=== PATIENT | female | born 1970 | race Caucasian/White ===

== ENCOUNTER → 2016-09-02 | Outpatient (CLI) | payer OTHER ==
[~2016-09-02] MED LIST: IBUP-1427 PO; LEVO50TA PO; METO-157 PO; SUMA1INJ5 SQ; TPM25 PO; VITAMIN B2 PO
[2016-09-02 11:06] LABS: BASO % 0.5 %; BASO ABS # 0.03 K/uL (0-0.2); COMPLETE YES; EOS % 1.9 %; HEMATOCRIT 43.1 % (37-47); IG% 0.2 %; LYMPH % 31.8 %; LYMPH ABS # 1.83 K/uL (1.2-3.4); MEAN CELL VOLUME 90.7 fL (80-100); MEAN CORPUSCULAR HGB CONC 35.3 g/dl (32-36); MEAN PLATELET VOLUME 9.8 fL (7.4-10.4); MONO % 5.4 %; NEUT % 60.2 %; PLATELET COUNT 264 K/uL (130-400); RED BLOOD COUNT 4.75 M/uL (4.2-5.4); WHITE BLOOD COUNT 5.75 K/uL (4.8-10.8)
[2016-09-02 11:59] LABS: BLOOD UREA NITROGEN 12 mg/dl (7-18); CALCIUM 9.4 mg/dl (8.5-10.1); CARBON DIOXIDE 24 mmol/L (21-32); CHLORIDE 107 mmol/L (98-107); CHOLESTEROL 196 mg/dl (0-200); CREATININE 0.65 mg/dl (0.60-1.20); GLUCOSE 80 mg/dl (70-99); POTASSIUM 3.9 mmol/L (3.5-5.1); SODIUM 141 mmol/L (136-145); TRIGLYCERIDES 162 mg/dl (0-150); VERY LOW DENSITY LIPOPROT CALC 32 mg/dl
[2016-09-02 12:08] LABS: ALB/GLOB RATIO 1.2 (0.9-2); ALKALINE PHOSPHATASE 71 U/L (45-117); ALT/SGPT 38 U/L (12-78); AST/SGOT 22 U/L (15-37); CHOLESTEROL/HDL RATIO 3.8; HDL CHOLESTEROL 51 mg/dl; LDL CHOLESTEROL CALCULATED 113 mg/dl
== END | disposition home or self-care (01) ==
LOC: C.LAB 09:38
PROVIDERS: ATTEND Hospitalist
DX: I10 Essential (primary) hypertension (principal); E78.00 Pure hypercholesterolemia, unspecified; R53.1 Weakness; E55.9 Vitamin D deficiency, unspecified

== ENCOUNTER 2016-09-13 18:31 | Emergency (ER) | payer OTHER ==
[~2016-09-13] VITALS: Ht 160 cm; Wt 80.6 kg
[~2016-09-13 18:31] MED LIST changes: -IBUP-1427 PO; -METO-157 PO; -SUMA1INJ5 SQ; -TPM25 PO
[2016-09-13 18:46] VITALS: Ht 160 cm; Wt 80.6 kg
[2016-09-13] MEDS ORDERED: SUMA1INJ5 SQ (19:30)
[2016-09-13] MEDS ORDERED: TPM25 PO (19:30)
[2016-09-13] MEDS ORDERED: METOCLOPRAMIDE HCL INJ 5 MG/ML 2 ML VIAL IV STA (19:42)
[2016-09-13] MEDS ORDERED: KETOROLAC TROMETHAMINE 30 MG/ML VIAL IV STA (19:42)
[2016-09-13] MEDS ORDERED: SODIUM CHLORIDE 0.9% 1000ML 1,000 ML IV STA (19:42)
[2016-09-13] MEDS ORDERED: ONDANSETRON INJ 2 MG/ML 2 ML VIAL IV STA (19:42)
[2016-09-13] MEDS ORDERED: DiphenhydrAMINE HCL 50 MG/ML VIAL IV STA (19:42)
[2016-09-13] MEDS ORDERED: HYDROmorphone INJ 1 MG/ML SYR IV STA (19:42)
--- NOTE | 2016-09-13 19:45 | EMERGENCY ROOM VISIT NOTE ---
History Report prepared by Rosa: Aliya Dyer Under the Supervision of: Dr. Sampson Barcenas M.D. First contact with patient: 19:34 Chief Complaint: HEADACHE Stated Complaint: MIGRAINE, VOMITING History of Present Illness The patient is a 45 year old female who presents to the Emergency Room with complaints of constant pain from headache beginning this morning. The patient notes that she woke up with the headache. She also experienced nausea and vomiting. She was seen at [facility] ED where she was given Dilaudid and Zofran with normally work to treat her headaches. She states she got home and had the headache and vomiting again. She does have chronic migraines and notes that she has been experiencing one once a week for the past 2 months. The patient is followed by a neurologist but has never had imaging done of her head. She denies numbness. Source of History: patient Onset: this morning Position: head Quality: other (headache) Timing: constant Associated Symptoms: + headache, + nausea, + vomiting, No numbness Review of Systems See HPI for pertinent positives & negatives. A total of 10 systems reviewed and were otherwise negative. Past Medical & Surgical Medical Problems: (1) Migraine Surgical Problems: (1) H/O tubal ligation (2) S/P cholecystectomy Family History Patient reports no known family medical history. Social History Smoking Status: Never Smoker Marital Status: Housing Status: lives with family Occupation Status: employed Current/Historical Medications Scheduled Levothyroxine Sodium (Synthroid), 50 MCG PO QAM Topiramate (Topiramate), 25 MG PO HS Scheduled PRN Ibuprofen Tab (Motrin), 600 MG PO Q6H PRN for Pain Metoclopramide (Reglan), 10 MG PO Q6H PRN for Nausea Sumatriptan Succinate (Sumatriptan Succinate), 6 MG SQ UD PRN for Migraine Allergies Coded Allergies: Codeine (Verified Allergy, Intermediate, TACHYCARDIA, CHEST PAIN, 09/13/16) Physical Exam Vital Signs Date Time Temp Pulse Resp B/P Pulse Ox O2 Delivery O2 Flow Rate FiO2 09/13/16 21:29 37.0 83 18 125/69 95 09/13/16 20:43 83 125/69 95 Room Air 09/13/16 18:46 37.0 97 18 147/92 98 Room Air Physical Exam CONSTITUTIONAL: Moderate and severe painful distress, appears nauseous. HEENT: No icterus, moist mucous membranes NECK: No meningismus, trachea is midline. CARDIOVASCULAR: Regular rate, normal perfusion RESPIRATORY: Unlabored breathing. Clear to auscultation. GASTROINTESTINAL: Non-tender GENITOURINARY: No flank tenderness MUSCULOSKELETAL: Full range of motion NEUROLOGIC: No acute gross focal deficits. PSYCHIATRIC: Normal affect SKIN: Normal for ethnicity. Medical Decision & Procedures ER Provider Diagnostic Interpretation: CT results as stated below per my review and radiologist interpretation. CT HEAD WITHOUT CONTRAST (CT) CLINICAL HISTORY: Chronic recurrent headaches. Increasing in intensity. COMPARISON STUDY: No previous studies for comparison. TECHNIQUE: Axial CT of the brain is performed from the vertex to the skull base. IV contrast was not administered for this examination. CT DOSE: 537.48 mGy.cm FINDINGS: No intra or extra-axial mass lesions are visualized. There is no CT evidence of acute cortical infarction. There is no evidence of midline shift. There is no acute hemorrhage. No calvarial fractures are visualized. There is no evidence of pathologic ventricular dilatation. There is partial opacification of a septated anterior left maxillary sinus air cell IMPRESSION: No acute intracranial findings Electronically signed by: Timmy Canales M.D. 09/13/2016 8:29 PM Dictated Date/Time: 09/13/2016 8:28 PM Laboratory Results 09/13/16 19:50 Red Blood Count 4.99, Mean Corpuscular Volume 90.2, Mean Corpuscular Hemoglobin 32.7, Mean Corpuscular Hemoglobin Concent 36.2, Mean Platelet Volume 9.6, Neutrophils (%) (Auto) 85.5, Lymphocytes (%) (Auto) 11.1, Monocytes (%) (Auto) 3.0, Eosinophils (%) (Auto) 0.1, Basophils (%) (Auto) 0.1, Neutrophils # (Auto) 9.07, Lymphocytes # (Auto) 1.18, Monocytes # (Auto) 0.32, Eosinophils # (Auto) 0.01, Basophils # (Auto) 0.01 09/13/16 19:50 Test 09/13/16 19:50 White Blood Count 10.61 K/uL (4.8-10.8) Red Blood Count 4.99 M/uL (4.2-5.4) Hemoglobin 16.3 g/dL (12.0-16.0) Hematocrit 45.0 % (37-47) Mean Corpuscular Volume 90.2 fL (80-100) Mean Corpuscular Hemoglobin 32.7 pg (25-34) Mean Corpuscular Hemoglobin Concent 36.2 g/dl (32-36) Platelet Count 324 K/uL (130-400) Mean Platelet Volume 9.6 fL (7.4-10.4) Neutrophils (%) (Auto) 85.5 % Lymphocytes (%) (Auto) 11.1 % Monocytes (%) (Auto) 3.0 % Eosinophils (%) (Auto) 0.1 % Basophils (%) (Auto) 0.1 % Neutrophils # (Auto) 9.07 K/uL (1.4-6.5) Lymphocytes # (Auto) 1.18 K/uL (1.2-3.4) Monocytes # (Auto) 0.32 K/uL (0.11-0.59) Eosinophils # (Auto) 0.01 K/uL (0-0.5) Basophils # (Auto) 0.01 K/uL (0-0.2) RDW Standard Deviation 42.1 fL (36.4-46.3) RDW Coefficient of Variation 12.8 % (11.5-14.5) Immature Granulocyte % (Auto) 0.2 % Immature Granulocyte # (Auto) 0.02 K/uL (0.00-0.02) Anion Gap 11.0 mmol/L (3-11) Est Creatinine Clear Calc Drug Dose 90.4 ml/min Estimated GFR () 104.8 Estimated GFR (Non- 90.4 BUN/Creatinine Ratio 12.7 (10-20) Calcium Level 9.9 mg/dl (8.5-10.1) Magnesium Level 2.1 mg/dl (1.8-2.4) Chemistry Specimen Hemolysis Labs reviewed by ED physician. Medications Administered Medications (Trade) Dose Ordered Sig/Duane Route Start Time Stop Time Status Last Admin Dose Admin Sodium Chloride (Nss 1000ml) 1,000 ml @ 0 mls/hr Q0M STAT IV 09/13/16 19:42 09/13/16 19:44 DC 09/13/16 20:02 0 MLS/HR Ketorolac Tromethamine (Toradol Inj) 30 mg NOW STAT IV 09/13/16 19:42 09/13/16 19:44 DC 09/13/16 20:03 30 MG Ondansetron HCl (Zofran Inj) 4 mg NOW STAT IV 09/13/16 19:42 09/13/16 19:44 DC 09/13/16 20:03 4 MG Hydromorphone HCl (Dilaudid Inj) 1 mg PRN STAT IV 09/13/16 19:42 09/13/16 19:44 DC 09/13/16 20:02 1 MG Metoclopramide HCl (Reglan Inj) 10 mg NOW STAT IV 09/13/16 19:42 09/13/16 19:44 DC 09/13/16 20:03 10 MG Diphenhydramine HCl (Benadryl Inj) 25 mg NOW STAT IV 09/13/16 19:42 09/13/16 19:44 DC 09/13/16 20:03 25 MG ED Course 1935: Past medical records reviewed. The patient was evaluated in room A3. A complete history and physical examination was performed. 1941: Benadryl Inj 25 mg IV, Reglan Inj 10 mg IV, Dilaudid Inj 1 mg IV, Zofran Inj 4 mg IV, Toradol Inj 30 mg IV, Sodium Chloride 1,000 ml @ 0 mls/hr Wide Open IV. 2107: Upon reexamination the patient is hemodynamically stable. I discussed results and treatment plan with the patient. She verbalizes agreement and understanding. The patient is ready for discharge. Medical Decision Differential diagnoses include but are not limited to; headache, migraine, tumor. 45-year-old with long-standing history of migraine-like headaches becoming increasingly worse over the last few weeks to months occurring nearly once per week presents to emergency room for intractable pain after being seen a local ER. She reports seeing a neurologist but no prior intracranial imaging and no imaging was reportedly performed at the [facility]. Emergency department evaluation including intracranial imaging was negative here and patient was comfortable on reexamination prior to discharge after receiving Toradol, Reglan , Benadryl. Impression Primary Impression: Migraine Scribe Attestation The scribe's documentation has been prepared under my direction and personally reviewed by me in its entirety. I confirm that the note above accurately reflects all work, treatment, procedures, and medical decision making performed by me. Departure Information Dispostion Home / Self-Care Prescriptions Ibuprofen Tab (MOTRIN) 600 Mg Tab 600 MG PO Q6H Y for Pain, #20 TAB Prov: Sampson Barcenas MD 09/13/16 Metoclopramide (Reglan) 10 Mg Tab 10 MG PO Q6H Y for Nausea, #20 TAB Prov: Sampson Barcenas MD 09/13/16 Referrals Alex Durand M.D. (PCP) Forms HOME CARE DOCUMENTATION FORM, IMPORTANT VISIT INFORMATION Patient Instructions ED Headache Migraine, [facility]
[2016-09-13 20:10] LABS: BASO % 0.1 %; BASO ABS # 0.01 K/uL (0-0.2); COMPLETE YES; EOS % 0.1 %; IG% 0.2 %; LYMPH % 11.1 %; LYMPH ABS # 1.18 K/uL (1.2-3.4); MEAN CELL VOLUME 90.2 fL (80-100); MEAN CORPUSCULAR HEMOGLOBIN 32.7 pg (25-34); MEAN CORPUSCULAR HGB CONC 36.2 g/dl (32-36); MEAN PLATELET VOLUME 9.6 fL (7.4-10.4); NEUT % 85.5 %; PLATELET COUNT 324 K/uL (130-400); RED BLOOD COUNT 4.99 M/uL (4.2-5.4); WHITE BLOOD COUNT 10.61 K/uL (4.8-10.8)
--- NOTE | 2016-09-13 20:31 | DIAGNOSTIC IMAGING REPORT ---
CT HEAD WITHOUT CONTRAST (CT) CLINICAL HISTORY: Chronic recurrent headaches. Increasing in intensity. COMPARISON STUDY: No previous studies for comparison. TECHNIQUE: Axial CT of the brain is performed from the vertex to the skull base. IV contrast was not administered for this examination. CT DOSE: 537.48 mGy.cm FINDINGS: No intra or extra-axial mass lesions are visualized. There is no CT evidence of acute cortical infarction. There is no evidence of midline shift. There is no acute hemorrhage. No calvarial fractures are visualized. There is no evidence of pathologic ventricular dilatation. There is partial opacification of a septated anterior left maxillary sinus air cell IMPRESSION: No acute intracranial findings Electronically signed by: Timmy Canales M.D. 09/13/2016 8:29 PM Dictated Date/Time: 09/13/2016 8:28 PM
[2016-09-13 20:37] LABS: BUN/CREATININE RATIO 12.7 (10-20); CALCIUM 9.9 mg/dl (8.5-10.1); CREATININE 0.79 mg/dl (0.60-1.20); MAGNESIUM 2.1 mg/dl (1.8-2.4)
[2016-09-13] MEDS ORDERED: METO-157 PO (21:06)
[2016-09-13] MEDS ORDERED: IBUP-1427 PO (21:06)
[2016-09-13 21:29] VITALS: BP 125/69; PULSE 83; TEMP 37; O2SAT 95
== END 2016-09-13 21:30 | disposition home or self-care (01) ==
LOC: C.EDB 18:33 → C.EDA 21:30
DX: G43.909 Migraine, unspecified, not intractable, without status migrainosus (principal)

== ENCOUNTER → 2016-10-30 | Outpatient (CLI) | payer OTHER ==
[~2016-10-30] MED LIST changes: +GADAVIST IV PRN; +IBUP-1427 PO; +METO-157 PO; +SUMA1INJ5 SQ; +TPM25 PO; -VITAMIN B2 PO
--- NOTE | 2016-11-03 13:48 | MAMMOGRAPHY REPORT ---
BREAST MRI OF BOTH BREASTS : 10/30/2016 CLINICAL HISTORY: Interval follow-up MRI for enhancing focus in the left lower outer quadrant. Jace te history of Hodgkin's lymphoma status post radiation therapy to the chest. Also with a history of bilateral reduction mammoplasty. COMPARISON: Comparison is made to exams dated: 02/27/2016 ultrasound, 02/27/2016 mammogram, and 015 mammogram - [facility]. Breast MRI dated 05/01/2015. Technique: The patient was placed prone in a dedicated breast imaging coil. Precontrast axial T1-we ighted, axial T2-weighted fat saturation, and axial T1-weighted fat saturation images were obtained. After the administration of 8 mL of Gadavist IV contrast, sequential T1-weighted fat saturation im ages were obtained. Subtraction images were obtained of the dynamic contrast enhanced sequences, an d 3-D reformations were performed. The [employer]oon[employer] software was used for kinetic analysis. Findings: There is minimal background parenchymal enhancement involving bilateral breasts. Again noted are po stsurgical changes from bilateral reduction mammoplasty. There are no suspicious enhancing masses o r areas of abnormal non-mass enhancement seen within either breast. The previously seen focus of en hancement within the left lower inner quadrant on prior breast MRI dated 05/01/2015 is no longer evide nt, and is therefore consistent with a benign finding. There is no evidence of axillary adenopathy. The chest wall structures are negative. Extramammary soft tissues are unremarkable. IMPRESSION: ACR BI-RADS CATEGORY 2: BENIGN No MRI evidence of malignancy in either breast. A 1 year screening breast MRI is recommended. The p atient is also due for routine bilateral screening mammograms at this time, if they have not been pe rformed elsewhere. Candy Neves M.D. /:10/30/2016 18:12:13 Assembly Machine Set Up Mechanic: gunner's mate m, [facility] letter sent: Normal 1/2 BI-RADS Code: ACR BI-RADS Category 2: Benign
== END | disposition home or self-care (01) ==
LOC: C.MRI 06:44
PROVIDERS: ATTEND Obstetrics & Gynecology
DX: Z08 Encounter for follow-up examination after completed treatment for malignant neoplasm (principal); Z92.3 Personal history of irradiation; Z85.72 Personal history of non-Hodgkin lymphomas

== ENCOUNTER → 2017-04-01 | Outpatient (CLI) | payer OTHER ==
[~2017-04-01] MED LIST changes: -GADAVIST IV PRN; -IBUP-1427 PO; -METO-157 PO
[2017-04-01 17:53] LABS: ALT/SGPT 37 U/L (12-78); AST/SGOT 21 U/L (15-37); BLOOD UREA NITROGEN 12 mg/dl (7-18); BUN/CREATININE RATIO 14.4 (10-20); CALCIUM 9.7 mg/dl (8.5-10.1); CARBON DIOXIDE 25 mmol/L (21-32); CHLORIDE 108 mmol/L (98-107); CHOLESTEROL 196 mg/dl (0-200); CREATININE 0.84 mg/dl (0.60-1.20); GLUCOSE 80 mg/dl (70-99); POTASSIUM 3.6 mmol/L (3.5-5.1); SODIUM 140 mmol/L (136-145); TRIGLYCERIDES 186 mg/dl (0-150); VERY LOW DENSITY LIPOPROT CALC 37 mg/dl
[2017-04-01 18:00] LABS: BASO % 0.8 %; BASO ABS # 0.04 K/uL (0-0.2); COMPLETE YES; EOS % 1.3 %; HEMATOCRIT 44.7 % (37-47); LYMPH % 40.9 %; LYMPH ABS # 2.13 K/uL (1.2-3.4); MEAN CELL VOLUME 93.3 fL (80-100); MEAN CORPUSCULAR HEMOGLOBIN 31.7 pg (25-34); MEAN PLATELET VOLUME 10.4 fL (7.4-10.4); MONO % 6.1 %; NEUT % 50.9 %; PLATELET COUNT 242 K/uL (130-400); RED BLOOD COUNT 4.79 M/uL (4.2-5.4); WHITE BLOOD COUNT 5.21 K/uL (4.8-10.8)
[2017-04-01 18:02] LABS: ALB/GLOB RATIO 1.3 (0.9-2); ALKALINE PHOSPHATASE 79 U/L (45-117); CHOLESTEROL/HDL RATIO 4.6; HDL CHOLESTEROL 43 mg/dl; LDL CHOLESTEROL CALCULATED 116 mg/dl
== END | disposition home or self-care (01) ==
LOC: C.LABBFT 12:53
PROVIDERS: ATTEND Hospitalist
DX: E03.9 Hypothyroidism, unspecified (principal); G43.919 Migraine, unspecified, intractable, without status migrainosus; E78.00 Pure hypercholesterolemia, unspecified

== ENCOUNTER → 2017-08-06 | Outpatient (CLI) | payer OTHER ==
--- NOTE | 2017-08-07 13:37 | MAMMOGRAPHY REPORT ---
BILATERAL DIGITAL SCREENING MAMMOGRAM TOMOSYNTHESIS WITH CAD: 08/06/2017 CLINICAL HISTORY: Routine screening. Patient has no complaints. TECHNIQUE: Breast tomosynthesis in addition to standard 2D mammography was performed. Current study was also evaluated with a Computer Aided Detection (CAD) system. COMPARISON: Comparison is made to exams dated: 02/27/2016 mammogram, 05/01/2015 mammogram - [facility], 11/29/2013 mammogram, 04/27/2012 mammogram, 03/06/2009 mammogram, and 03/13/2008 mammogr am - [facility]. BREAST COMPOSITION: There are scattered areas of fibroglandular density in both breasts. FINDINGS: No suspicious masses, calcifications, or areas of architectural distortion are noted in ei ther breast. There has been no significant interval change compared to prior exams. Scattered bilater al benign-appearing calcifications are not significantly changed. A biopsy marker clip is again note d within the right upper outer quadrant. Asymmetry superior to the biopsy marker clip in the right s uperior breast is stable dating back to at least the 2008 exam. There are stable changes from bilate ral reduction mammoplasty. IMPRESSION: ACR BI-RADS CATEGORY 2: BENIGN There is no mammographic evidence of malignancy. A 1 year screening mammogram is recommended. The pa tient will receive written notification of the results. Approximately 10% of breast cancers are not detected with mammography. A negative mammographic report should not delay biopsy if a clinically suggestive mass is present. Candy Neves M.D. ah/:08/06/2017 16:24:17 Coagulating Drying Supervisor: Daya JOSEPH(R)(M), [facility] letter sent: Normal 1/2 BI-RADS Code: ACR BI-RADS Category 2: Benign
== END | disposition home or self-care (01) ==
LOC: C.MAMM 09:45
PROVIDERS: ATTEND Obstetrics & Gynecology
DX: Z12.31 Encounter for screening mammogram for malignant neoplasm of breast (principal)

== ENCOUNTER → 2017-11-10 | Outpatient (CLI) | payer OTHER ==
[~2017-11-10] MED LIST changes: +GADAVIST IV PRN
--- NOTE | 2017-11-11 15:36 | MAMMOGRAPHY REPORT ---
BREAST MRI OF BOTH BREASTS : 11/10/2017 CLINICAL HISTORY: 47-year-old woman with a history of bilateral reduction mammoplasty and prior chest radiation for Hodgkin's lymphoma presents for annual screening breast MRI. COMPARISON: Comparison is made to exams dated: 10/30/2016 breast MRI, 08/06/2017 mammogram, 02/27/2016 u ltrasound, 02/27/2016 mammogram, 05/01/2015 breast MRI, and 05/01/2015 mammogram - [facility] enter. TECHNIQUE: Using a 1.5 Joanne magnet and dedicated breast coil, multisequence axial images were obtai arnoldo through the breasts. After uneventful IV administration of 7 mL of Gadavist, dynamic multiphase contrast-enhanced axial images, and sagittal postcontrast were obtained. Temporal subtraction axial images and 3-D MIP images are provided. Everything was then reviewed on a 3-D workstation, [employer]. FINDINGS: There is minimal background parenchymal enhancement in the breasts. Stable non-mass enhancement in th e upper outer posterior right breast comparing to prior breast MRIs, likely representing fibrocystic change. No new suspicious enhancing mass, suspicious non-mass enhancement, suspicious kinetics or un expected architectural distortion identified in either breast. A previously described 4 mm focus of enhancement in the inferior left breast is no longer identified, confirming benignity. No skin thick ening or nipple retraction is seen. No suspicious axillary adenopathy identified. IMPRESSION: ACR BI-RADS CATEGORY 2: BENIGN There is no MRI evidence of malignancy in the breasts. Continuation of annual screening mammography and screening breast MRI is recommended. The patient will receive written notification of the results. Sandrine Pena M.D. ay/:11/10/2017 20:23:46 Combine Operator: enrollment nurse, [facility] letter sent: Normal 1/2 BI-RADS Code: ACR BI-RADS Category 2: Benign
== END | disposition home or self-care (01) ==
LOC: C.MRI 14:49
PROVIDERS: ATTEND Obstetrics & Gynecology
DX: Z92.3 Personal history of irradiation (principal)

== ENCOUNTER → 2017-11-13 | Outpatient (CLI) | payer OTHER ==
[~2017-11-13] MED LIST changes: -GADAVIST IV PRN
== END | disposition home or self-care (01) ==
LOC: C.PATHSPEC 13:26
PROVIDERS: ATTEND Dermatology
DX: D22.5 Melanocytic nevi of trunk (principal)

== ENCOUNTER → 2018-04-16 | Outpatient (CLI) | payer OTHER ==
[2018-04-16 12:32] LABS: BASO % 0.5 %; BASO ABS # 0.03 K/uL (0-0.2); EOS ABS # 0.13 K/uL (0-0.5); HEMATOCRIT 42.8 % (37-47); HEMOGLOBIN 14.3 g/dL (12.0-16.0); IG# 0.01 K/uL (0.00-0.02); LYMPH % 23.3 %; LYMPH ABS # 1.49 K/uL (1.2-3.4); MEAN CELL VOLUME 93.9 fL (80-100); MEAN CORPUSCULAR HEMOGLOBIN 31.4 pg (25-34); MEAN CORPUSCULAR HGB CONC 33.4 g/dl (32-36); MEAN PLATELET VOLUME 10.2 fL (7.4-10.4); MONO % 7.7 %; MONO ABS # 0.49 K/uL (0.11-0.59); NEUT % 66.3 %; NEUT ABS # 4.24 K/uL (1.4-6.5); PLATELET COUNT 248 K/uL (130-400); RED CELL DISTRIBUTION WIDTH CV 14.1 % (11.5-14.5); RED CELL DISTRIBUTION WIDTH SD 48.2 fL (36.4-46.3); WHITE BLOOD COUNT 6.39 K/uL (4.8-10.8)
[2018-04-16 12:57] LABS: ALBUMIN 3.9 gm/dl (3.4-5.0); ALKALINE PHOSPHATASE 82 U/L (45-117); ALT/SGPT 27 U/L (12-78); AST/SGOT 13 U/L (15-37); BLOOD UREA NITROGEN 13 mg/dl (7-18); CARBON DIOXIDE 20 mmol/L (21-32); CHOLESTEROL 200 mg/dl (0-200); CREATININE 0.81 mg/dl (0.60-1.20); GLUCOSE 90 mg/dl (70-99); LDL CHOLESTEROL CALCULATED 123 mg/dl; POTASSIUM 3.8 mmol/L (3.5-5.1); SODIUM 141 mmol/L (136-145); TOTAL PROTEIN 7.4 gm/dl (6.4-8.2)
== END | disposition home or self-care (01) ==
LOC: C.LABBFT 07:36
PROVIDERS: ATTEND Hospitalist
DX: E03.9 Hypothyroidism, unspecified (principal); E78.00 Pure hypercholesterolemia, unspecified; I10 Essential (primary) hypertension

== ENCOUNTER → 2018-04-21 | Outpatient (CLI) | payer OTHER | END | disposition home or self-care (01) | LOC: C.LAB 17:49 | PROVIDERS: ATTEND Hospitalist | DX: E03.9 Hypothyroidism, unspecified (principal); E78.00 Pure hypercholesterolemia, unspecified ==

== ENCOUNTER 2020-09-23 00:44 | Inpatient (IN) ==
[2020-09-23] MEDS ORDERED: ONDANSETRON INJ 2 MG/ML 2 ML VIAL IV STA (01:10)
[2020-09-23] MEDS ORDERED: SODIUM CHLORIDE 0.9% 1000ML 1,000 ML IV ONE (01:10)
[2020-09-23] MEDS ORDERED: HYDROmorphone INJ 1 MG/ML SYRINGE IV STA ×2 (01:13→03:07)
--- NOTE | 2020-09-23 01:28 | Emergency Department Note ---
History of Present Illness General Chief complaint: Abdominal Pain Stated complaint: ABD PAIN FOLLOWING 1ST CHEMO TREATMENT,REF BY DOC Time Seen by Provider: 09/23/20 00:55 Source: patient Mode of arrival: ambulatory Limitations: no limitations History of Present Illness Maximum Pain Intensity: 7 This patient is a 49-year-old female who presents to the emergency department for evaluation of abdominal pain. Patient reports that she is currently undergoing treatment for breast cancer. She is receiving chemotherapy with carboplatin and Abraxane. She received her first dose 3 days ago. She is seen at [place] for oncology. Patient states that about 12 hours ago, she began to develop abdominal pain. Pain has gradually worsened. Pain is all throughout her abdomen, but primarily in the upper abdomen. She describes it as a tight, crampy pain and rates her current discomfort a 7/10. She tried heat, a hot shower, Compazine and an enema without relief. She does report some low back pain and "bone pain" throughout her body. She denies nausea/vomiting or urinary symptoms. She had a normal bowel movement yesterday. She does not have a menstrual period due to history of an ablation. She has a history of cholecystectomy and . Patient additionally reports a history of Hodgkin's lymphoma at age 22. She denies any fevers. Home Medications Medication Instructions Recorded Confirmed Type levothyroxine 50 mcg tablet 50 mcg PO QAM 07/04/19 09/23/20 History Botox 1 unit IM UD 10/26/19 09/23/20 History acetaminophen [Tylenol Extra 1,000 mg PO Q6H PRN 02/28/20 09/23/20 History Strength] ibuprofen [Advil] 600 mg PO Q6H PRN 02/28/20 09/23/20 History dexamethasone 4 mg PO BID PRN 09/23/20 09/23/20 History ondansetron 4 mg PO Q12 PRN 09/23/20 09/23/20 History prochlorperazine maleate 10 mg PO QID PRN 09/23/20 09/23/20 History Allergies Allergy/AdvReac Type Severity Reaction Status Date / Time codeine Allergy Intermediate TACHYCARDIA, Verified 09/23/20 01:36 CHEST PAIN Past Med/Surg History Medical History (Updated 09/23/20 @ 06:47 by Celeste Epstein PA-C) Anxiety Essential hypertension HX OF Family history of reaction to anesthesia mother nausea History of anesthesia reaction DENIES HX ANESTHESIA REACTION(S): REPORTS HX CHEMO BLEOMYCIN (?SPELLING/PT NOT SURE) - WAS TOLD THAT IF HAVING ANESTHESIA TO NOTIFY OF BLEOMYCIN HX AND OXYGEN TOXICITY (PT REPORTS HAS NEVER HAD PROBLEM WITH) History of migraine headaches CURRENT MEDS FOR Hodgkin disease HX OF, HX CHEMO Hypothyroidism Kidney infection CURRENT Kidney stone PONV (postoperative nausea and vomiting) NAUSEA ONLY Surgical History H/O tubal ligation History of 3 sections History of lung biopsy Hx of bilateral breast reduction surgery Hx of cholecystectomy Family History Mother Breast cancer Father Colorectal cancer Social History Smoking Status: Never smoker Second Hand Exposure: No; Do You Dip or Chew Tobacco: No; Hx Alcohol Use: No Hx Substance Use: No Preferred Language: Thai Communication Ability: Effective Visual Impairment: No Limitations Hearing Ability: Normal Produce Clerk Required: No Beliefs That Will Affect Care: None marital status: Current Living Situation: Spouse current occupational status: employed current occupation: Finance [employer] Other Information That Helps Us Care for You: No Feels Safe at Home: Yes Safety Concerns: Feels Safe At This Time Assistive Devices: Glasses Review of Systems A total of 10 systems reviewed and were otherwise negative Physical Exam Vital Signs Vital Signs - 24 hr 09/23/20 00:49 09/23/20 01:27 09/23/20 02:00 Temperature 36.5 C Temperature Source Oral Pulse Rate 88 Pulse Rate [Finger] 86 78 Respiratory Rate 16 18 20 Respiratory Depth Normal Normal Normal Blood Pressure 140/91 Blood Pressure [Right Arm] 130/83 138/81 Blood Pressure Mean 107 Blood Pressure Mean [Right Arm] 98 100 Blood Pressure Position Lying Pulse Oximetry 97 94 93 Oxygen Delivery Method Room Air Room Air Room Air Sepsis Recent Fever Within 48 Hours No Sepsis New/Unexplained Change in Mental Status No Sepsis Action Taken by Nursing No Action Required 09/23/20 03:00 Temperature Temperature Source Pulse Rate Pulse Rate [Finger] 84 Respiratory Rate 18 Respiratory Depth Normal Blood Pressure Blood Pressure [Right Arm] 134/80 Blood Pressure Mean Blood Pressure Mean [Right Arm] 98 Blood Pressure Position Pulse Oximetry 98 Oxygen Delivery Method Room Air Sepsis Recent Fever Within 48 Hours Sepsis New/Unexplained Change in Mental Status Sepsis Action Taken by Nursing VITALS: Vitals are noted on the nurse's note and reviewed by myself. Vital signs stable. GENERAL: This is a 49-year-old female, in no acute distress, well-developed well-nourished. SKIN: The skin was without rashe. HEAD: Normocephalic atraumatic. EARS: External auditory canals clear, tympanic membranes pearly pan without erythema or effusion bilaterally. EYES: Pupils equal round and reactive to light and accommodation. MOUTH: Mucous membranes moist. Tonsils are not enlarged. Pharynx without erythema or exudate. NECK: Supple without nuchal rigidity. No lymphadenopathy. HEART: Regular rate and rhythm without murmurs gallops or rubs. LUNGS: Clear to auscultation bilaterally without wheezes, rales or rhonchi. ABDOMEN: Positive bowel sounds x 4. Soft, moderate generalized tenderness to palpation. No guarding or rebound tenderness. NEURO: Patient was alert and oriented to person place and time. Course Administered Medications Discontinued Medications Hydromorphone HCl (Hydromorphone Inj 1 Mg/Ml Syringe) 1 mg IV NOW STA Stop: 09/23/20 01:14 Last Admin: 09/23/20 01:27 Dose: 1 mg Documented by: [id number] Hydromorphone HCl (Hydromorphone Inj 1 Mg/Ml Syringe) 1 mg IV NOW STA Stop: 09/23/20 03:08 Last Admin: 09/23/20 03:11 Dose: 1 mg Documented by: [id number] Sodium Chloride (Nss 1000ml) 1,000 mls @ 999 mls/hr IV .Q1H1M ONE Stop: 09/23/20 02:10 Last Infusion: 09/23/20 02:27 Dose: 0 mls/hr Documented by: [id number] Admin: 09/23/20 01:26 Dose: 999 mls/hr Documented by: [id number] Lactated Ringer's (Lr) 1,000 mls @ 999 mls/hr IV .Q1H1M ONE Stop: 09/23/20 06:05 Last Admin: 09/23/20 06:08 Dose: 999 mls/hr Documented by: [id number] Ioversol (Ioversol 100ml) 94 ml IV ONCE ONE Stop: 09/23/20 02:26 Last Admin: 09/23/20 02:25 Dose: 94 ml Documented by: [id number] Ketorolac Tromethamine (Ketorolac Tromethamine 15 Mg/Ml Vial) 15 mg IV NOW STA Stop: 09/23/20 02:38 Last Admin: 09/23/20 02:40 Dose: 15 mg Documented by: [id number] Ondansetron HCl (Ondansetron Inj 2 Mg/Ml 2 Ml Vial) 4 mg IV NOW STA Stop: 09/23/20 01:11 Last Admin: 09/23/20 01:27 Dose: 4 mg Documented by: [id number] Medical Decision Making Differential Diagnosis Differential diagnosis includes appendicitis, diverticulitis, bowel obstruction, inflammatory bowel disease, renal colic, PUD, biliary pathology, pancreatitis, mesenteric ischemia, aortic pathology, infection, genitourinary, UTI, perforated viscus, among others. Home Medications Current Medication List: was personally reviewed by me Laboratory Data Attestation: I reviewed the patient's lab results. Result diagrams: 09/23/20 01:12 09/23/20 01:12 Lab Results 09/23/20 09/23/20 Range/Units 01:12 01:12 WBC 13.15 H (4.8-10.8) K/uL RBC 4.55 (4.2-5.4) M/uL Hgb 14.2 (12.0-16.0) g/dL Hct 41.8 (37-47) % MCV 91.9 (80-100) fL MCH 31.2 (25-34) pg MCHC 34.0 (32-36) g/dL RDW Std Deviation 44.2 (36.4-46.3) fL RDW Coeff of Chen 13.3 (11.5-14.5) % Plt Count 220 (130-400) K/uL MPV 10.4 (7.4-10.4) fL Immature Gran % (Auto) 0.2 % Neut % (Auto) 83.3 % Lymph % (Auto) 14.8 % Hockley % (Auto) 1.7 % Eos % (Auto) 0.0 % Baso % (Auto) 0.0 % Neut # (Auto) 10.97 H (1.4-6.5) K/uL Lymph # (Auto) 1.94 (1.2-3.4) K/uL Hockley # (Auto) 0.22 (0.11-0.59) K/uL Eos # (Auto) 0.00 (0-0.5) K/uL Baso # (Auto) 0.00 (0-0.2) K/uL Immature Gran # (Auto) 0.02 (0.00-0.02) K/uL Sodium 138 (136-145) mmol/L Potassium 3.9 (3.5-5.1) mmol/L Chloride 105 (98-107) mmol/L Carbon Dioxide 29 (21-32) mmol/L Anion Gap 4.0 (3-11) BUN 18 (7-18) mg/dl Creatinine 0.67 (0.6-1.2) mg/dl Est Cr Clr Drug Dosing 102.7 ml/min Est GFR ( Amer) 119.6 Est GFR (Non-Af Amer) 103.2 BUN/Creatinine Ratio 27.1 H (10-20) Glucose 97 (70-99) mg/dl Calcium 8.8 (8.5-10.1) mg/dl Total Bilirubin 0.9 (0.2-1) mg/dl AST 15 (15-37) U/L ALT 53 (12-78) U/L Alkaline Phosphatase 72 (45-117) U/L Total Protein 6.8 (6.4-8.2) gm/dl Albumin 3.7 (3.4-5.0) gm/dl Globulin 3.1 (2.5-4.0) gm/dl Albumin/Globulin Ratio 1.2 (0.9-2) Lipase 4301 H (73-393) U/L Imaging Data Attestation: I personally reviewed and interpreted this imaging study as follows: Radiologist's Impression: CT ABDOMEN & PELVIS With Contrast: Prior from 09/18/2020. Mild peripancreatic fat stranding, new since the prior. Consistent with acute pancreatitis. No discrete fluid collection. Normal appendix. Colonic diverticulosis. Bibasilar atelectasis. Right lower lobe peripheral nodule. Similar to prior. Stable calcified left mediastinal lesions, partially visualized. Fatty liver. Cholecystectomy. Nonobstructing left renal calculi. Stable appearance of renal lesions as described on the prior. No hydronephrosis. Radiologist: Kristen Fortune M.D. MDM Narrative Continuous court recording monitor: Order was placed for continuous court recording monitor. Patient was placed on the court recording monitor. Patient was noted to be in normal sinus rhythm at an initial rate of 88 bpm. The patient is a 49-year-old female who presents today complaining of abdominal pain. Patient is currently undergoing chemotherapy for breast cancer. She had her first treatment this past week. Her work-up is consistent with acute guidry creatitis. Lipase is elevated at 4300, labs otherwise show a mild leukocytosis and are unremarkable. CT scan consistent with pancreatitis. Patient was treated with IV fluids, Dilaudid, Zofran and Toradol. Etiology of her pancreatitis is unclear, as she has already had a cholecystectomy and does not drink alcohol. Patient was agreeable to admission. Case discussed with the hospitalist service, who agreed to evaluate patient for further care. Impression & Plan Acute pancreatitis Discharge Plan Visit Data Chief Complaint: Abdominal Pain Stated Complaint: ABD PAIN FOLLOWING 1ST CHEMO TREATMENT,REF BY DOC ED Provider: Karl Parkinson ED Midlevel Provider: Celeste Epstein Discharge Problem: Acute pancreatitis Patient Disposition: Admitted As Inpatient Discharge Instructions Interventions: ED Discharge Assessment Last Done: 09/23/20 04:46 Discharge Problem: Acute pancreatitis Qualifiers: Pancreatitis type: unspecified pancreatitis type Acute pancreatitis complication: unspecified Qualified Code(s): K85.90 - Acute pancreatitis without necrosis or infection, unspecified
[2020-09-23 01:36] LABS: Hematocrit (blood only) 41.8 % (37-47); Hemoglobin 14.2 g/dL (12.0-16.0); Immature Granulocytes # (auto) 0.02 K/uL (0.00-0.02); Immature Granulocytes % (auto) 0.2 %; Lymphocytes # (auto) 1.94 K/uL (1.2-3.4); Lymphocytes % (auto) 14.8 %; Mean Corpuscular Hemoglobin 31.2 pg (25-34); Mean Corpuscular Volume 91.9 fL (80-100); Mean Platelet Volume 10.4 fL (7.4-10.4); Monocytes # (auto) 0.22 K/uL (0.11-0.59); Monocytes % (auto) 1.7 %; Neutrophils # (auto) 10.97 K/uL (1.4-6.5); Neutrophils % (auto) 83.3 %; Platelet Count 220 K/uL (130-400); RDW Coefficient of Variation 13.3 % (11.5-14.5); RDW Standard Deviation 44.2 fL (36.4-46.3); Red Blood Count 4.55 M/uL (4.2-5.4); White Blood Count 13.15 K/uL (4.8-10.8)
[2020-09-23 02:00] LABS: Albumin Level 3.7 gm/dl (3.4-5.0); BUN Creatinine Ratio 27.1 (10-20); Calcium 8.8 mg/dl (8.5-10.1); Creatinine Clr Calc Pharmacy 102.7 ml/min; Est GFR (African American) 119.6; Est GFR (Non-African American) 103.2; Potassium 3.9 mmol/L (3.5-5.1)
[2020-09-23 02:03] LABS: Albumin Globulin Ratio 1.2 (0.9-2); Bilirubin,Total 0.9 mg/dl (0.2-1); Globulin 3.1 gm/dl (2.5-4.0); Total Protein 6.8 gm/dl (6.4-8.2)
[2020-09-23] MEDS ORDERED: IOVERSOL 100ml IV ONE (02:25)
[2020-09-23] MEDS ORDERED: KETOROLAC TROMETHAMINE 15 MG/ML VIAL IV STA (02:37)
--- NOTE | 2020-09-23 04:20 | History & Physical Report ---
Date of Service September 23, 2020 Assessment & Plan (1) Acute pancreatitis: Mrs. Turk is a 49 yo woman who presented to [facility] for evaluation of epigastric pain, admitted with acute pancreatitis. - Lipase 4301 on admission - CT scan showing new peripancreatic fat stranding; no fluid collections (official read pending) - patient given I liter of normal saline in ED. Should get total of 2.4 liters (30ml/kg). 1 liter of LR bolus ordered on admission + LR at 100mls hr for maintenance - NPO - pain control with Iv Tylenol (mild pain), morphine (moderate pain) and dilaudid (severe pain) prn - zofran prn for nausea - repeat Lipase in AM - no history of prior episodes of pancreatitis - as for the etiology: Ca normal at 8.8; patient is s/p cholecystectomy; denies ETOH use; TG mildly elevated in 05/2020. Will repeat level in AM, although suspect it will not be significantly elevated. The timing of this episode is peculiar (3 days after new onset chemotherapy), however I have reviewed both chemo drugs, and neither have acute pancreatitis listed as possible adverse reactions. - I sent E-message to patient's oncologist in [facility] via powerchart to inform of this admission. - If lipase fails to come down, consider MRCP to assess for sphincter of oddi spasm (2) Breast cancer: - detected on routine screening mammogram here at [facility] on 08/15/20 - further characterized by diagnostic mammogram on 08/22/20 at which time a core biopsy was done (ER neg, ID neg, Her-2neu neg, SOX2 neg) - breast MRI obtained 08/29/20 - patient had chemo port placed on 09/14/20 at [facility] - Bone scan on 09/18/20 showed no metastatic involvement - Chest CT scan 09/18/19 showed 7 mm spiculated RLL lung mass; enlarged left axillary nodes that did not meet CT criteria for pathologic involvement - underwent first chemo treatment on 09/19/20 with carboplatin and Abraxane . Took Dexamethasone 4mg, PO, BID for 2 days after chemo - follows with [facility] oncology (3) Hypothyroid: - patient takes levothyroxine 50 mcg daily - order IV replacement while NPO (4) Fatty liver: - noted on A/P ct scan on admission - suspect OGDEN due to lack of ETOH history reported by patient - Liver enzymes not elevated (5) Lung nodule: - 7 mm spiculated nodule noted in R lower lobe on CT scan of chest and A/P within past week at [facility], up from 5mm at previous measurement - [address] follow-up recommended to ensure stability - breast tumor felt to be primary, although may consider lung biopsy given spiculated, enlarged appearance (6) Renal mass: - 1.3 cm intermediate density lesion of the interpolar left kidney is redemonstrated possibly reflective of a proteinaceous or hemorrhagic cyst. 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 - both of the above noted on CT scan of A/P from 09/18/19 Dispo: Med/Surg Diet: NPO. LR at 100mls/hr DVT ppx: Lovenox Code: Full History of Present Illness Primary Care Provider: Alex Durand M.D. Mrs. Turk is a 49 yo woman who presented to the ED for evaluation of epigastric pain that began on the evening of 09/22/20. She denies any associated nausea/vomiting, diarrhea, or urinary symptoms. 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 She had a chemo port placed on 09/14/20 at [facility]; she then underwent her first chemo treatment on 09/19/20 which consists of Carboplatin and Abraxane. This regimen was specifically chosen due to her PMHx of Hodgkin lymphoma (diagnosed in her 20s). She had a nuclear bone scan here at [facility] on 09/18/20, which showed no evidence of metastatic disease. She also had a cat scan of the chest on 09/18/20, which showed a 2.5 cm lobular left breast mass (demarcated by a clip); enlarged left axillary nodes which did not meet criteria for pathologic involvement, and a 7mm subpleural spiculated nodule, up from 5mm at previous scan. In the two days after her chemo infusion, Mrs. Turk was directed to take Dexamethasone, 4mg, PO, BID. She has no history of previous pancreatitis. She denies any ETOH use. She has already had her gallbladder removed. TG from 05/2020 were mildly elevated at 182. Surg hx: cholecystectomy, section In the ED, se was afebrile, HR 74, BP 124/76, breathing well on RA. Her WBC mildly elevated to 13 with neurophil predominance. Hgb normal. Ca normal at 8.8. Cr normal. Lipase elevated to 4301. AST 15. ALT 53. Alk phos 72. CT of a/p showed mild peripancreatic fat stranding; no discrete fluid collection. Normal appendix; fatty liver, L renal lesion, thought to be a hemorrhagic cyst (STADrad). Patient was given 1 liter of normal saline, 2mg IV Dilaudid, 4mg Zofran, 15mg Toradol. Allergies Allergy/AdvReac Type Severity Reaction Status Date / Time codeine Allergy Intermediate TACHYCARDIA, Verified 09/23/20 01:36 CHEST PAIN Home Medications Medication Instructions Recorded Confirmed Type levothyroxine 50 mcg tablet 50 mcg PO QAM 07/04/19 09/23/20 History Botox 1 unit IM UD 10/26/19 09/23/20 History acetaminophen [Tylenol Extra 1,000 mg PO Q6H PRN 02/28/20 09/23/20 History Strength] ibuprofen [Advil] 600 mg PO Q6H PRN 02/28/20 09/23/20 History dexamethasone 4 mg PO BID PRN 09/23/20 09/23/20 History ondansetron 4 mg PO Q12 PRN 09/23/20 09/23/20 History prochlorperazine maleate 10 mg PO QID PRN 09/23/20 09/23/20 History Past Med/Surg History Medical History (Updated 09/23/20 @ 06:47 by Celeste Epstein PA-C) Anxiety Essential hypertension HX OF Family history of reaction to anesthesia mother nausea History of anesthesia reaction DENIES HX ANESTHESIA REACTION(S): REPORTS HX CHEMO BLEOMYCIN (?SPELLING/PT NOT SURE) - WAS TOLD THAT IF HAVING ANESTHESIA TO NOTIFY OF BLEOMYCIN HX AND OXYGEN TOXICITY (PT REPORTS HAS NEVER HAD PROBLEM WITH) History of migraine headaches CURRENT MEDS FOR Hodgkin disease HX OF, HX CHEMO Hypothyroidism Kidney infection CURRENT Kidney stone PONV (postoperative nausea and vomiting) NAUSEA ONLY Surgical History H/O tubal ligation History of 3 sections History of lung biopsy Hx of bilateral breast reduction surgery Hx of cholecystectomy Family History Mother Breast cancer Father Colorectal cancer Social History Smoking Status: Never smoker Second Hand Exposure: No; Do You Dip or Chew Tobacco: No; Hx Alcohol Use: No Hx Substance Use: No Preferred Language: Azeri Communication Ability: Effective Visual Impairment: No Limitations Hearing Ability: Normal Lead Sql Developer Required: No Beliefs That Will Affect Care: None marital status: Current Living Situation: Spouse current occupational status: employed current occupation: Finance [employer] Other Information That Helps Us Care for You: No Feels Safe at Home: Yes Safety Concerns: Feels Safe At This Time Assistive Devices: Glasses Review of Systems Gastrointestinal: + abdominal pain; no nausea, no vomiting and no change in bowel habits Genitourinary: no dysuria and no urinary frequency Physical Exam Constitutional: WD/WN, vitals as above + acute distress (secondary to pain) and cooperative Eyes: + anicteric sclerae ENMT: external ear and nose normal, oropharynx normal Neck: normal visual inspection and trachea midline Respiratory: normal respiratory effort, lungs clear to auscultation Auscultation: no crackles, no rales and no wheezes Cardiovascular: RRR, no murmur, no edema Heart Sounds: normal S1 and normal S2 Extremities: no pedal edema Chest (Breasts): Chest: + vascular access device or port (chemo port) Gastrointestinal (Abdomen): Inspection/Auscultation: abdomen normal to inspection Percussion/Palpation: + abdomen tender (epigastrium, RLQ, suprapubic region) and abdomen soft; no ascites Skin: no rashes, warm and dry Psychiatric: A+Ox3, euthymic affect Results & Data Results & Data ([facility]) Vital Signs (Past 12 Hours) Vital Signs Temp Pulse Pulse Resp BP BP Pulse Ox 09/23/20 03:00 84 18 134/80 98 09/23/20 02:00 78 20 138/81 93 09/23/20 01:27 86 18 130/83 94 09/23/20 00:49 36.5 C 88 16 140/91 97 Supervising Physician Co-Signing Physician Notes Attending addendum: I have physically seen this patient, have supervised the medical residents activities, and agree with the H&P unless as otherwise noted. Assessment and Plan: Acute pancreatitis- Lipase [address] of abdomen pelvis suggest acute pancreatitis. Follow serial laboratories NPO IV Tylenol as needed mild pain. IV morphine as needed moderate pain Dilaudid IV as needed severe pain Received 1 L of normal saline in the ED. Give additional 1 L of normal saline IV bolus now, then 100 mils per hour Remaining orders and notations as noted Resident Activity Tracking Resident Involvement: Resident Care Provided Care Provided: Adult [facility] Medicine
[2020-09-23] MEDS ORDERED: LACTATED RINGER'S 1,000 ML IV SCH (05:05)
[2020-09-23] MEDS ORDERED: LACTATED RINGER'S 1,000 ML IV ONE (05:05)
[2020-09-23 07:12] LABS: Prothrombin Time 10.4 Seconds (9.0-12.0)
--- NOTE | 2020-09-23 07:20 | CT Scan Report ---
CT SCAN OF THE ABDOMEN AND PELVIS WITH IV CONTRAST CLINICAL HISTORY: Generalized abdominal pain. Breast cancer. COMPARISON STUDY: Abdominal CT dated 09/18/2020 and 10/26/2019. TECHNIQUE: Following the IV administration of 94 cc of Optiray 320, CT scan of the abdomen and pelvi s is performed from the lung bases to the proximal femora. Images are reviewed in the axial, sagittal , and coronal planes. IV contrast was administered without complication. A dose lowering technique wa s utilized adhering to the principles of ALARA. CT DOSE: 544.83 mGy.cm FINDINGS: Lung bases: The tip of a central venous infusion port terminates at the cavoatrial junction. Left med iastinal calcifications are unchanged from previous, measuring up to 4.6 cm in length. The heart is n ormal in size and without pericardial effusion. There is bibasilar scarring/atelectasis. No airspace consolidation is seen typical for pneumonia and there is no pleural effusion. A 7 mm pleural-based no dule at the right lung base seen on image #99 is unchanged from previous. There is a tiny hiatal alexis ia. Liver: The contrast-enhanced liver is enlarged measuring 22.6 cm in length. The liver demonstrates di ffusely diminished attenuation consistent with hepatic steatosis. There is no intrahepatic biliary du ctal dilatation. The hepatic veins and portal veins are patent. Gallbladder: Surgically absent noting clips in the gallbladder fossa. Spleen: Normal in size and attenuation. Pancreas: There is peripancreatic infiltration and trace fluid. This is new from 09/18/2020 and is typ ical in appearance for acute pancreatitis. The gland enhances homogeneously. The duct is normal in ca liber. No organized peripancreatic fluid collection is identified. The splenic vein is patent. A 1.4 cm complex/hyperdense cyst arising from the posterior interpolar left kidney is unchanged from previo us. Adrenal glands: Unremarkable. Kidneys: The contrast enhanced kidneys are normal in size and without hydronephrosis. There are nonob structing left renal calculi. The kidneys enhance heterogeneously. Abdominal vasculature: The abdominal aorta is normal in course and caliber. Bowel: There are scattered colonic diverticula without CT evidence of acute diverticulitis. Mild/mode rate fecal retention is noted throughout the colon. There is no bowel obstruction. The appendix is w ell-visualized and normal. Peritoneum: There is no intraperitoneal free air or abdominal ascites. There is a small fat-containin g umbilical hernia. Lymphadenopathy: None. Pelvic viscera: The bladder, uterus, and adnexa are normal as visualized. Skeletal structures: No lytic or blastic lesions are seen. IMPRESSION: 1. Findings are consistent with acute pancreatitis. 2. The pancreas enhances homogeneously and there is no organized peripancreatic fluid collection. 3. There is slightly heterogeneous enhancement of both kidneys. Correlation with clinical findings an d urinalysis will be required. 4. Left-sided nephrolithiasis. 5. Hepatomegaly and hepatic steatosis. 6. A large calcified structure within the left mediastinum is pathologically indeterminant and unchan ged from prior studies. 7. A 7 mm pleural-based nodule at the right lung base is unchanged from previous. Continued attention at follow-up is recommended. 8. Additional findings as above. ACT 112: Negative or not required by law. Electronically signed by: Mukund Hammer M.D. 09/23/2020 7:19 AM
[2020-09-23 07:38] LABS: Lipase 3044 U/L (73-393); Triglycerides 177 mg/dl (0-150)
[2020-09-23 07:45] LABS: Appearance Urine Cloudy (Clear); Bacteria Urine Automated Negative (Negative); Bilirubin Urine Negative (Negative); Blood Urine Negative (Negative); Color Urine Dark Yellow; Epithelial Cell Urine Auto >30 /lpf (0-5); Glucose Urine UA Negative (Negative); Ketones Urine Negative (Negative); Leukocyte Esterase Urine Negative (Negative); Nitrite Urine Negative (Negative); Protein Urine Negative (Negative); RBC Urine Automated 0-4 /hpf (0-4); Specific Gravity Urine > 1.045 (1.000-1.030); Urobilinogen Urine Negative (Negative); pH Urine 7.5 (4.5-7.5)
[2020-09-23] MEDS: ENOXAPARIN INJ 40 MG/0.4 ML SYR SQ SCH (08:40)
[2020-09-23] MEDS: FAMOTIDINE 20 MG in SYRINGE 3 ML IV SCH (08:40)
[2020-09-23] MEDS ORDERED: LEVOTHYROXINE SODIUM 25 MCG in SYRINGE 0 ML IV SCH (09:00)
--- NOTE | 2020-09-23 09:35 | Hospitalist Progress Note ---
Date of Service September 23, 2020 Assessment & Plan (1) Acute pancreatitis: Mrs. Turk is a 49 yo woman w/ hx hypothyroidism, cholecystectomy, and breast cancer (on chemotherapy) who presented to [facility] for evaluation of epigastric pain, admitted with acute pancreatitis of unknown etiology. acute pancreatitis - no prior hx of pancreatitis. is s/p cholecystectomyyears ago. - epigastric pain, severe on admission (06/09), improving - Lipase 4301 on admission - CT scan showing new peripancreatic fat stranding; no fluid collections (official read pending) - patient given I liter of normal saline in ED. Should get total of 2.4 liters (30ml/kg). 1 liter of LR bolus ordered on admission + LR at 100mls hr for maintenance - NPO - pain control with Iv Tylenol (mild pain), morphine (moderate pain) and dilaudid (severe pain) prn - zofran prn for nausea - repeat Lipase in AM - no history of prior episodes of pancreatitis - as for the etiology: Ca normal at 8.8; patient is s/p cholecystectomy; denies ETOH use; TG mildly elevated in 05/2020. Will repeat level in AM, although suspect it will not be significantly elevated. The timing of this episode is peculiar (3 days after new onset chemotherapy carboplatin and paclitaxel on 09/19/20), Per [employer], pancreatitis is a listed side effect of paclitaxel. - Admission resident Dr. Lujan sent msg to patient's oncologist in [facility] via powerchart to inform of this admission. - repeat lipase 3044 - continue IV fluids and pain control breast cancer - detected on routine screening mammogram here at [facility] on 08/15/20 - further characterized by diagnostic mammogram on 08/22/20 at which time a core biopsy was done (ER neg, [place] neg, Her-2neu neg, SOX2 neg) - breast MRI obtained 08/29/20 - patient had chemo port placed on 09/14/20 at [facility] - Bone scan on 09/18/20 showed no metastatic involvement - Chest CT scan 09/18/19 showed 7 mm spiculated RLL lung mass; enlarged left axillary nodes that did not meet CT criteria for pathologic involvement - underwent first chemo treatment on 09/19/20 with carboplatin and Abraxane . Took Dexamethasone 4mg, PO, BID for 2 days after chemo - follows with [facility] oncology hypothyroidism - patient takes levothyroxine 50 mcg daily - admission team ordered IV replacement 25 mcg q72h while NPO. equivalence is .75:1. 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 ANC 10.97H. likely 2/2 acute phase of pancreatitis as opposed to infectious etiology - CT chest did not suggest infectious pathology - incentive spirometer, but deferred at this time d/t epigastric pain - follow clinically renal mass - 1.3 cm intermediate density lesion of the interpolar left kidney is redemonstrated possibly reflective of a proteinaceous or hemorrhagic cyst. 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 - both of the above noted on CT scan of A/P from 09/18/19 Dispo: Med/Surg, likely home 09/24/20 or 09/25/20 FEN/GI: Clear liquids, advance as tolerated (to full liquids, then to low fat). LR at 2000mls/hr DVT ppx: Lovenox Code: Full (2) Breast cancer: (3) Hypothyroid: (4) Fatty liver: (5) Lung nodule: (6) Renal mass: (7) Lung field abnormal finding on examination: Admission and Anticipated Discharge Date Admission Date: September 23, 2020 Supervising Physician Co-Signing Physician Notes I personally examined the patient and verified all colon points of history and exam, discussed case, and agree with decision making with Dr Price. ongoing abdominal pain. no real nausea vitals noted nad heent nc at mmm breathing unlabored no accessory muscles good effort abd soft (+) epigastric tenderness but only with at least moderate palpation, no guarding no rebound acute pancreatitis -no EtOH/stones/TG/etc -- and on review, her paclitaxil based chemo appears that it can cause pancreatitis in some instances - so have to work off this assumption -IVF, supportive care, pain control -clear liquid diet -continue to follow otherwise as above Subjective 4-5/10 intensity epigastric abd pain currently. Last night was 10. NPO this morning. Per patient, scheduled for chemo tx on 09/26/20. Review of Systems Review of Systems: Constitutional: Denies fever, chills Eyes: Denies blurry vision, vision changes Cardiovascular: Denies chest pain, palpitations Respiratory: Denies shortness of breath Gastrointestinal: Denies abdominal pain vomiting, constipation, diarrhea. mild N last night, resolved Genitourinary: Denies urinary symptoms including dysuria Musculoskeletal: Denies weakness.+ arthralgias since 09/20/20 night. chemo was 09/19/20 Neurological: Denies numbness, tingling, focal weakness. Mild BELL. no dizziness. Physical Exam Physical Exam: General: Grossly A&O. NAD. Cooperative. HEENT: Atraumatic, normocephalic. Pulm: LLL quieter. CTAB. No respiratory distress. Cardiac: RRR, -mrg. No le edema. Abdominal: epigastric ttp. no guarding rigidity, nondistended, soft. Results & Data Results & Data ([facility]) Vital Signs (Past 12 Hours) Vital Signs Temp Pulse Pulse Resp BP BP BP 09/23/20 07:28 36.5 C 69 18 108/63 09/23/20 05:06 36.5 C 68 12 130/85 09/23/20 04:46 74 18 122/65 09/23/20 04:00 74 16 124/76 09/23/20 03:00 84 18 134/80 09/23/20 02:00 78 20 138/81 09/23/20 01:27 86 18 130/83 09/23/20 00:49 36.5 C 88 16 140/91 Pulse Ox 09/23/20 07:28 97 09/23/20 05:06 97 09/23/20 04:46 94 09/23/20 04:00 93 09/23/20 03:00 98 09/23/20 02:00 93 09/23/20 01:27 94 09/23/20 00:49 97 Resident Activity Tracking Resident Involvement: Resident Care Provided Care Provided: Adult Hospital Medicine
[2020-09-23] MEDS: HYDROmorphone INJ 1 MG/ML SYRINGE IV PRN ×2 (11:17→20:02)
[2020-09-23] MEDS: LACTATED RINGER'S 1,000 ML IV SCH ×3 (13:05→22:27)
--- NOTE | 2020-09-23 16:04 | Billing Data ---
Date of Service September 23, 2020 Coding Level of Care Code 57240 Subseq Hosp Care Lvl 3
[2020-09-23] MEDS: MoRPHine SULFATE 2 MG/ML CARP IV PRN (17:47)
[2020-09-24] MEDS ORDERED: ONDANSETRON INJ 2 MG/ML 2 ML VIAL ONE (00:59)
[2020-09-24] MEDS: ONDANSETRON INJ 2 MG/ML 2 ML VIAL IV PRN (01:01)
[2020-09-24] MEDS: HYDROmorphone INJ 1 MG/ML SYRINGE IV PRN ×6 (01:01→22:24)
--- NOTE | 2020-09-24 01:17 | Billing Data ---
Date of Service September 24, 2020 Coding Level of Care Code 50652 Initial Inpt Care Lvl 2
[2020-09-24] MEDS: LACTATED RINGER'S 1,000 ML IV SCH ×3 (04:04→19:37)
[2020-09-24] MEDS: MoRPHine SULFATE 2 MG/ML CARP IV PRN (04:05)
[2020-09-24] MEDS: LEVOTHYROXINE SODIUM 50 MCG TABLET PO SCH (05:29)
[2020-09-24 06:22] LABS: Hematocrit (blood only) 38.2 % (37-47); Hemoglobin 13.1 g/dL (12.0-16.0); Mean Corpuscular Hemoglobin 31.3 pg (25-34); Mean Corpuscular Hgb Conc 34.3 g/dL (32-36); Mean Corpuscular Volume 91.4 fL (80-100); Mean Platelet Volume 10.1 fL (7.4-10.4); Platelet Count 174 K/uL (130-400); RDW Coefficient of Variation 13.2 % (11.5-14.5); Red Blood Count 4.18 M/uL (4.2-5.4); White Blood Count 7.33 K/uL (4.8-10.8)
[2020-09-24 06:51] LABS: BUN Creatinine Ratio 16.1 (10-20); Calcium 8.6 mg/dl (8.5-10.1); Est GFR (Non-African American) 112.2; Potassium 3.8 mmol/L (3.5-5.1)
[2020-09-24] MEDS: ACETAMINOPHEN 1000 MG/100 ML IV IV PRN (07:44)
[2020-09-24] MEDS: FAMOTIDINE 20 MG in SYRINGE 3 ML IV SCH (08:13)
[2020-09-24] MEDS: ENOXAPARIN INJ 40 MG/0.4 ML SYR SQ SCH (08:13)
[2020-09-24] MEDS: HEPARIN 100 UNIT/ML 5ML FLUSH FLUSH PRN ×2 (08:15→16:20)
[2020-09-24] MEDS: diphenhydrAMINE Capsule 25 MG CAP PO PRN (09:18)
--- NOTE | 2020-09-24 12:30 | Medical Student Progress Note ---
Date of Service September 24, 2020 Assessment & Plan (1) Acute pancreatitis: Ms. Turk is a 49 year old F w a pmhx of recently diagnosed breast cancer, remote history of Hodgkin's Lymphoma, cholecystectomy (approx 20 years ago), hypothyroidism, and anxiety who presented on 09/23/2020 with a cc of abdominal pain found to have acute pancreatitis. #Acute pancreatitis - Chemotherapy with Carboplatin and Paclitaxel was initiated with Dexamethasone 3 days prior to sx - presented with acute-onset of severe epigastric abdominal pain radiating to the back - CT abdomen on 09/23 showed pancreas homogeneously enhanced and no organized peripancreatic fluid collection, lipase was elevated 4301->3044 - H/o lap ameena, denies alcohol use, on admission triglycerides were only mildly elevated at 177, no previous episodes of pancreatitis - Suspect acute pancreatitis 2/2 Paclitaxel (several reports of pancreatitis with this) vs gallstones/sludge/bile duct stricture/sphincter of Oddi stricture - started on Tylenol (mild pain) PRN, morphine (moderate pain) PRN, Dilaudid/Morphine (severe pain) PRN for pain - adequately controlling pain - IVFs with LR @250cc/hr started on 09/23; transitioned to 200cc/hr-->150cc/hr on 09/24. Total intake 6490 ml with positive fluid balance of 2L. - Tolerating clear liquid diet w/o N/V but not taking in much due to persistent pain - will keep on clears for today - [facility] Oncology called to discuss chemotherapy drugs. They mentioned that dexamethasone can also be a a rare cause of pancreatitis. - MRCP ordered to visualize pancreas/biliary system to r/o anatomical cause - Zofran for nausea - Miralax for constipation #Headache/Migraine - patient has h/o chronic migraines which are usually improved with PRN Benadryl - continue PRN Benadryl while admitted #Breast cancer: - Detected on routine screening mammogram at [facility] on 08/15/20 - Core biopsy was done (ER neg, [place] neg, Her-2neu neg, SOX2 neg) - Breast MRI obtained 08/29/20 - Patient had chemo port placed on 09/14/20 at [facility] - Bone scan on 09/18/20 showed no metastatic involvement - Chest CT scan 09/18/19 showed 7 mm spiculated RLL lung mass; enlarged left axillary nodes that did not meet CT criteria for pathologic involvement - First chemo treatment on 09/19/20 with Carboplatin, Abraxane, and Dexamethe saone. 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 due to lack of ETOH history reported by patient - Liver enzymes not elevated #Lung nodule - 7 mm spiculated nodule noted in R lower lobe on CT scan of chest and A/P within past week at [facility], up from 5mm at previous measurement - suspect metastasis from primary breast cancer - [facility] Heme/Onc will continue to f/u with this after d/c - [address] follow-up recommended #Renal mass - 1.3 cm intermediate density lesion of the interpolar left kidney demonstrated possibly reflective of a proteinaceous or hemorrhagic cyst - 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 - Above findings from CT scan of A/P from 09/18/19 -09/23 showed slightly heterogeneous enhancement of both kidneys and left sided nephrolithiasis - chronic finding, - recommend serial monitoring as outpatient Dispo: Med/surg Diet: Clear Liquids, advance as tolerated. LR at 150 mls/hr DVT prophylaxis: Lovenox Code: Full Acute pancreatitis complication: unspecified Pancreatitis type: unspecified pancreatitis type Qualified Code(s): K85.90 - Acute pancreatitis without necrosis or infection, unspecified (2) Renal mass: (3) Lung nodule: (4) Fatty liver: (5) Hypothyroid: (6) Breast cancer: (7) Chronic migraine: Admission and Anticipated Discharge Date Admission Date: September 23, 2020 Supervising Attestation Attending attestation Pt seen and examined in concert with Std. Dr. Naranjo, Dr. Guadarrama. In agreement with the documented findings as noted in the resident documentation with any exceptions or additions as noted here. Some improvement in pain duration, but pain severity is still relatively unchanged from yesterday per pt. Minimal tolerance of POI at present. On examination, S1/S2 nl RRR no MCG. CTAB. Abd diffusely tender, worse at the flanks bilaterally and epigastrium with BS diffusely throughout. No significant extremity edema. Pancreatitis, acute - continue IV hydration with LR at 150cc/hr. Pain control with dilaudid q3h with morphine and APAP. Advance diet as tolerated. MRCP pending. Migraine headache, chronic - benadryl PRN as ordered. Continue hydration and pain control as noted. Breast cancer - s/p initial treatment w/ carboplatin, abraxane, dexamethasone. Else see resident documentation as noted. Subjective No acute events overnight. She is feeling fatigued from the Dilaudid. Says Dilaudid brought her abdominal pain from a 7/10 to 4/10. Pain localized to epigastric region. Has a headache and says Benadryl usually helps. No n/v. Drinking a little on a clear liquid diet. Urinating. Last BM on Thursday. Able to ambulate. Review of Systems Review of Systems: All systems reviewed & are unremarkable except as noted in HPI & below Physical Exam Physical Exam: GENERAL: Well developed, well nourished, NAD, lying in hospital bed HEENT: Normocephalic, atraumatic, anicteric RESPIRATORY: clear to auscultation b/l with no wheezes, rhonchi or rales, no labored breathing with good air movement CARDIOVASCULAR: RRR, no murmurs, gallops or rubs, no leg edema ABD: Soft, tenderness to light palpation in all quadrants, nondistended, hypoactive bowl sounds SKIN: warm, dry, no rashes, bruises or lesions NEURO: Alerted and oriented X3 PSYCH: speech somewhat slowed, thought process linear, affect appropriate Results & Data ([facility]) Vital Signs (Past 12 Hours) Vital Signs Temp Pulse Resp BP Pulse Ox 09/24/20 07:21 37.1 C 85 16 133/79 92
[2020-09-24] MEDS ORDERED: POLYETHYLENE (MIRALAX) 17 GM PACK PO PRN (14:03)
--- NOTE | 2020-09-24 16:08 | Hospitalist Progress Note ---
Date of Service September 24, 2020 Assessment & Plan (1) Acute pancreatitis: Mrs. Turk is a 49 yo woman w/ hx hypothyroidism, cholecystectomy, and breast cancer (on chemotherapy) who presented to [facility] for evaluation of epigastric pain, admitted with acute pancreatitis of unknown etiology. acute pancreatitis - no prior hx of pancreatitis. is s/p cholecystectomyyears ago. - epigastric pain, severe on admission (06/09), improving - Lipase 4301 on admission - CT scan showing new peripancreatic fat stranding; no fluid collections (official read pending) - patient given I liter of normal saline in ED. Should get total of 2.4 liters (30ml/kg). 1 liter of LR bolus ordered on admission + LR at 100mls hr for maintenance - NPO - pain control with Iv Tylenol (mild pain), morphine (moderate pain) and dilaudid (severe pain) prn - zofran prn for nausea - repeat Lipase in AM - no history of prior episodes of pancreatitis - as for the etiology: Ca normal at 8.8; patient is s/p cholecystectomy; denies ETOH use; TG mildly elevated in 05/2020. Will repeat level in AM, although suspect it will not be significantly elevated. The timing of this episode is peculiar (3 days after new onset chemotherapy carboplatin and paclitaxel on 09/19/20), Per [employer], pancreatitis is a listed side effect of paclitaxel. - Admission resident Dr. Lujan sent msg to patient's oncologist [place] [facility] [place] powerchart to inform of this admission. - repeat lipase 3044 - continue IV fluids and pain control breast cancer - detected on routine screening mammogram here at [facility] on 08/15/20 - further characterized by diagnostic mammogram on 08/22/20 at which time a core biopsy was done (ER neg, [place] neg, Her-2neu neg, SOX2 neg) - breast MRI obtained 08/29/20 - patient had chemo port placed on 09/14/20 [place] [facility] - Bone scan on 09/18/20 showed no metastatic involvement - Chest CT scan 09/18/19 showed 7 mm spiculated RLL lung mass; enlarged left axillary nodes that did not meet CT criteria for pathologic involvement - underwent first chemo treatment on 09/19/20 with carboplatin and Abraxane . Took Dexamethasone 4mg, PO, BID for 2 days after chemo - follows with [facility] oncology hypothyroidism - patient takes levothyroxine 50 mcg daily - admission team ordered IV replacement 25 mcg q72h while NPO. equivalence is .75:1. 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 ANC 10.97H. likely 2/2 acute phase of pancreatitis as opposed to infectious etiology - CT chest did not suggest infectious pathology - incentive spirometer, but deferred at this time d/t epigastric pain - follow clinically renal mass - 1.3 cm intermediate density lesion of the interpolar left kidney is redemonstrated possibly reflective of a proteinaceous or hemorrhagic cyst. 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 - both of the above noted on CT scan of A/P from 09/18/19 Dispo: Med/Surg, likely home 09/24/20 or 09/25/20 FEN/GI: Clear liquids, advance as tolerated (to full liquids, then to low fat). LR at 2000mls/hr DVT ppx: Lovenox Code: Full (2) Breast cancer: - detected on routine screening mammogram here at [facility] on 08/15/20 - further characterized by diagnostic mammogram on 08/22/20 at which time a core biopsy was done (ER neg, IA neg, Her-2neu neg, SOX2 neg) - breast MRI obtained 08/29/20 - patient had chemo port placed on 09/14/[place] [facility] - Bone scan on 09/18/20 showed no metastatic involvement - Chest CT scan 09/18/19 showed 7 mm spiculated RLL lung mass; enlarged left axi llary nodes that did not meet CT criteria for pathologic involvement - underwent first chemo treatment on 09/19/20 with carboplatin and Abraxane . 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 - both of the above noted on CT scan of A/P from 09/18/19 Dispo: Med/Surg Diet: NPO. LR at 100mls/hr DVT ppx: Lovenox Code: Full (7) Lung field abnormal finding on examination: Admission and Anticipated Discharge Date Admission Date: September 23, 2020 Results & Data Results & Data ([facility]) Vital Signs (Past 12 Hours) Vital Signs Temp Pulse Resp BP Pulse Ox 09/24/20 15:48 36.9 C 78 16 117/77 93 09/24/20 07:21 37.1 C 85 16 133/79 92
--- NOTE | 2020-09-24 17:00 | Magnetic Resonance Report ---
MRCP CLINICAL HISTORY: Acute pancreatitis. TECHNIQUE: Utilizing a 1.5 Joanne magnet and dedicated coil, multiplanar, multiecho imaging of the [facility] abdomen was performed utilizing heavily T2 weighted pulsing sequences without IV contrast. COMPARISON STUDY: CT of the abdomen and pelvis September 20, 2020. FINDINGS: The caliber of the common bile duct is at the upper limits of normal, measuring 7 mm, follo wing cholecystectomy. No common bile duct calculi are identified. The course and caliber of the main pancreatic duct are normal. There is no fluid collection within the cholecystectomy bed. No hepatic l esions are identified on this unenhanced examination. There is a trace left pleural effusion. There i s trace ascites within the left upper quadrant. Note is made of mild infiltration adjacent to the guidry creas. No peripancreatic fluid collection is present. A 1.3 cm lesion within the midpole of the left kidney likely reflects a proteinaceous cyst when correlating with prior noncontrast CT of October. There is no hydronephrosis. Unenhanced images of the spleen and adrenal glands are unremarkab le. The caliber and wall thickness of visualized small and large bowel are normal. IMPRESSION: 1. Top normal caliber common bile duct following cholecystectomy. No common bile duct calculi. 2. Mild peripancreatic infiltration and fluid consistent with acute pancreatitis. No peripancreatic f luid collections. ACT 112: Negative or not required by law. Electronically signed by: Olayinka Silva M.D. 09/24/2020 4:59 PM
[2020-09-25] MEDS: diphenhydrAMINE Capsule 25 MG CAP PO PRN (00:02)
[2020-09-25] MEDS: HYDROmorphone INJ 1 MG/ML SYRINGE IV PRN ×8 (02:13→23:44)
[2020-09-25] MEDS: LACTATED RINGER'S 1,000 ML IV SCH ×4 (02:59→21:46)
[2020-09-25] MEDS: ACETAMINOPHEN 1000 MG/100 ML IV IV PRN (04:46)
[2020-09-25 06:19] LABS: Eosinophils # (auto) 0.21 K/uL (0-0.5); Eosinophils % (auto) 3.3 %; Hematocrit (blood only) 36.9 % (37-47); Hemoglobin 13.1 g/dL (12.0-16.0); Immature Granulocytes # (auto) 0.05 K/uL (0.00-0.02); Immature Granulocytes % (auto) 0.8 %; Mean Corpuscular Hemoglobin 32.5 pg (25-34); Mean Corpuscular Hgb Conc 35.5 g/dL (32-36); Mean Corpuscular Volume 91.6 fL (80-100); Mean Platelet Volume 10.5 fL (7.4-10.4); Monocytes # (auto) 0.03 K/uL (0.11-0.59); Monocytes % (auto) 0.5 %; Neutrophils # (auto) 4.84 K/uL (1.4-6.5); Neutrophils % (auto) 76.4 %; Platelet Count 218 K/uL (130-400); RDW Coefficient of Variation 13.3 % (11.5-14.5); RDW Standard Deviation 44.8 fL (36.4-46.3); Red Blood Count 4.03 M/uL (4.2-5.4); White Blood Count 6.33 K/uL (4.8-10.8)
[2020-09-25] MEDS: LEVOTHYROXINE SODIUM 50 MCG TABLET PO SCH (06:40)
[2020-09-25 06:47] LABS: BUN Creatinine Ratio 14.8 (10-20); Calcium 9.2 mg/dl (8.5-10.1); Creatinine Clr Calc Pharmacy 148.1 ml/min; Est GFR (African American) 135.4; Est GFR (Non-African American) 116.8; Potassium 3.7 mmol/L (3.5-5.1)
[2020-09-25] MEDS: ENOXAPARIN INJ 40 MG/0.4 ML SYR SQ SCH (08:55)
[2020-09-25] MEDS: FAMOTIDINE 20 MG in SYRINGE 3 ML IV SCH (09:31)
--- NOTE | 2020-09-25 12:38 | Hospitalist Progress Note ---
Date of Service September 25, 2020 Assessment & Plan (1) Acute pancreatitis: Ms. Turk is a 49 year old F w a pmhx of recently diagnosed breast cancer, remote history of Hodgkin's Lymphoma, cholecystectomy (approx 20 years ago), hypothyroidism, and anxiety who presented on 09/23/2020 with a cc of abdominal pain found to have acute pancreatitis. #Acute pancreatitis - history, exam findings, elevated lipase and CT abd support diagnosis of acute pancreatitis - MRCP on 09/24 showed no abnormalities in biliary tree - Suspect acute pancreatitis 2/2 Paclitaxel vs Idiopathic - continue IVFs - LR @150cc/hr - pain adequately controlled with current regimen - continue - tolerating clear liquid diet w/o N/V but decreased intake due to persistent pain - will attempt to advance to full liquid diet tomorrow as tolerated #Headache/Migraine - patient has h/o chronic migraines which are usually improved with PRN Benadryl - continue PRN Benadryl while admitted #Breast cancer: - Detected on routine screening mammogram at [facility] on 08/15/20 - Core biopsy was done (ER neg, NV neg, Her-2neu neg, SOX2 neg) - Breast MRI obtained 08/29/20 - Patient had chemo port placed on 09/14/20 at [facility] - Bone scan on 09/18/20 showed no metastatic involvement - Chest CT scan 09/18/19 showed 7 mm spiculated RLL lung mass; enlarged left axillary nodes that did not meet CT criteria for pathologic involvement - First chemo treatment on 09/19/20 with Carboplatin, Abraxane, and Dexamethesaone. 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 due to lack of ETOH history reported by patient - Liver enzymes not elevated #Lung nodule - 7 mm spiculated nodule noted in R lower lobe on CT scan of chest and A/P within past week at [facility], up from 5mm at previous measurement - suspect metastasis from primary breast cancer - [facility] Heme/Onc will continue to f/u with this after d/c - [address] follow-up recommended #Renal mass - 1.3 cm intermediate density lesion of the interpolar left kidney demonstrated possibly reflective of a proteinaceous or hemorrhagic cyst - 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 - Above findings from CT scan of A/P from 09/18/19 -09/23 showed slightly heterogeneous enhancement of both kidneys and left sided nephrolithiasis - chronic finding, - recommend serial monitoring as outpatient Dispo: Med/surg Diet: Clear Liquids, advance as tolerated. LR at 150 mls/hr DVT prophylaxis: Lovenox Code: Full (2) Renal mass: (3) Lung nodule: (4) Fatty liver: (5) Hypothyroid: (6) Breast cancer: (7) Chronic migraine: Admission and Anticipated Discharge Date Admission Date: September 23, 2020 Supervising Physician Co-Signing Physician Notes Attending attestation Pt seen and examined in concert with Dr. Guadarrama. In agreement with the documented findings as noted in the resident documentation with any exceptions or additions as noted here. Tolerating pain with present medication with some increased activity. Still not tolerating POI well enough to advance. On examination, S1/S2 nl RRR no MCG. CTAB. Abd diffusely tender, worse at the flanks bilaterally and epigastrium with BS diffusely throughout. No significant extremity edema. Pancreatitis, acute - LR at 150cc/hr. Continue to encourage use of dilaudid q3h with morphine and APAP. Advance diet as tolerated. MRCP reviewed without apparent causation of pancreatitis. Migraine headache, chronic - benadryl PRN as ordered. Continue hydration and pain control as noted. Breast cancer - s/p initial treatment w/ carboplatin, abraxane, dexamethasone. Else see resident documentation as noted. Subjective No acute events overnight. Patient reports 3-5/10 pain adequately controlled with current pain medications. Still reports uneasiness with tolerating clear liquid diet due to abdominal pain and nausea. Denies fever/chills, chest pain, SOB, vomiting. Review of Systems Review of Systems: Pertinent positives and negatives mentioned in HPI. Physical Exam Physical Exam: General: A&Ox3. NAD. Cooperative. HEENT: Atraumatic, normocephalic. Pulm: CTAB A&P. -wheezes, -rales, -rhonchi. Symmetrical chest rise. No increase work of breathing. No respiratory distress. Cardiac: RRR, -mrg. Radial pulses intact and symmetrical. Abdominal: soft, non-distended, moderate-severe TTP of epigastric region, BS x 4 Results & Data Results & Data ([facility]) Vital Signs (Past 12 Hours) Vital Signs Temp Pulse Resp BP Pulse Ox 09/25/20 07:31 36.7 C 77 16 112/75 93 Resident Activity Tracking Resident Involvement: Resident Care Provided Care Provided: Adult Hospital Medicine (1) Acute pancreatitis Acute pancreatitis complication: unspecified Pancreatitis type: unspecified pancreatitis type Qualified Code(s): K85.90 - Acute pancreatitis without necrosis or infection, unspecified
[2020-09-25] MEDS: HEPARIN 100 UNIT/ML 5ML FLUSH FLUSH PRN (13:28)
[2020-09-26] MEDS: HYDROmorphone INJ 1 MG/ML SYRINGE IV PRN ×7 (01:58→20:49)
[2020-09-26] MEDS: LACTATED RINGER'S 1,000 ML IV SCH ×4 (04:05→23:33)
[2020-09-26] MEDS: ONDANSETRON INJ 2 MG/ML 2 ML VIAL IV PRN (05:44)
[2020-09-26] MEDS: LEVOTHYROXINE SODIUM 50 MCG TABLET PO SCH (05:48)
[2020-09-26 06:06] LABS: Basophils # (auto) 0.01 K/uL (0-0.2); Basophils % (auto) 0.2 %; Eosinophils # (auto) 0.26 K/uL (0-0.5); Eosinophils % (auto) 5.4 %; Hematocrit (blood only) 36.7 % (37-47); Hemoglobin 12.4 g/dL (12.0-16.0); Immature Granulocytes # (auto) 0.02 K/uL (0.00-0.02); Immature Granulocytes % (auto) 0.4 %; Lymphocytes # (auto) 1.37 K/uL (1.2-3.4); Lymphocytes % (auto) 28.6 %; Mean Corpuscular Hemoglobin 31.2 pg (25-34); Mean Corpuscular Hgb Conc 33.8 g/dL (32-36); Mean Corpuscular Volume 92.4 fL (80-100); Mean Platelet Volume 10.2 fL (7.4-10.4); Monocytes # (auto) 0.18 K/uL (0.11-0.59); Monocytes % (auto) 3.8 %; Neutrophils # (auto) 2.95 K/uL (1.4-6.5); Neutrophils % (auto) 61.6 %; Platelet Count 216 K/uL (130-400); RDW Coefficient of Variation 13.1 % (11.5-14.5); RDW Standard Deviation 44.4 fL (36.4-46.3); Red Blood Count 3.97 M/uL (4.2-5.4); White Blood Count 4.79 K/uL (4.8-10.8)
[2020-09-26 06:32] LABS: Albumin Level 2.9 gm/dl (3.4-5.0); BUN Creatinine Ratio 9.5 (10-20); Calcium 9.2 mg/dl (8.5-10.1); Creatinine Clr Calc Pharmacy 128.5 ml/min; Est GFR (African American) 129.2; Est GFR (Non-African American) 111.5; Potassium 3.7 mmol/L (3.5-5.1)
[2020-09-26 06:34] LABS: Albumin Globulin Ratio 0.8 (0.9-2); Bilirubin,Total 0.8 mg/dl (0.2-1); Globulin 3.6 gm/dl (2.5-4.0); Total Protein 6.5 gm/dl (6.4-8.2)
[2020-09-26] MEDS: FAMOTIDINE 20 MG in SYRINGE 3 ML IV SCH (08:36)
[2020-09-26] MEDS: ENOXAPARIN INJ 40 MG/0.4 ML SYR SQ SCH (08:36)
--- NOTE | 2020-09-26 11:07 | Medical Student Progress Note ---
Date of Service September 26, 2020 Assessment & Plan Admission and Anticipated Discharge Date Admission Date: Ms. Turk is a 49 year old F w a pmhx of recently diagnosed breast cancer, remote history of Hodgkin's Lymphoma, cholecystectomy (approx 20 years ago), hypothyroidism, and anxiety who presented on 09/23/2020 with a cc of abdominal pain found to have acute pancreatitis. #Acute pancreatitis - history, exam findings, elevated lipase and CT abd support diagnosis of acute pancreatitis - MRCP on 09/24 showed no abnormalities in biliary tree - Suspect acute pancreatitis 2/2 Paclitaxel vs Idiopathic - Lipases downtrending - Continue IVFs - LR @150cc/hr - Pain adequately controlled with current regimen - continue - Tolerating clear liquid diet w/o N/V - Attempt to advance full liquid diet this afternoon #Transaminitis - Elevated liver enzymes. 09/26: ALT 436, AST 75, and AlkPhos 181 - Liver enzymes wnl at baseline - Pt. has asx fatty liver found on CT scan - Possibly 2/2 choledocholithiasis/sludge even though not visualized on MRCP - Will consult GI re above - Will repeat liver enzymes tomorrow am # Fatty liver - Detected on CT scan - suspect OGDEN due to lack of ETOH history reported by patient #Headache/Migraine - patient has h/o chronic migraines which are usually improved with PRN Benadryl - continue PRN Benadryl #Breast cancer: - Detected on routine screening mammogram at [facility] on 08/15/20 - Core biopsy was done (ER neg, IN neg, Her-2neu neg, SOX2 neg) - Breast MRI obtained 08/29/20 - Patient had chemo port placed on 09/14/20 at [facility] - Bone scan on 09/18/20 showed no metastatic involvement - Chest CT scan 09/18/19 showed 7 mm spiculated RLL lung mass; enlarged left axillary nodes that did not meet CT criteria for pathologic involvement - First chemo treatment on 09/19/20 with Carboplatin, Abraxane, and Dexamethesaone. 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 - Above findings from CT scan of A/P from 09/18/19 -09/23 showed slightly heterogeneous enhancement of both kidneys and left sided nephrolithiasis - chronic finding, - recommend serial monitoring as outpatient Dispo: Med/surg Diet: Full liquids, advance as tolerated. LR at 150 mls/hr DVT prophylaxis: Lovenox Code: Full Supervising Attestation Attending attestation Pt seen and examined in concert with Std. Dr. Naranjo, Dr. Guadarrama. In agreement with the documented findings as noted in the resident documentation with any exceptions or additions as noted here. Progressively improving pain with current regimen and tolerance of clear diet, considering advance to full liquids today. On examination, S1/S2 nl RRR no MCG. CTAB. Abd diffusely tender, worse at the flanks bilaterally and epigastrium with BS diffusely throughout which have increased from yesterday. No significant extremity edema. Pancreatitis, acute - LR at 150cc/hr. Continue Dilaudid q3h with morphine and APAP. Advance diet to full liquid today. Continue famotidine. Transaminitis, mild - trend CMP, consider GI consultation ?ERCP if increasing to r/o underlying cause aside from iatrogenic/medication for pancreatitis. Migraine headache, chronic - benadryl PRN as ordered. Continue hydration and pain control as noted. Breast cancer - s/p initial treatment w/ carboplatin, abraxane, dexamethasone, notified oncology at [facility] re: current symptoms, will update on discharge. Else see resident documentation as noted. Subjective Ms. Turk says "I think I'm feeling better." Abdominal pain has improved since yesterday. turning lathe tender and radiating to back on left but decreased pain. She mentions that she is getting ahead of pain and taking Dilaudid q2 hours. Slept well through the night. Did not take Dilaudid at 6 am because of nausea. No emesis. Tolerating clear liquids this am and wants to try increasing her diet at lunchtime. Reports that her urine remains dark and her BMs have been loose. She has been ambulating. Review of Systems Review of Systems: All systems reviewed & are unremarkable except as noted in HPI & below Physical Exam Physical Exam: GENERAL: Well developed, well nourished, NAD, appears more comfortable than yesterday, sitting upright in hospital bed drinking clear liquids HEENT: anicteric, oropharynx moist, no erythema, no intraoral masses RESPIRATORY: clear to auscultation b/l with no wheezes, rhonchi or rales, no labored breathing with good air movement CARDIOVASCULAR: RRR, no murmurs, gallops or rubs, no lower extremity edema ABD: Soft, diffusely tender worse in epigastric region - improved from yesterday , hypoactive bowel sounds, no hepatosplenomegaly SKIN: warm, dry, no rashes, bruises or lesions NEURO: Alerted and oriented X3 PSYCH: speech nl rate and volume, thought process linear, affect appropriate Results & Data ([facility]) Vital Signs (Past 12 Hours) Vital Signs Temp Pulse Resp BP BP Pulse Ox 09/26/20 07:08 36.7 C 70 14 110/76 95 09/25/20 23:41 36.9 C 76 16 116/77 94 Resident Activity Tracking Resident Involvement: Resident Care Provided Care Provided: Adult Hospital Medicine
[2020-09-26] MEDS ORDERED: HYDROCORTISONE 1% CRM 30 GM TUBE EXT PRN (21:04)
[2020-09-27] MEDS: HYDROmorphone INJ 1 MG/ML SYRINGE IV PRN (01:24)
[2020-09-27] MEDS: LEVOTHYROXINE SODIUM 50 MCG TABLET PO SCH (05:55)
[2020-09-27] MEDS: LACTATED RINGER'S 1,000 ML IV SCH ×2 (05:56→12:11)
[2020-09-27] MEDS: ACETAMINOPHEN 325 MG TAB PO PRN ×3 (07:28→16:15)
[2020-09-27] MEDS: FAMOTIDINE 20 MG in SYRINGE 3 ML IV SCH (07:28)
[2020-09-27] MEDS: ENOXAPARIN INJ 40 MG/0.4 ML SYR SQ SCH (07:29)
[2020-09-27 07:41] LABS: Eosinophils # (auto) 0.14 K/uL (0-0.5); Eosinophils % (auto) 3.5 %; Hemoglobin 12.4 g/dL (12.0-16.0); Immature Granulocytes # (auto) 0.01 K/uL (0.00-0.02); Immature Granulocytes % (auto) 0.2 %; Lymphocytes # (auto) 1.36 K/uL (1.2-3.4); Lymphocytes % (auto) 33.7 %; Mean Corpuscular Hemoglobin 31.6 pg (25-34); Mean Corpuscular Hgb Conc 34.4 g/dL (32-36); Mean Corpuscular Volume 91.6 fL (80-100); Mean Platelet Volume 9.7 fL (7.4-10.4); Monocytes # (auto) 0.28 K/uL (0.11-0.59); Monocytes % (auto) 6.9 %; Neutrophils # (auto) 2.24 K/uL (1.4-6.5); Neutrophils % (auto) 55.7 %; Platelet Count 291 K/uL (130-400); RDW Coefficient of Variation 13.2 % (11.5-14.5); RDW Standard Deviation 44.5 fL (36.4-46.3); Red Blood Count 3.93 M/uL (4.2-5.4); White Blood Count 4.03 K/uL (4.8-10.8)
[2020-09-27 08:29] LABS: Albumin Level 2.8 gm/dl (3.4-5.0); BUN Creatinine Ratio 6.1 (10-20); Calcium 9.7 mg/dl (8.5-10.1); Creatinine Clr Calc Pharmacy 121.6 ml/min; Est GFR (African American) 126.9; Est GFR (Non-African American) 109.5; Potassium 3.8 mmol/L (3.5-5.1)
[2020-09-27 08:32] LABS: Albumin Globulin Ratio 0.8 (0.9-2); Bilirubin,Total 0.5 mg/dl (0.2-1); Globulin 3.7 gm/dl (2.5-4.0); Total Protein 6.5 gm/dl (6.4-8.2)
--- NOTE | 2020-09-27 16:49 | Med Student Discharge Summary ---
Date of Service September 27, 2020 Admission HPI Per Admitting Provider Mrs. Turk is a 49 yo woman who presented to the ED for evaluation of epigastric pain that began on the evening of 09/22/20. She denies any associated nausea/vomiting, diarrhea, or urinary symptoms. 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 She had a chemo port placed on 09/14/[address] [facility]; she then underwent her first chemo treatment on 09/19/20 which consists of Carboplatin and Abraxane. This regimen was specifically chosen due to her PMHx of Hodgkin lymphoma (d iagnosed in her 20s). She had a nuclear bone scan here at [facility] on 09/18/20, which showed no evidence of metastatic disease. She also had a cat scan of the chest on 09/18/20, which showed a 2.5 cm lobular left breast mass (demarcated by a clip); enlarged left axillary nodes which did not meet criteria for pathologic involvement, and a 7mm subpleural spiculated nodule, up from 5mm at previous scan. In the two days after her chemo infusion, Mrs. Turk was directed to take Dexamethasone, 4mg, PO, BID. She has no history of previous pancreatitis. She denies any ETOH use. She has already had her gallbladder removed. TG from 05/2020 were mildly elevated at 182. Surg hx: cholecystectomy, section In the ED, se was afebrile, HR 74, BP 124/76, breathing well on RA. Her WBC mildly elevated to 13 with neurophil predominance. Hgb normal. Ca normal at 8.8. Cr normal. Lipase elevated to 4301. AST 15. ALT 53. Alk phos 72. CT of a/p showed mild peripancreatic fat stranding; no discrete fluid collection. Normal appendix; fatty liver, L renal lesion, thought to be a hemorrhagic cyst ([facility]). Patient was given 1 liter of normal saline, 2mg IV Dilaudid, 4mg Zofran, 15mg Toradol. Discharge Data Consultations 09/23/20 03:52 ED Decision to Admit Stat Discharge Plan Discharge Items Patient Disposition: Home - Self-Care Reason For Visit: ACUTE PANCREATITIS Discharge Diagnosis: Acute Pancreatitis Activity: Per Instructions section Non-emergency contact: Primary Care Provider and Oncologist Call non-emergency contact if: you have any medication questions, your symptoms worsen, your pain is not controlled and you have a fever Follow-up/Referrals: Alex Durand M.D. [Primary Care Provider] - Diet: Low Fiber and Low Fat Addtl Attending Provider Instructions: You were admitted to [facility] on 09/23/2020 for acute pancreatitis, which was confirmed via CT scan of your abdomen as well as a high blood level of lipase (a pancreatic enzyme). You also had a procedure called an MRCP done to image the biliary tree, which was normal. Based on the fact that you had your gallbladder out, you do not drink alcohol, you do not have high levels of fat in your blood, and you did not have any recent dietary changes, some of the most common causes of pancreatitis were ruled out. Given that your acute-onset abdominal pain started after initiating your new chemotherapy, it was determined that your pancreatitis is most likely related to one of your chemotherapy medications. Your Oncologist is aware of this hospitalization and will adjust your chemotherapy medications as necessary to help avoid further episodes of pancreatitis. While in the hospital, you were started on IV fluids and given IV pain medications (Dilaudid) as needed to help with the pancreatitis. You were also placed on bowel rest and were limited to a liquid diet, in order to help your pancreatitis heal. Your symptoms improved over the course of several days and your diet was eventually advanced to a low-fat, low-fiber diet on 09/27. Your pain was well-controlled Additionally, the imaging that was done during this hospitalization also revealed a right lung mass as well as a chronic, unchanged mass in the left kidney. We recommend that you speak with your Oncologist about these findings so they can determine the need for further evaluation. We will send the notes from your discharge summary to your Oncologist as well. You should continue to take all of your home medications as prescribed. You can also take Tylenol for the pain associated with pancreatitis. You should try to maintain a low-fat diet until your pain is completely resolved. We hope you feel better, and it was a pleasure to provide care for you during your hospital stay. Pending Studies at Discharge: No Stand-Alone Forms: My [facility], Smoking Cessation Medications and DC Order Prescriptions: Continued levothyroxine [Synthroid] 50 mcg tablet 50 mcg PO QAM RF: 0 Botox 100 unit Recon Soln 1 unit IM UD RF: 0 acetaminophen [Tylenol Extra Strength] 500 mg Tablet 1,000 mg PO Q6H PRN (Reason: Pain) RF: 0 ibuprofen [Advil] 200 mg Tablet 600 mg PO Q6H PRN (Reason: Pain) RF: 0 dexamethasone 4 mg tablet 4 mg PO BID PRN (Reason: for 2 days after chemo) RF: 0 prochlorperazine maleate 10 mg tablet 10 mg PO QID PRN (Reason: Nausea And Vomiting) RF: 0 ondansetron 4 mg tablet,disintegrating 4 mg PO Q12 PRN (Reason: nausea and vomiting) RF: 0 Discharge Orders: Discharge Order (Routine); Ordered 09/27/20 Ordered By: Karl Guadarrama Admission Data Admit Date/Time: 09/23/20 04:00 Attending Provider: Edward Geller Admit Provider: Nataly Lujan Primary Care Provider: Alex Durand Other Providers: Guanaco Price ; Junito Phillip Other Interventions: Discharge Summary Assessment (RN) Last Done: 09/27/20 16:05 Supervising Attestation Attending attestation Pt seen and examined in concert with Std. Dr. Naranjo, Dr. Guadarrama. In agreement with the documented findings as noted in the resident documentation with any exceptions or additions as noted here. Considerable improvement in pain (nothing for 8+ hours) and tolerating full diet (fish and potatoes) with minimal exacerbation of pain. Tolerating liquids. On examination, S1/S2 nl RRR no MCG. CTAB. Abd ND, mild epigastric TTP Pancreatitis, acute - reviewed hydration, pain management protocols. Avoid NSAIDs, APAP OK. f/u with PCP and [facility] oncology for revision of chemotherapy at their recommendation. Transaminitis - likely 2/2 pancreatic inflammation, would repeat CMP at follow up Else see student/resident documentation as noted. Total attending time spent with the patient's case on day of discharge: 35 minutes.
--- NOTE | 2020-09-27 17:42 | Med Student Discharge Summary ---
Date of Service September 27, 2020 Admission HPI Per Admitting Provider Mrs. Turk is a 49 yo woman who presented to the ED for evaluation of epigastric pain that began on the evening of 09/22/20. She denies any associated nausea/vomiting, diarrhea, or urinary symptoms. 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 oncology. She had a chemo port placed on 09/14/20 at [facility]; she then underwent her first chemo treatment on 09/19/20 which consists of Carboplatin and Abraxane. This regimen was specifically chosen due to her PMHx of Hodgkin lymphoma (d iagnosed in her 20s). She had a nuclear bone scan here at [facility] on 09/18/20, which showed no evidence of metastatic disease. She also had a cat scan of the chest on 09/18/20, which showed a 2.5 cm lobular left breast mass (demarcated by a clip); enlarged left axillary nodes which did not meet criteria for pathologic involvement, and a 7mm subpleural spiculated nodule, up from 5mm at previous scan. In the two days after her chemo infusion, Mrs. Turk was directed to take Dexamethasone, 4mg, PO, BID. She has no history of previous pancreatitis. She denies any ETOH use. She has already had her gallbladder removed. TG from 05/2020 were mildly elevated at 182. Surg hx: cholecystectomy, section In the ED, se was afebrile, HR 74, BP 124/76, breathing well on RA. Her WBC mildly elevated to 13 with neurophil predominance. Hgb normal. Ca normal at 8.8. Cr normal. Lipase elevated to 4301. AST 15. ALT 53. Alk phos 72. CT of a/p showed mild peripancreatic fat stranding; no discrete fluid collection. Normal appendix; fatty liver, L renal lesion, thought to be a hemorrhagic cyst (STADrad). Patient was given 1 liter of normal saline, 2mg IV Dilaudid, 4mg Zofran, 15mg Toradol. Admission Exam (Per Admitting) Constitutional Constitutional: WD/WN, vitals as above + acute distress (secondary to pain) and cooperative Eyes: + anicteric sclerae ENMT: external ear and nose normal, oropharynx normal Neck: normal visual inspection and trachea midline Respiratory: normal respiratory effort, lungs clear to auscultation Auscultation: no crackles, no rales and no wheezes Cardiovascular: RRR, no murmur, no edema Heart Sounds: normal S1 and normal S2 Extremities: no pedal edema Chest (Breasts): Chest: + vascular access device or port (chemo port) Gastrointestinal (Abdomen): Inspection/Auscultation: abdomen normal to inspection Percussion/Palpation: + abdomen tender (epigastrium, RLQ, suprapubic region) and abdomen soft; no ascites Skin: no rashes, warm and dry Psychiatric: A+Ox3, euthymic affect Discharge Data Consultations 09/23/20 03:52 ED Decision to Admit Stat Hospital Course (1) Acute pancreatitis: Ms. Turk is a 49-year-old female w/ a pmhx of recently diagnosed breast cancer, remote history of Hodgkin's Lymphoma, cholecystectomy (approx 20 years ago), hypothyroidism, and anxiety who presented on 09/23/2020 with a cc of epigastric abdominal pain found to have acute pancreatitis. #Acute pancreatitis - Epigastric pain radiating to back, elevated lipase and abd CT confirmed dx - MRCP on 09/24 was negative for biliary tree abnormalities - Pt started Carboplatin, Abraxane (Paclitaxel), and Dexamethesone for breast cancer 3 days prior to sx - Suspect secondary to chemotherapy vs. idiopathic cause - Pain improved with fluids and pain meds (Dilaudid and Tylenol) - Pt counseled about continuing hydration and pain control at home - Pt. to follow up with [facility] Oncology about adjusting chemotherapy regimen # Elevated transaminases, resolving - Discussed with GI who agree this is, most likely hepatic inflammation 2/2 pancreatitis - Obtain repeat labs as outpatient #Lung nodule - Growing nodule in R lower lobe detected on CT scan (09/18) compared to 06/15 - Concerning for metastatic breast cancer - [facility] Heme/Onc will continue to f/u - Recommend [address] follow-up #Renal mass - 09/23 showed heterogeneous enhancement of both kidneys and left sided nephrolithiasis - Pt. remains asx, chronic finding based on previous CTs - Outpatient follow up as needed (2) Lung field abnormal finding on examination: (3) Renal mass: (4) Lung nodule: (5) Fatty liver: (6) Hypothyroid: (7) Breast cancer: (8) Acute pancreatitis: Discharge Plan Discharge Items Patient Disposition: Home - Self-Care Reason For Visit: ACUTE PANCREATITIS Discharge Diagnosis: Acute Pancreatitis Activity: Per Instructions section Non-emergency contact: Primary Care Provider and Oncologist Call non-emergency contact if: you have any medication questions, your symptoms worsen, your pain is not controlled and you have a fever Follow-up/Referrals: Alex Durand M.D. [Primary Care Provider] - Diet: Low Fiber and Low Fat Addtl Attending Provider Instructions: You were admitted to [facility] on 09/23/2020 for acute pancreatitis, which was confirmed via CT scan of your abdomen as well as a high blood level of lipase (a pancreatic enzyme). You also had a procedure called an MRCP done to image the biliary tree, which was normal. Based on the fact that you had your gallbladder out, you do not drink alcohol, you do not have high levels of fat in your blood, and you did not have any recent dietary changes, some of the most common causes of pancreatitis were ruled out. Given that your acute-onset abdominal pain started after initiating your new chemotherapy, it was determined that your pancreatitis is most likely related to one of your chemotherapy medications. Your Oncologist is aware of this hospitalization and will adjust your chemotherapy medications as necessary to help avoid further episodes of pancreatitis. While in the hospital, you were started on IV fluids and given IV pain medications (Dilaudid) as needed to help with the pancreatitis. You were also placed on bowel rest and were limited to a liquid diet, in order to help your pancreatitis heal. Your symptoms improved over the course of several days and your diet was eventually advanced to a low-fat, low-fiber diet on 09/27. Your pain was well-controlled Additionally, the imaging that was done during this hospitalization also revealed a right lung mass as well as a chronic, unchanged mass in the left kidney. We recommend that you speak with your Oncologist about these findings so they can determine the need for further evaluation. We will send the notes from your discharge summary to your Oncologist as well. You should continue to take all of your home medications as prescribed. You can also take Tylenol for the pain associated with pancreatitis. You should try to maintain a low-fat diet until your pain is completely resolved. We hope you feel better, and it was a pleasure to provide care for you during your hospital stay. Pending Studies at Discharge: No Stand-Alone Forms: [facility], Smoking Cessation Medications and DC Order Prescriptions: Continued levothyroxine [Synthroid] 50 mcg tablet 50 mcg PO QAM RF: 0 Botox 100 unit Recon Soln 1 unit IM UD RF: 0 acetaminophen [Tylenol Extra Strength] 500 mg Tablet 1,000 mg PO Q6H PRN (Reason: Pain) RF: 0 ibuprofen [Advil] 200 mg Tablet 600 mg PO Q6H PRN (Reason: Pain) RF: 0 dexamethasone 4 mg tablet 4 mg PO BID PRN (Reason: for 2 days after chemo) RF: 0 prochlorperazine maleate 10 mg tablet 10 mg PO QID PRN (Reason: Nausea And Vomiting) RF: 0 ondansetron 4 mg tablet,disintegrating 4 mg PO Q12 PRN (Reason: nausea and vomiting) RF: 0 Discharge Orders: Discharge Order (Routine); Ordered 09/27/20 Ordered By: Karl Guadarrama Admission Data Admit Date/Time: 09/23/20 04:00 Attending Provider: Edward Geller Admit Provider: Nataly Lujan Primary Care Provider: Alex Durand Other Providers: Guanaco Price ; Junito Phillip Resident Activity Tracking Resident Involvement: Resident Care Provided Care Provided: Adult Hospital Medicine
== END 2020-09-27 16:52 | disposition home or self-care (01) | DRG 439 ==
LOC: ED 00:44 → 3N 04:00 → SUATTDRO 04:00 → 3N 04:46

== ENCOUNTER 2022-10-10 10:15 | Inpatient (IN) ==
[2022-10-10] MEDS ORDERED: SODIUM CHLORIDE 0.9% 1000ML 1,000 ML IV ONE (10:46)
[2022-10-10] MEDS ORDERED: MoRPHine SULFATE 10 MG/ML CARP/VIAL IV STA ×2 (10:46→12:52)
[2022-10-10] MEDS ORDERED: ONDANSETRON INJ 2 MG/ML 2 ML VIAL IV STA ×2 (10:46→16:14)
[2022-10-10 11:07] LABS: Appearance Urine Clear (Clear); Bacteria Urine Automated Negative (Negative); Bilirubin Urine Negative (Negative); Blood Urine Negative (Negative); Cast Urine Automated 0 /lpf (0-5); Color Urine Yellow; Glucose Urine UA Negative (Negative); Ketones Urine Negative (Negative); Leukocyte Esterase Urine 1+ (Negative); Nitrite Urine Negative (Negative); Protein Urine Negative (Negative); RBC Urine Automated 0-4 /hpf (0-4); Urobilinogen Urine Negative (Negative)
[2022-10-10] MEDS ORDERED: GI COCKTAIL ED USE PO ONE (12:36)
[2022-10-10 12:58] LABS: Basophils # (auto) 0.05 K/uL (0-0.2); Basophils % (auto) 0.6 %; Eosinophils # (auto) 0.07 K/uL (0-0.50); Eosinophils % (auto) 0.8 %; Hematocrit (blood only) 40.4 % (37.0-47.0); Hemoglobin 13.7 g/dl (12.0-16.0); Immature Granulocytes # (auto) 0.02 K/uL (0.01-0.20); Immature Granulocytes % (auto) 0.2 %; Lymphocytes # (auto) 1.89 K/uL (1.2-3.4); Lymphocytes % (auto) 21.2 %; Mean Corpuscular Hgb Conc 33.9 g/dL (32.0-36.0); Mean Corpuscular Volume 91.4 fL (80.0-100.0); Mean Platelet Volume 9.8 fL (9.4-12.4); Monocytes # (auto) 0.67 K/uL (0.11-0.59); Monocytes % (auto) 7.5 %; Neutrophils # (auto) 6.22 K/uL (1.40-6.50); Neutrophils % (auto) 69.7 %; Platelet Count 299 K/uL (130-400); RDW Coefficient of Variation 13.4 % (11.5-14.5); RDW Standard Deviation 44.8 fL (36.4-46.3); Red Blood Count 4.42 M/uL (4.20-5.40); White Blood Count 8.92 K/ul (4.8-10.8)
[2022-10-10] MEDS ORDERED: METOCLOPRAMIDE HCL INJ 5 MG/ML 2 ML VIAL IV STA (13:06)
[2022-10-10 13:07] LABS: Albumin Globulin Ratio 1.3 (0.9-2); Albumin Level 4.7 gm/dl (3.4-5.0); BUN Creatinine Ratio 11.8 (10-20); Bilirubin,Total 0.6 mg/dl (0.2-1.0); Calcium 10.9 mg/dl (8.5-10.1); Creatinine Clr Calc Pharmacy 75.1 ml/min; Est GFR (Non-African American) 79.3 ml/min; Globulin 3.7 gm/dl (2.5-4.0); Potassium 3.9 mmol/L (3.5-5.1); Total Protein 8.4 gm/dl (6.0-8.3)
[2022-10-10] MEDS ORDERED: OPTIRAY 350 100ml IV ONE (13:21)
--- NOTE | 2022-10-10 13:47 | CT Scan Report ---
CT OF THE ABDOMEN AND PELVIS WITH CONTRAST CLINICAL HISTORY: Worsening left lower quadrant pain. COMPARISON STUDY: CT of the abdomen and pelvis October 06, 1999 2300 TRAVERSE October 2022. TECHNIQUE: Following IV administration of 87 mL of Optiray, axial images of the abdomen and pelvis we re obtained from the lung bases to the proximal femurs. Images were reviewed in the axial, sagittal, and coronal planes. IV contrast was administered without complication. Automated exposure control wa s utilized for the study. A dose lowering technique was utilized adhering to the principles of ALARA . CT DOSE: 399.19 mGy.cm FINDINGS: Elevation of the left hemidiaphragm is again noted. Dense vascular calcification remains un changed from earlier exams. 1 cm subpleural right lower lobe nodule is again noted. This remains inde terminate. No pneumatosis, free air or portal venous gas is present. There is hepatic steatosis. No s ignificant biliary ductal dilatation is noted status post cholecystectomy. Bilateral renal calculi me asure up to 4 mm. There are no ureteral calculi and there is no hydronephrosis. A 2 cm left renal les ion was shown to represent a cyst on prior ultrasound. 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 There is no evidence for a bowel obstruction. The appendix is normal. An inf lamed diverticulum of the distal descending colon is noted. Moderate associated colonic wall thickeni ng and inflammation is noted with associated fluid. Inflammation has increased since CT of October. There is no free air. No associated abscess is present. Trace fluid within pelvis is noted. P ostoperative findings within the anterior abdominal wall are incidentally noted. There are no acute f ractures. No lymphadenopathy is present. IMPRESSION: 1. Progression of acute diverticulitis of the distal descending colon. Increase in associated inflamm ation since CT of October 06, 2022. No free air. No abscess. 2. No bowel obstruction. 3. Bilateral nephrolithiasis. No ureteral calculi or hydronephrosis. ACT 112: Negative or not required by law. Electronically signed by: Olayinka Silva M.D. 10/10/2022 1:46 PM
[2022-10-10] MEDS ORDERED: PIPERACILLIN/TAZOBACTAM 4.5 GM/120 ML BAG IV ONE (13:50)
--- NOTE | 2022-10-10 14:54 | Emergency Department Note ---
Impression & Plan Diverticulitis, Abdominal pain, Vomiting ED Provider Note NAME: DOTTY HESTER AGE: 51 SEX: F : 1970 ARRIVES VIA: Walk-In INFORMANT: Patient ED PROVIDER(S): Jaren Parra DO CHIEF COMPLAINT: abdominal pain HPI: Patient is a 51-year-old female with a past medical history of cholecystectomy, tubal as well as fatty liver and hydronephrosis who presents to the ER for abdominal pain associate with nausea vomiting and bloating. Symptoms started on Thursday and she was seen evaluated on Thursday and treated initially with Cipro and Flomax as her concern for kidney stone. This was switched to Cipro and Flagyl on Thursday following the CT. She notes that the pain has slightly worsened and has not improved in any way. She is feeling sick to her stomach. She does have some epigastric abdominal pain. She was referred in by her PCP for further evaluation. PAST MEDICAL HISTORY:See Below PAST SURGICAL HISTORY:See Below FAMILY HISTORY:See Below SOCIAL HISTORY:See Below HOME MEDICATIONS:See Below ALLERGIES:See Below VITALS:See Below PHYSICAL EXAMINATION: GENERAL: Sitting up in bed, alert, disheveled, mild distress holding abdomen EYE EXAM: normal conjunctiva. OROPHARYNX: mucous membranes are dry NECK: supple, no nuchal rigidity, no adenopathy, non-tender LUNGS: Clear to auscultation. Normal chest wall mechanics HEART: no murmurs, S1 normal and S2 normal ABDOMEN: abdomen soft, diffusely tender to palpation worse in the lower abdomen, normo-active bowel sounds, no masses, no rebound or guarding. UPPER EXTREMITIES: upper extremities are grossly normal. LOWER EXTREMITIES: No pitting edema. NEURO EXAM: Normal sensorium, cranial nerves II-XII grossly intact, normal speech, no gross weakness of arms, no gross weakness of legs. MEDICAL DECISION MAKING: Patient is a 51-year-old female who presents the ER for abdominal pain with known diverticulitis which is not improving. IV was established blood was obtained. Labs show no significant leukocytosis or anemia. BMP with calcium mildly elevated 10.9. Bilirubin was normal. Lipase was normal. UA was contaminated. COVID-negative. CT abdomen pelvis shows worsening diverticulitis. Patient was given IV Zosyn as well as Zofran and morphine and fluids. She was updated at bedside. She did complain chest pain and on evaluation she has epigastric abdominal pain which is reproducible on exam. She has no chest pain or shortness of breath. No arm or jaw pain. EKG was unremarkable. She was updated bedside discussed with Kurt Howard for further evaluation and failure of outpatient treatment with worsening symptoms while on Cipro and Flagyl. External records were reviewed. Triage Nursing notes reviewed. Limited review of prior medical records performed Vital Signs: reviewed and remarkable for no significant abnormalities Differential diagnosis: Differential diagnoses includes but is not limited to gastritis, peptic ulcer disease, GERD, gallbladder disease, pancreatitis, small bowel obstruction, appendicitis, diverticulitis, hernia, urinary tract infection, torsion, perforation, trauma, infectious. ER treatment provided: See below Diagnostics interpreted by me include EKG and cardiac monitoring as listed below: -Cardiac Monitoring: An order was placed for continuous cardiac monitoring. The monitor shows a rate of 80 with sinus rhythm. -ECG: Sinus rhythm rate 82 Normal axis No PVCs QTc 472 -Laboratory studies:Interpreted by me as stated above in MDM and shown below. Imaging studies: Xrays: As interpreted by me:none CTs show: CT abdomen pelvis per my read shows no obstruction. CT abdomen pelvis shows worsening diverticulitis Consultation(s): Discussed with Dr. Kurt Howard for further evaluation treatment and management of worsening diverticulitis Procedures:none Critical Care: None Past Med/Surg History Medical History History of blood clots History of kidney stones Hodgkin disease Hx of pancreatitis HX: breast cancer Hypothyroidism Migraine Surgical History Family history of reaction to anesthesia H/O bilateral mastectomy H/O breast reconstruction H/O tubal ligation History of 3 sections History of anesthesia reaction History of colonoscopy History of esophagogastroduodenoscopy (EGD) History of lithotripsy History of lung biopsy History of tonsillectomy History of vascular access device History of wisdom tooth extraction Hx of bilateral breast reduction surgery Hx of cholecystectomy PONV (postoperative nausea and vomiting) Family History Mother Breast cancer Father Colorectal cancer Grandmother (Maternal) Breast cancer Uterine cancer Other No family history of bleeding disorder Social History Smoking Status: Never smoker Second Hand Exposure: No; Hx Alcohol Use: No Hx Substance Use: No Preferred Language: Yoruba Communication Ability: Effective Visual Impairment: No Limitations Hearing Ability: Normal Brick Setter Required: No Beliefs That Will Affect Care: None marital status: Current Living Situation: Spouse current occupational status: employed current occupation: ecommerce analyst @ [employer] Feels Safe at Home: Yes Assistive Devices: Glasses Allergies Allergies Allergy/AdvReac Type Severity Reaction Status Date / Time codeine Allergy Severe TACHYCARDIA, Verified 08/28/22 08:17 CHEST PAIN Home Meds Home Medications Medication Instructions Recorded Confirmed biotin 10 mg tablet 10 mg PO QAM 07/17/21 08/28/22 multivitamin 1 tab PO QAM 07/17/21 08/28/22 Results & Data (ED) Vital Signs Vital Signs - 24 hr 10/10/22 10:18 10/10/22 10:46 10/10/22 11:22 Temperature 36.4 C L Temperature Source Oral Pulse Rate 85 81 Pulse Rate from SpO2 Sensor 81 Respiratory Rate 18 24 Blood Pressure 106/73 Blood Pressure Mean 84 Pulse Oximetry 98 98 99 Oxygen Delivery Method Room Air Room Air Sepsis Recent Fever Within 48 Hours No Sepsis New/Unexplained Change in Mental Status No Sepsis Action Taken by Nursing No Action Required 10/10/22 11:30 10/10/22 12:00 10/10/22 12:06 Temperature Temperature Source Pulse Rate 83 82 Pulse Rate from SpO2 Sensor Respiratory Rate 22 20 Blood Pressure 105/72 Blood Pressure Mean 83 Pulse Oximetry Oxygen Delivery Method Sepsis Recent Fever Within 48 Hours Sepsis New/Unexplained Change in Mental Status Sepsis Action Taken by Nursing 10/10/22 12:06 10/10/22 12:30 10/10/22 12:30 Temperature Temperature Source Pulse Rate 85 86 Pulse Rate from SpO2 Sensor Respiratory Rate 14 14 15 Blood Pressure 100/73 Blood Pressure Mean 82 Pulse Oximetry 99 Oxygen Delivery Method Sepsis Recent Fever Within 48 Hours Sepsis New/Unexplained Change in Mental Status Sepsis Action Taken by Nursing 10/10/22 13:00 10/10/22 13:00 10/10/22 13:30 Temperature Temperature Source Pulse Rate 81 Pulse Rate from SpO2 Sensor Respiratory Rate 20 Blood Pressure 115/71 99/65 L Blood Pressure Mean 85 76 Pulse Oximetry Oxygen Delivery Method Sepsis Recent Fever Within 48 Hours Sepsis New/Unexplained Change in Mental Status Sepsis Action Taken by Nursing 10/10/22 13:30 10/10/22 14:00 10/10/22 14:00 Temperature Temperature Source Pulse Rate 76 75 Pulse Rate from SpO2 Sensor 75 75 Respiratory Rate 15 15 Blood Pressure 99/61 L Blood Pressure Mean 73 Pulse Oximetry 96 95 Oxygen Delivery Method Sepsis Recent Fever Within 48 Hours Sepsis New/Unexplained Change in Mental Status Sepsis Action Taken by Nursing Laboratory Data 10/10/22 12:07 10/10/22 12:07 Lab Results 10/10/22 10/10/22 10/10/22 Range/Units 12:07 12:07 14:00 WBC 8.92 (4.8-10.8) K/ul RBC 4.42 (4.20-5.40) M/uL Hgb 13.7 (12.0-16.0) g/dl Hct 40.4 (37.0-47.0) % MCV 91.4 (80.0-100.0) fL MCH 31.0 (25.0-34.0) pg MCHC 33.9 (32.0-36.0) g/dL RDW Std Deviation 44.8 (36.4-46.3) fL RDW Coeff of Chen 13.4 (11.5-14.5) % Plt Count 299 (130-400) K/uL MPV 9.8 (9.4-12.4) fL Immature Gran % (Auto) 0.2 % Neut % (Auto) 69.7 % Lymph % (Auto) 21.2 % Stanley % (Auto) 7.5 % Eos % (Auto) 0.8 % Baso % (Auto) 0.6 % Neut # (Auto) 6.22 (1.40-6.50) K/uL Lymph # (Auto) 1.89 (1.2-3.4) K/uL Stanley # (Auto) 0.67 H (0.11-0.59) K/uL Eos # (Auto) 0.07 (0-0.50) K/uL Baso # (Auto) 0.05 (0-0.2) K/uL Immature Gran # (Auto) 0.02 (0.01-0.20) K/uL Sodium 139 (136-145) mmol/L Potassium 3.9 (3.5-5.1) mmol/L Chloride 102 (98-107) mmol/L Carbon Dioxide 31 (21-32) mmol/L Anion Gap 6 (3-11) BUN 10 (6-23) mg/dl Creatinine 0.85 (0.6-1.2) mg/dl Est Cr Clr Drug Dosing 75.1 ml/min Est GFR ( Amer) 92.0 ml/min Est GFR (Non-Af Amer) 79.3 ml/min BUN/Creatinine Ratio 11.8 (10-20) Glucose 101 H (70-99(Fasting)) mg/dl Calcium 10.9 H (8.5-10.1) mg/dl Total Bilirubin 0.6 (0.2-1.0) mg/dl AST 31 (13-39) U/L ALT 80 H (7-52) U/L Alkaline Phosphatase 186 H (34-104) U/L Total Protein 8.4 H (6.0-8.3) gm/dl Albumin 4.7 (3.4-5.0) gm/dl Globulin 3.7 (2.5-4.0) gm/dl Albumin/Globulin Ratio 1.3 (0.9-2) Lipase 31 (11-82) U/L Urine Color Urine Appearance (Clear) Urine pH (4.5-7.5) Ur Specific [place] (1.000-1.030) Urine Protein (Negative) Urine Glucose (UA) (Negative) Urine Ketones (Negative) Urine Blood (Negative) Urine Nitrite (Negative) Urine Bilirubin (Negative) Urine Urobilinogen (Negative) Ur Leukocyte Esterase (Negative) Urine WBC (Auto) (0-5) /hpf Urine RBC (Auto) (0-4) /hpf U Hyaline Cast (Auto) (0-5) /lpf U Epithel Cells (Auto) (0-5) /lpf Urine Bacteria (Auto) (Negative) SARS-CoV-2, RNA, NAAT NEGATIVE (NEGATIVE) 10/10/22 Range/Units Unknown WBC (4.8-10.8) K/ul RBC (4.20-5.40) M/uL Hgb (12.0-16.0) g/dl Hct (37.0-47.0) % MCV (80.0-100.0) fL MCH (25.0-34.0) pg MCHC (32.0-36.0) g/dL RDW Std Deviation (36.4-46.3) fL RDW Coeff of Chen (11.5-14.5) % Plt Count (130-400) K/uL MPV (9.4-12.4) fL Immature Gran % (Auto) % Neut % (Auto) % Lymph % (Auto) % Stanley % (Auto) % Eos % (Auto) % Baso % (Auto) % Neut # (Auto) (1.40-6.50) K/uL Lymph # (Auto) (1.2-3.4) K/uL Stanley # (Auto) (0.11-0.59) K/uL Eos # (Auto) (0-0.50) K/uL Baso # (Auto) (0-0.2) K/uL Immature Gran # (Auto) (0.01-0.20) K/uL Sodium (136-145) mmol/L Potassium (3.5-5.1) mmol/L Chloride (98-107) mmol/L Carbon Dioxide (21-32) mmol/L Anion Gap (3-11) BUN (6-23) mg/dl Creatinine (0.6-1.2) mg/dl Est Cr Clr Drug Dosing ml/min Est GFR ( Amer) ml/min Est GFR (Non-Af Amer) ml/min BUN/Creatinine Ratio (10-20) Glucose (70-99(Fasting)) mg/dl Calcium (8.5-10.1) mg/dl Total Bilirubin (0.2-1.0) mg/dl AST (13-39) U/L ALT (7-52) U/L Alkaline Phosphatase (34-104) U/L Total Protein (6.0-8.3) gm/dl Albumin (3.4-5.0) gm/dl Globulin (2.5-4.0) gm/dl Albumin/Globulin Ratio (0.9-2) Lipase (11-82) U/L Urine Color Yellow Urine Appearance Clear (Clear) Urine pH 7.0 (4.5-7.5) Ur Specific [place] 1.010 (1.000-1.030) Urine Protein Negative (Negative) Urine Glucose (UA) Negative (Negative) Urine Ketones Negative (Negative) Urine Blood Negative (Negative) Urine Nitrite Negative (Negative) Urine Bilirubin Negative (Negative) Urine Urobilinogen Negative (Negative) Ur Leukocyte Esterase 1+ H (Negative) Urine WBC (Auto) 1-5 (0-5) /hpf Urine RBC (Auto) 0-4 (0-4) /hpf U Hyaline Cast (Auto) 0 (0-5) /lpf U Epithel Cells (Auto) 10-20 H (0-5) /lpf Urine Bacteria (Auto) Negative (Negative) SARS-CoV-2, RNA, NAAT (NEGATIVE) Administered Medications Discontinued Medications Al Hydrox/Mg Hydrox/Simethicone (Gi Cocktail Ed Use) 1 dose PO ONE ONE Stop: 10/10/22 12:37 Last Admin: 10/10/22 12:44 Dose: 1 dose Documented By: HOA Sodium Chloride (Nss 1000ml) 1,000 mls @ 999 mls/hr IV .Q1H1M ONE Stop: 10/10/22 11:46 Last Infusion: 10/10/22 13:41 Dose: 0 mls/hr Documented By: Admin: 10/10/22 12:02 Dose: 999 mls/hr Documented By: HOA Piperacillin Sod/Tazobactam Sod (Zosyn) 4.5 gm in 120 mls @ 240 mls/hr IV NOW ONE Stop: 10/10/22 14:19 Last Admin: 10/10/22 13:55 Dose: 240 mls/hr Documented By: HOA Ioversol (Optiray 350 100ml) 87 ml IV ONCE ONE Stop: 10/10/22 13:22 Last Admin: 10/10/22 13:22 Dose: 87 ml Documented By: KAITLYNN Metoclopramide HCl (Metoclopramide Hcl Inj 5 Mg/Ml 2 Ml Vial) 10 mg IV NOW STA Stop: 10/10/22 13:07 Last Admin: 10/10/22 13:12 Dose: 10 mg Documented By: HOA Morphine Sulfate (Morphine Sulfate 10 Mg/Ml Carp/Vial) 6 mg IV NOW STA Stop: 10/10/22 10:47 Last Admin: 10/10/22 12:01 Dose: 6 mg Documented By: HOA Morphine Sulfate (Morphine Sulfate 10 Mg/Ml Carp/Vial) 6 mg IV NOW STA Stop: 10/10/22 12:53 Last Admin: 10/10/22 13:12 Dose: 6 mg Documented By: HOA Ondansetron HCl (Ondansetron Inj 2 Mg/Ml 2 Ml Vial) 4 mg IV NOW STA Stop: 10/10/22 10:47 Last Admin: 10/10/22 12:01 Dose: 4 mg Documented By: HOA Imaging Data Radiologist's Impression: Abdomen/Pelvis CT 10/10/22 10:46 CT OF THE ABDOMEN AND PELVIS WITH CONTRAST CLINICAL HISTORY: Worsening left lower quadrant pain. COMPARISON STUDY: CT of the abdomen and pelvis October 06, 1999 2300 TRAVERSE October 2022. TECHNIQUE: Following IV administration of 87 mL of Optiray, axial images of the abdomen and pelvis were obtained from the lung bases to the proximal femurs. Images were reviewed in the axial, sagittal, and coronal planes. IV contrast was administered without complication. Automated exposure control was utilized for the study. A dose lowering technique was utilized adhering to the principles of ALARA. CT DOSE: 399.19 mGy.cm FINDINGS: Elevation of the left hemidiaphragm is again noted. Dense vascular calcification remains unchanged from earlier exams. 1 cm subpleural right lower lobe nodule is again noted. This remains indeterminate. No pneumatosis, free air or portal venous gas is present. There is hepatic steatosis. No significant biliary ductal dilatation is noted status post cholecystectomy. Bilateral renal calculi measure up to 4 mm. There are no ureteral calculi and there is no hydronephrosis. A 2 cm left renal lesion was shown to represent a cyst on prior ultrasound. 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 There is no evidence for a bowel obstruction. The appendix is normal. An inflamed diverticulum of the distal descending colon is noted. Moderate associated colonic wall thickening and inflammation is noted with associated fluid. Inflammation has increased since CT of October 06, 2022. There is no free air. No associated abscess is present. Trace fluid within pelvis is noted. Postoperative findings within the anterior abdominal wall are incidentally noted. There are no acute fractures. No lymphadenopathy is present. IMPRESSION: 1. Progression of acute diverticulitis of the distal descending colon. Increase in associated inflammation since CT of October 06, 2022. No free air. No abscess. 2. No bowel obstruction. 3. Bilateral nephrolithiasis. No ureteral calculi or hydronephrosis. ACT 112: Negative or not required by law. Electronically signed by: Olayinka Silva M.D. 10/10/2022 1:46 PM Discharge Plan Visit Data Chief Complaint: GI Assessment Stated Complaint: ABD PAIN ED Provider: Jaren Parra Discharge Problem: Diverticulitis, Abdominal pain, Vomiting Forms Stand Alone Forms: [facility] Prescriptions Prescriptions: No Action multivitamin Tablet 1 tab PO QAM biotin 10 mg Tablet 10 mg PO QAM Referrals Referrals: Alex Durand M.D. [Primary Care Provider] -
[2022-10-10] MEDS ORDERED: LACTATED RINGER'S 1,000 ML IV ONE (14:55)
--- NOTE | 2022-10-10 15:10 | History & Physical Report ---
Date of Service October 10, 2022 Assessment & Plan (1) Diverticulitis: Plan: Failed outpatient treatment with ciprofloxacin/metronidazole and clear liquids IV Zosyn NPO, IV maintenance fluids - suggest very slow advancement in diet due to failed optimal outpatient treatment Antinausea medications with ondansetron first-line, Phenergan second line Pain medications with acetaminophen first-line, Dilaudid second line Follow-up colonoscopy 4 to 6 weeks after discharge (2) Chronic migraine: Plan: Acetaminophen +/- Phenergan (3) Gastritis: Plan: Possible diagnosis with epigastric pain during ER visit with GI cocktail improvement in symptoms Famotidine 20 mg IV now Pantoprazole 40 mg IV now then daily Plan VTE Prophylaxis - Lovenox 40mg SQ daily (increased risk due to history of cancers and prior clot although this was around a central line) Diet - NPO Disposition - admit to med/surg Admission and Anticipated Discharge Date Admission Date: October 10, 2022 History of Present Illness Chief Complaint: Groin and back pain Primary Care Provider: Alex Durand M.D. Ashley Turk is a 51-year-old female who presents to the ER with abdominal pain. Her initial symptoms started Thursday night (6 days ago) with left lower quadrant pain. She has a history of kidney stones and although this felt different as more anteriorly she initially thought this was the diagnosis. She went to see a PCP on Thursday (4 days ago) who ordered CT abdomen pelvis. She was initially prescribed ciprofloxacin and tamsulosin due to suspected kidney stone however when results of the CT showed diverticulitis the following day she was taken off tamsulosin and started on metronidazole. Although she was not told to change her diet she read about the diagnosis online and started on clear liquids with the occasional toast. She did not feel any significant improvement and abdominal pain was slightly getting worse therefore she called her PCP who advised her to go to the ER. She denies any diarrhea, constipation, vomiting, melena or bright red blood in stool. She is currently having nausea after pain medication given in the emergency room. She has no history of diverticulitis. Last colonoscopy in [address] Chávez. Diverticulosis was noted on colonoscopy but otherwise was unremarkable and recommended 5-year follow-up due to family history of colon cancer. In the emergency room CT abdomen pelvis was concerning for progression of acute diverticulitis with increasing associated inflammation however white blood count has improved from 13.83-8.92 today. Given her worsening symptoms and imaging she is referred to medicine for admission and ongoing management of worsening diverticulitis. Allergies Allergy/AdvReac Type Severity Reaction Status Date / Time codeine Allergy Severe TACHYCARDIA, Verified 10/10/22 15:26 CHEST PAIN Home Medications Medication Instructions Recorded Confirmed Type biotin 10 mg tablet 10 mg PO QAM 07/17/21 10/10/22 History multivitamin 1 tab PO QAM 07/17/21 10/10/22 History ciprofloxacin HCl 500 mg tablet 500 mg PO Q12 10/10/22 10/10/22 History metronidazole 500 mg tablet 500 mg PO Q8 10/10/22 10/10/22 History tamsulosin 0.4 mg capsule 0.4 mg PO HS 10/10/22 10/10/22 History Past Med/Surg History Medical History (Updated 10/10/22 @ 23:20 by Kurt Howard MD) History of blood clots CLOT FORMED AT A-PORT SIDE>DECEMBER 2020 (WAS ON BLOOD THINNER FOR 1 MONTH) A-PORT REMOVED History of kidney stones Hodgkin disease HX OF, HX CHEMO Hx of pancreatitis HX: breast cancer CHEMO 08/2020>12/2020 THEN SURGERY Hypothyroid Hypothyroidism Migraine Surgical History Family history of reaction to anesthesia mother nausea H/O bilateral mastectomy WITH RECONSTRUCTION H/O breast reconstruction H/O tubal ligation History of 3 sections 1995, 1997, 2002 History of anesthesia reaction REPORTS HX CHEMO BLEOMYCIN (?SPELLING/PT NOT SURE) - WAS TOLD THAT IF HAVING ANESTHESIA TO NOTIFY OF BLEOMYCIN HX AND OXYGEN TOXICITY (PT REPORTS HAS NEVER HAD PROBLEM WITH) History of colonoscopy History of esophagogastroduodenoscopy (EGD) History of lithotripsy History of lung biopsy History of tonsillectomy History of vascular access device A-PORT INSERTION AND REMOVAL History of wisdom tooth extraction Hx of bilateral breast reduction surgery Hx of cholecystectomy PONV (postoperative nausea and vomiting) NAUSEA ONLY Family History Mother Breast cancer Father Colorectal cancer Grandmother (Maternal) Breast cancer Uterine cancer Other No family history of bleeding disorder Social History Smoking Status: Never smoker Second Hand Exposure: No; Hx Alcohol Use: No Hx Substance Use: No Preferred Language: [place]ican Communication Ability: Effective Visual Impairment: No Limitations Hearing Ability: Normal Material Damage Adjuster Required: No Beliefs That Will Affect Care: None marital status: Current Living Situation: Spouse current occupational status: employed current occupation: business information analyst @ [employer] Feels Safe at Home: Yes Assistive Devices: Glasses Review of Systems Review of Systems: All systems reviewed & are unremarkable except as noted in HPI & below Physical Exam Constitutional: WD/WN, vitals as above ENMT: external ear and nose normal, oropharynx normal Neck: trachea midline, no thyromegaly Respiratory: normal respiratory effort, lungs clear to auscultation Cardiovascular: RRR, no murmur, no edema Gastrointestinal (Abdomen): Percussion/Palpation: + abdomen tender (LLQ) and abdomen soft; no guarding and abdomen not rigid Musculoskeletal: no cyanosis or clubbing, extremities motor strength 5/5 Skin: no rashes, warm and dry Neurologic: moves all extremities and awake; not confused Psychiatric: A+Ox3, euthymic affect Results & Data Results & Data ([facility]) Vital Signs (Past 12 Hours) Vital Signs Temp Pulse Resp BP Pulse Ox O2 Del Method 10/10/22 14:00 75 15 95 10/10/22 14:00 99/61 L 10/10/22 13:30 76 15 96 10/10/22 13:30 99/65 L 10/10/22 13:00 81 20 10/10/22 13:00 115/71 10/10/22 12:30 15 10/10/22 12:30 86 14 100/73 99 10/10/22 12:06 85 14 10/10/22 12:06 105/72 10/10/22 12:00 82 20 10/10/22 11:30 83 22 10/10/22 11:22 81 24 99 10/10/22 10:46 98 Room Air 10/10/22 10:18 36.4 C L 85 18 106/73 98 Room Air Laboratory Results Abnormal lab results 10/10/22 10/10/22 10/10/22 Range/Units 12:07 12:07 Unknown [place] # (Auto) 0.67 H (0.11-0.59) K/uL Glucose 101 H (70-99(Fasting)) mg/dl Calcium 10.9 H (8.5-10.1) mg/dl ALT 80 H (7-52) U/L Alkaline Phosphatase 186 H (34-104) U/L Total Protein 8.4 H (6.0-8.3) gm/dl Ur Leukocyte Esterase 1+ H (Negative) U Epithel Cells (Auto) 10-20 H (0-5) /lpf Diagnostic Findings CT OF THE ABDOMEN AND PELVIS WITH CONTRAST CLINICAL HISTORY: Worsening left lower quadrant pain. COMPARISON STUDY: CT of the abdomen and pelvis October 06, 1999 2300 TRAVERSE October 2022. TECHNIQUE: Following IV administration of 87 mL of Optiray, axial images of the abdomen and pelvis were obtained from the lung bases to the proximal femurs. Images were reviewed in the axial, sagittal, and coronal planes. IV contrast was administered without complication. Automated exposure control was utilized for the study. A dose lowering technique was utilized adhering to the principles of ALARA. CT DOSE: 399.19 mGy.cm FINDINGS: Elevation of the left hemidiaphragm is again noted. Dense vascular calcification remains unchanged from earlier exams. 1 cm subpleural right lower lobe nodule is again noted. This remains indeterminate. No pneumatosis, free air or portal venous gas is present. There is hepatic steatosis. No significant biliary ductal dilatation is noted status post cholecystectomy. Bilateral renal calculi measure up to 4 mm. There are no ureteral calculi and there is no hydronephrosis. A 2 cm left renal lesion was shown to represent a cyst on prior ultrasound. 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 There is no evidence for a bowel obstruction. The appendix is normal. An inflamed diverticulum of the distal descending colon is noted. Moderate associated colonic wall thickening and inflammation is noted with associated fluid. Inflammation has increased since CT of October 06, 2022. There is no free air. No associated abscess is present. Trace fluid within pelvis is noted. Po stoperative findings within the anterior abdominal wall are incidentally noted. There are no acute fractures. No lymphadenopathy is present. IMPRESSION: 1. Progression of acute diverticulitis of the distal descending colon. Increase in associated inflammation since CT of October 06, 2022. No free air. No abscess. 2. No bowel obstruction. 3. Bilateral nephrolithiasis. No ureteral calculi or hydronephrosis. Medications Administered ER medications given: Normal saline 1 L bolus Morphine 6 mg IV Ondansetron 4 mg IV GI cocktail Morphine 6 mg IV Metoclopramide 10 mg IV Zosyn 4.5 g IV ECG Indication: abdominal pain Rate (beats per minute): 82 Rhythm: normal sinus Findings: no acute ischemic change Comparison ECG Date: from (October 26, 2019) Change: no significant change Code Status & VTE Plan Code Status Full VTE Prophylaxis Plan VTE Prophylaxis will be ordered: Yes PG Care Time/CCT Total # of Minutes Spent Total Time Spent with Patient: Total time spent is greater than 50% in coordination of care (as documented) at patient's floor/unit and/or counseling patient: Coding Level of Care Code 90883 INT INP/OBS CARE MIN Diagnoses Diverticulitis K57.92 Chronic migraine G43.709 Gastritis K29.70
[2022-10-10] MEDS ORDERED: PANTOprazole 40 MG in SYRINGE 0 ML IV STA (16:11)
[2022-10-10] MEDS ORDERED: FAMOTIDINE 20 MG in SYRINGE 3 ML IV STA (16:14)
[2022-10-10] MEDS ORDERED: FAMOTIDINE 20MG IV PUSH 20 MG/5 ML SYR IV STA (16:17)
[2022-10-10] MEDS ORDERED: ONDANSETRON INJ 2 MG/ML 2 ML VIAL IV PRN ×2 (17:13→18:18)
[2022-10-10] MEDS ORDERED: MoRPHine SULFATE 4 MG/ML 1 ML CARP\\VIAL IV PRN (17:13)
--- NOTE | 2022-10-10 17:30 | Electrocardiogram Report ---
Test Reason : Blood Pressure : / mmHG Vent. Rate : 082 BPM Atrial Rate : 082 BPM P-R Int : 148 ms QRS Dur : 086 ms QT Int : 404 ms P-R-T Axes : 030 004 036 degrees QTc Int : 472 ms Normal sinus rhythm Normal ECG When compared with ECG of 26-OCT-2019 08:17, No significant change was found Confirmed by Efrain Virgen ([id number]) on 10/10/2022 5:30:46 PM Referred By: Alex Durand Confirmed By:Efrain Virgen
[2022-10-10] MEDS: LACTATED RINGER'S 1,000 ML IV SCH (18:04)
[2022-10-10] MEDS: ACETAMINOPHEN 1,000 MG/100 ML VIAL IV PRN (18:08)
[2022-10-10] MEDS ORDERED: PROMETHAZINE HCL 25 MG in SODIUM CHLORIDE 0.9% 50 ML IV PRN (18:14)
[2022-10-10] MEDS ORDERED: HYDROmorphone INJ 0.5 MG/0.5 ML SYR IV PRN (18:18)
[2022-10-10] MEDS: PIPERACILLIN/TAZOBACTAM 3.375 GM in DEXTROSE 5% 100 ML IV SCH (20:13)
[2022-10-10] MEDS: ENOXAPARIN INJ 40 MG/0.4 ML SYR SQ SCH (21:03)
[2022-10-11] MEDS: LACTATED RINGER'S 1,000 ML IV SCH ×3 (03:21→19:33)
[2022-10-11] MEDS: HYDROmorphone INJ 0.5 MG/0.5 ML SYR IV PRN ×2 (03:24→13:35)
[2022-10-11] MEDS: PIPERACILLIN/TAZOBACTAM 3.375 GM in DEXTROSE 5% 100 ML IV SCH ×3 (03:29→18:27)
[2022-10-11] MEDS: ACETAMINOPHEN 1,000 MG/100 ML VIAL IV PRN (07:43)
--- NOTE | 2022-10-11 07:56 | Hospitalist Progress Note ---
Date of Service October 11, 2022 Assessment & Plan (1) Diverticulitis: Plan: Had initially felt to have kidney stone and put on cipro/flomax, then discovered had acute diverticulitis and was placed on cipro/flagyl as outpatient w/ clear liquid diet and then w/ progression of n/v/bloating and presented to ER Imaging w/ progression of acute diverticulitis of the distal descending colon. Increase in associated inflammation since CT of October 06, 2022. No free air. No abscess. No bowel obstruction. B/l nephrolithiasis, no ureteral calculi or hydronephrosis NPO ABx: IV ZOsyn Pain control/antiemetics LR @ 125cc/hr Protonix IVP daily 10/11 Labs added for this morning --> WBC w/o elevation, afebrile. Chemistry stable except LFTs, see below Advancement to clear liquids for this afternoon Continue IVF/supportive care in meantime Measure I&O Will provide patient information on low fiber diet prior to d/c and encourage slow advancement to prevent worsening (was not told about any dietary restrictions w/ diverticulitis but her and did google after she had been on regular food) F/u c-scope outpatient -- has followed w/ Case in the past, family hx colon ca (2) Chronic migraine: Plan: Acetaminophen +/- Phenergan last inpatient stay noted patient w/ improvement in migraine symptoms if occurred w/ benedryl -- ordered if needed In patient w/ hx breast ca, she states has never had brain MRI. is s/p bilateral mastectomy. No worrisome symptoms now but can be f/u outpatient (3) Gastritis: Plan: Possible diagnosis with epigastric pain/chest pain during ER visit with resolution of symptoms after GI cocktail. Trop negative. EKG NSR Given famotidine IV and continues on protonix daily Symptoms stable at present (4) Breast cancer: Plan: From note Aug 2020 in system w/ detection on routine mammo Jul 2020. Core bx ER neg, RI neg, HER2 neg. Breast MRI Jul 2020, chemo port placed Sep 20 and bone scan w/o metastatic involvement. Started chemo at that time through December, and per patient she had underwent b/l mastectomy and is not on any maintenance medications such as anastazole or arimidex Had clot form @ port in December 2020, was on blood thinner x 1 month and port removed Consideration for MRI brain outpatient given hx breast ca/migraines -- can f/u PCP (5) Hypercalcemia: Plan: given hx stones, check vit D to ensure no deficiency given Ca 10.9 on admit. If not low, need to check PTH given hx malignancy (6) LFT elevation: Plan: slightly elevated in ER 10/06 w/ AST 71/ALT 107 LFTs AST 31, ALT 80, ALP 186 on admit Patient is s/p cholecystectomy, TB wnl Does admit occasional wine intake, no excessive Can check TSH w/ AM labs given hx hypothyroidism -- states has been stable for years OFF medication check CK ?if from IV Zosyn, Of note, patient did mention she has methocarbamol at home for headaches -- could contribute as well. She was receiving multiple doses of Morphine in ER, currently switched to Dilaudid for breakthrough pain NO RUQ pain on exam Is on IV tylenol -- will limit to 2gm IV daily. Add ibuprofen/NSAID if needed for pain control Monitor LFTs on repeat, if further elevations on AM labs will need to investigate further/RUQ/labs Plan VTE Prophylaxis - Lovenox 40mg SQ daily (increased risk due to history of cancers and prior clot although this was around a central line) diet advanced to clear liquids for this afternoon monitor status w/ improvement of diet continue abx/IVF/supportive care will need outpt f/u Dr Chávez for c-scope Admission and Anticipated Discharge Date Admission Date: October 10, 2022 Supervising Physician Co-Signing Physician Notes PA Supervision Note: I did not personally see or examine the patient today, but I verified all colon points of JULIANO Maldonado's assessment and plan with the following exceptions/additions: None Subjective seen this morning, feeling better than in the ER. 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 Has only had headache since getting morphine in ER. Improvement w/ IV tylneol and discussed Benadryl as she has used in past and will make available. She states she has taken this as well as 3 ibuprofen or caffeine and had resolution of symptoms. Headache very similar to priors/no worsening or worrisome symptoms. She states she was initially told UTI/kidney stone and sent Cipro/Flomax and was eating cheeseburger and fries on Thursday and then when she had CTAP office called and told her they sent in antibiotics but had not talked with any provider. She states her and her were googling and found that bowel rest and limited diet were best and she does endorse she has had some toast/jello/pudding/chicken broth since that information but then was worsening night and decided to come into the hospital on Thursday. She notes her PCP is in [place] and she had seen the PA. She states she also had GI/chest discomfort that was relieved with GI cocktail in the ER and not having any symptoms currently . Discussed will keep protonix in place. She doesn't want to take pain medications unless she actually needs them. She states she has some cramping to her LLQ but this is improved. When discussed slow advancement of diet she was discouraged initially but did discuss if continues to do well this evening can start some clear liquids and possibly advance to full liquid tomorrow with POSSIBLE chance for low fiber at dinner but really don't want to advance too quickly. Also discussed low fiber x 2 weeks and c-scope outpatient. She does endorse has had one in past w/ Dr Case but wasn't aware of why she would need repeat scope after d/c. No fever/chills. Questions/concerns addressed at this time. Review of Systems Review of Systems: All systems reviewed & are unremarkable except as noted in HPI & below Physical Exam Physical Exam: General: WD/WN female sitting up in bed, having labs drawn, NAD HEENT; head normocephalic, atraumatic, mm slightly dry, pupils equal/reactive Resp: CTAB, no w/c, on room air CV: RRR, no significant m/r/g, no pitting edema/calf tenderness GI: +BS throughout, soft, slightly tender only to DEEP palpation LLQ, no guarding or rigidity MSK/Neuro: no focal deficit, follows commands, no slurred speech/facial droop Psych: AOx3, pleasant and cooperative Results & Data Results & Data ([facility]) Vital Signs (Past 12 Hours) Vital Signs Temp Pulse Resp BP BP Pulse Ox O2 Del Method 10/11/22 07:12 36.4 C L 62 18 115/70 95 Room Air 10/10/22 22:54 36.4 C L 70 18 115/75 96 Room Air Laboratory Results 10/11/22 10/11/22 10/10/22 Range/Units 09:48 09:05 Unknown WBC 4.49 L (4.8-10.8) K/ul RBC 4.28 (4.20-5.40) M/uL Hgb 13.4 (12.0-16.0) g/dl Hct 39.4 (37.0-47.0) % MCV 92.1 (80.0-100.0) fL MCH 31.3 (25.0-34.0) pg MCHC 34.0 (32.0-36.0) g/dL RDW Std Deviation 45.6 (36.4-46.3) fL RDW Coeff of Chen 13.3 (11.5-14.5) % Plt Count 261 (130-400) K/uL MPV 9.6 (9.4-12.4) fL Immature Gran % (Auto) % Neut % (Auto) % Lymph % (Auto) % [place] % (Auto) % Eos % (Auto) % Baso % (Auto) % Neut # (Auto) (1.40-6.50) K/uL Lymph # (Auto) (1.2-3.4) K/uL [place] # (Auto) (0.11-0.59) K/uL Eos # (Auto) (0-0.50) K/uL Baso # (Auto) (0-0.2) K/uL Immature Gran # (Auto) (0.01-0.20) K/uL Sodium 140 (136-145) mmol/L Potassium 4.0 (3.5-5.1) mmol/L Chloride 104 (98-107) mmol/L Carbon Dioxide 30 (21-32) mmol/L Anion Gap 6 (3-11) BUN 8 (6-23) mg/dl Creatinine 0.77 (0.6-1.2) mg/dl Est Cr Clr Drug Dosing 82.9 ml/min Est GFR ( Amer) 103.6 ml/min Est GFR (Non-Af Amer) 89.4 ml/min BUN/Creatinine Ratio 10.4 (10-20) Glucose 87 (70-99(Fasting)) mg/dl Calcium 9.5 (8.5-10.1) mg/dl Total Bilirubin 0.7 (0.2-1.0) mg/dl Direct Bilirubin 0.2 (0-0.2) mg/dl AST 350 H (13-39) U/L ALT 339 H (7-52) U/L Alkaline Phosphatase 403 H D (34-104) U/L Troponin I High Sens (0-14) pg/ml Total Protein 6.4 D (6.0-8.3) gm/dl Albumin 3.6 (3.4-5.0) gm/dl Globulin (2.5-4.0) gm/dl Albumin/Globulin Ratio (0.9-2) Lipase (11-82) U/L Urine Color Yellow Urine Appearance Clear (Clear) Urine pH 7.0 (4.5-7.5) Ur Specific [place] 1.010 (1.000-1.030) Urine Protein Negative (Negative) Urine Glucose (UA) Negative (Negative) Urine Ketones Negative (Negative) Urine Blood Negative (Negative) Urine Nitrite Negative (Negative) Urine Bilirubin Negative (Negative) Urine Urobilinogen Negative (Negative) Ur Leukocyte Esterase 1+ H (Negative) Urine WBC (Auto) 1-5 (0-5) /hpf Urine RBC (Auto) 0-4 (0-4) /hpf U Hyaline Cast (Auto) 0 (0-5) /lpf U Epithel Cells (Auto) 10-20 H (0-5) /lpf Urine Bacteria (Auto) Negative (Negative) SARS-CoV-2, RNA, NAAT (NEGATIVE) 10/10/22 10/10/22 10/10/22 Range/Units 14:00 12:07 12:07 WBC 8.92 (4.8-10.8) K/ul RBC 4.42 (4.20-5.40) M/uL Hgb 13.7 (12.0-16.0) g/dl Hct 40.4 (37.0-47.0) % MCV 91.4 (80.0-100.0) fL MCH 31.0 (25.0-34.0) pg MCHC 33.9 (32.0-36.0) g/dL RDW Std Deviation 44.8 (36.4-46.3) fL RDW Coeff of Chen 13.4 (11.5-14.5) % Plt Count 299 (130-400) K/uL MPV 9.8 (9.4-12.4) fL Immature Gran % (Auto) 0.2 % Neut % (Auto) 69.7 % Lymph % (Auto) 21.2 % [place] % (Auto) 7.5 % Eos % (Auto) 0.8 % Baso % (Auto) 0.6 % Neut # (Auto) 6.22 (1.40-6.50) K/uL Lymph # (Auto) 1.89 (1.2-3.4) K/uL [place] # (Auto) 0.67 H (0.11-0.59) K/uL Eos # (Auto) 0.07 (0-0.50) K/uL Baso # (Auto) 0.05 (0-0.2) K/uL Immature Gran # (Auto) 0.02 (0.01-0.20) K/uL Sodium 139 (136-145) mmol/L Potassium 3.9 (3.5-5.1) mmol/L Chloride 102 (98-107) mmol/L Carbon Dioxide 31 (21-32) mmol/L Anion Gap 6 (3-11) BUN 10 (6-23) mg/dl Creatinine 0.85 (0.6-1.2) mg/dl Est Cr Clr Drug Dosing 75.1 ml/min Est GFR ( Amer) 92.0 ml/min Est GFR (Non-Af Amer) 79.3 ml/min BUN/Creatinine Ratio 11.8 (10-20) Glucose 101 H (70-99(Fasting)) mg/dl Calcium 10.9 H (8.5-10.1) mg/dl Total Bilirubin 0.6 (0.2-1.0) mg/dl Direct Bilirubin (0-0.2) mg/dl AST 31 (13-39) U/L ALT 80 H (7-52) U/L Alkaline Phosphatase 186 H (34-104) U/L Troponin I High Sens 6.0 (0-14) pg/ml Total Protein 8.4 H (6.0-8.3) gm/dl Albumin 4.7 (3.4-5.0) gm/dl Globulin 3.7 (2.5-4.0) gm/dl Albumin/Globulin Ratio 1.3 (0.9-2) Lipase 31 (11-82) U/L Urine Color Urine Appearance (Clear) Urine pH (4.5-7.5) Ur Specific [place] (1.000-1.030) Urine Protein (Negative) Urine Glucose (UA) (Negative) Urine Ketones (Negative) Urine Blood (Negative) Urine Nitrite (Negative) Urine Bilirubin (Negative) Urine Urobilinogen (Negative) Ur Leukocyte Esterase (Negative) Urine WBC (Auto) (0-5) /hpf Urine RBC (Auto) (0-4) /hpf U Hyaline Cast (Auto) (0-5) /lpf U Epithel Cells (Auto) (0-5) /lpf Urine Bacteria (Auto) (Negative) SARS-CoV-2, RNA, NAAT NEGATIVE (NEGATIVE) Diagnostic Findings Abdomen/Pelvis CT 10/10/22 10:46 CT OF THE ABDOMEN AND PELVIS WITH CONTRAST CLINICAL HISTORY: Worsening left lower quadrant pain. COMPARISON STUDY: CT of the abdomen and pelvis October 06, 1999 2300 TRAVERSE October 2022. TECHNIQUE: Following IV administration of 87 mL of Optiray, axial images of the abdomen and pelvis were obtained from the lung bases to the proximal femurs. Images were reviewed in the axial, sagittal, and coronal planes. IV contrast was administered without complication. Automated exposure control was utilized for the study. A dose lowering technique was utilized adhering to the principles of ALARA. CT DOSE: 399.19 mGy.cm FINDINGS: Elevation of the left hemidiaphragm is again noted. Dense vascular calcification remains unchanged from earlier exams. 1 cm subpleural right lower lobe nodule is again noted. This remains indeterminate. No pneumatosis, free air or portal venous gas is present. There is hepatic steatosis. No significant biliary ductal dilatation is noted status post cholecystectomy. Bilateral renal calculi measure up to 4 mm. There are no ureteral calculi and there is no hydronephrosis. A 2 cm left renal lesion was shown to represent a cyst on prior ultrasound. 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 There is no evidence for a bowel obstruction. The appendix is normal. An inflamed diverticulum of the distal descending colon is noted. Moderate associated colonic wall thickening and inflammation is noted with associated fluid. Inflammation has increased since CT of October 06, 2022. There is no free air. No associated abscess is present. Trace fluid within pelvis is noted. Postoperative findings within the anterior abdominal wall are incidentally noted . There are no acute fractures. No lymphadenopathy is present. IMPRESSION: 1. Progression of acute diverticulitis of the distal descending colon. Increase in associated inflammation since CT of October 06, 2022. No free air. No abscess. 2. No bowel obstruction. 3. Bilateral nephrolithiasis. No ureteral calculi or hydronephrosis. ACT 112: Negative or not required by law. Electronically signed by: Olayinka Silva M.D. 10/10/2022 1:46 PM PG Care Time/CCT Total # of Minutes Spent Total Time Spent with Patient: Total time spent is greater than 50% in coordination of care (as documented) at patient's floor/unit and/or counseling patient: Coding Level of Care Code 57765 SUB INP/OBS CARE 350MIN Diagnoses Diverticulitis K57.92 Chronic migraine G43.709 Gastritis K29.70 Breast cancer C50.919 Hypercalcemia E83.52 LFT elevation R79.89
[2022-10-11 10:06] LABS: Hematocrit (blood only) 39.4 % (37.0-47.0); Hemoglobin 13.4 g/dl (12.0-16.0); Mean Corpuscular Hemoglobin 31.3 pg (25.0-34.0); Mean Corpuscular Volume 92.1 fL (80.0-100.0); Mean Platelet Volume 9.6 fL (9.4-12.4); Platelet Count 261 K/uL (130-400); RDW Coefficient of Variation 13.3 % (11.5-14.5); RDW Standard Deviation 45.6 fL (36.4-46.3); Red Blood Count 4.28 M/uL (4.20-5.40); White Blood Count 4.49 K/ul (4.8-10.8)
[2022-10-11] MEDS: diphenhydrAMINE 50 MG/ML VIAL IV PRN (10:18)
[2022-10-11] MEDS: PANTOprazole 40 MG in SYRINGE 0 ML IV SCH (10:19)
[2022-10-11 10:36] LABS: Albumin Level 3.6 gm/dl (3.4-5.0); Bilirubin Direct 0.2 mg/dl (0-0.2); Bilirubin,Total 0.7 mg/dl (0.2-1.0); Calcium 9.5 mg/dl (8.5-10.1)
[2022-10-11 10:55] LABS: BUN Creatinine Ratio 10.4 (10-20); Creatinine Clr Calc Pharmacy 82.9 ml/min; Est GFR (African American) 103.6 ml/min; Est GFR (Non-African American) 89.4 ml/min; Total Protein 6.4 gm/dl (6.0-8.3)
[2022-10-11] MEDS ORDERED: ACETAMINOPHEN 1,000 MG/100 ML VIAL IV PRN (11:09)
[2022-10-11 11:32] LABS: Basophils # (auto) 0.03 K/uL (0-0.2); Basophils % (auto) 0.7 %; Eosinophils # (auto) 0.11 K/uL (0-0.50); Eosinophils % (auto) 2.4 %; Immature Granulocytes # (auto) 0.01 K/uL (0.01-0.20); Immature Granulocytes % (auto) 0.2 %; Lymphocytes # (auto) 1.55 K/uL (1.2-3.4); Lymphocytes % (auto) 34.5 %; Monocytes # (auto) 0.33 K/uL (0.11-0.59); Monocytes % (auto) 7.3 %; Neutrophils # (auto) 2.46 K/uL (1.40-6.50); Neutrophils % (auto) 54.9 %
[2022-10-11] MEDS: ENOXAPARIN INJ 40 MG/0.4 ML SYR SQ SCH (19:34)
[2022-10-12] MEDS: LACTATED RINGER'S 1,000 ML IV SCH ×3 (03:07→19:24)
[2022-10-12] MEDS: PIPERACILLIN/TAZOBACTAM 3.375 GM in DEXTROSE 5% 100 ML IV SCH ×3 (03:07→18:07)
[2022-10-12 08:11] LABS: Hematocrit (blood only) 40.1 % (37.0-47.0); Mean Corpuscular Hemoglobin 31.5 pg (25.0-34.0); Mean Corpuscular Hgb Conc 34.9 g/dL (32.0-36.0); Mean Corpuscular Volume 90.3 fL (80.0-100.0); Platelet Count 268 K/uL (130-400); RDW Coefficient of Variation 13.1 % (11.5-14.5); RDW Standard Deviation 43.1 fL (36.4-46.3); Red Blood Count 4.44 M/uL (4.20-5.40); White Blood Count 5.31 K/ul (4.8-10.8)
--- NOTE | 2022-10-12 08:15 | Hospitalist Progress Note ---
Date of Service October 12, 2022 Assessment & Plan (1) Diverticulitis: Plan: Had initially felt to have kidney stone and put on cipro/flomax, then discovered had acute diverticulitis and was placed on cipro/flagyl as outpatient w/ clear liquid diet (however patient reported to me she did not get education on dietary modifications and initially was eating cheeseburger/fries before looking up on google about limiting her oral intake/bowel rest) Then , had progression of nausea/bloating/pain and presented to ER 2 CTAP w/ progression of acute diverticulitis of the distal descending colon. Increase in associated inflammation since CT of October 06, 2022. No free air. No abscess. No bowel obstruction. B/l nephrolithiasis, no ureteral calculi or hydronephrosis Continue IV Zosyn -- plan augmentin to complete course when able to de-escalate IVF LR decreased to 100cc/hr On clear liquids - not advancing past this given ongoing pain, however not worse. 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 Avoiding decadron (reported gets GI cocktail in ER previously) in setting of active infection In patient w/ hx breast ca, she states has never had brain MRI. is s/p bilateral mastectomy. No worrisome symptoms now but can be f/u outpatient (3) Gastritis: Plan: Possible diagnosis with epigastric pain/chest pain during ER visit with resolution of symptoms after GI cocktail. Trop negative. EKG NSR Given famotidine IV and continues on protonix daily Reporting some upper epigastric discomfort. Lipase wnl and will increase protonix to BID (4) Breast cancer: Plan: From note Aug 2020 in system w/ detection on routine mammo Jul 2020. Core bx ER neg, [place] neg, HER2 neg. Breast MRI Jul 2020, chemo port placed Sep 20 and bone scan w/o metastatic involvement. Started chemo at that time through December, and per patient she had underwent b/l mastectomy and is not on any maintenance medications such as anastazole or arimidex Had clot form @ port in December 2020, was on blood thinner x 1 month and port removed Consideration for MRI brain outpatient given hx breast ca/migraines -- can f/u PCP (5) Hypercalcemia: Plan: given hx stones, check vit D to ensure no deficiency given Ca 10.9 on admit. Vit D 33.8, PTH 30.5 however calcium normalized. Would f/u outpatint and further eval if any elevations when resolved from illness to r/o underlying malignancy does have pulm nodules being monitored of note (6) LFT elevation: Plan: slightly elevated in ER 10/06 w/ AST 71/ALT 107 Slightly worsened on admission to AST 31, ALT 80, ALP 186 but TB was normal Patient is s/p cholecystectomy Does admit occasional wine intake, no excessive TSH wnl 3.2 -- off meds for years in patient w/ prior hx hypothroidism CK wnl ?med related -- methocarbamol at home but hadn't gotten recently. Multiple doses morphine in ER, switched to Dilaudid as needed for breakthrough and decreaed her tylenol to 2gm max daily. Denied RUQ pain on exam but was slightly tender epigastric region. Lipase wnl. Check RUQ for completeness but LFTs are trending down Monitor Plan VTE Prophylaxis - Lovenox 40mg SQ daily (increased risk due to history of cancers and prior clot although this was around a central line) continue clear liquid diet -- slow advancement given outpt failure Check RUQ outpt GI f/u Admission and Anticipated Discharge Date Admission Date: October 10, 2022 Supervising Physician Co-Signing Physician Notes JULIANO Supervision Note: I did not personally see or examine the patient today, but I verified all colon points of JULIANO Maldonado's assessment and plan with the following exceptions/additions: None Subjective patient evaluated this morning, headache (similar to prior, no worst headache ever). states had been in ER in past and got cocktail. Discussed starting w/ dose IV Compazine and will monitor. Would prefer to hold off on decadron given active infection. She notes she did have some diarrhea x 1, unknown if any bleeding but she denied noticing any. She did have several items w/ clear liquids last night, states pain about the same, but slight tenderness LLQ. Also having some upper epigastric discomfort. Discussed not advancing diet past clear liquids and if any worsening pain would need to back down to NPO. No fever/chills, chest pain or shortness of breath. If any worsening abdominal pain/fever/WBC elevation would need to repeat imaging. Physical Exam Physical Exam: General: WD/WN female sitting up in bed,friend at bedside, NAD HEENT; head normocephalic, atraumatic, mm moist, pupils equal/reactive Resp: CTAB, no w/c, on room air CV: RRR, no significant m/r/g, no pitting edema/calf tenderness GI: +BS throughout, soft, slightly tender LLQ, epigastric region, no rebound/guarding MSK/Neuro: no focal deficit, follows commands, no slurred speech/facial droop Psych: AOx3, pleasant and cooperative Results & Data Results & Data ([facility]) Vital Signs (Past 12 Hours) Vital Signs Temp Pulse Resp BP Pulse Ox O2 Del Method 10/12/22 06:56 36.7 C 65 18 134/86 96 Room Air 10/11/22 22:33 36.6 C 62 16 132/86 96 Room Air Laboratory Results 10/12/22 10/12/22 10/12/22 Range/Units 07:38 07:38 07:38 WBC 5.31 (4.8-10.8) K/ul RBC 4.44 (4.20-5.40) M/uL Hgb 14.0 (12.0-16.0) g/dl Hct 40.1 (37.0-47.0) % MCV 90.3 (80.0-100.0) fL MCH 31.5 (25.0-34.0) pg MCHC 34.9 (32.0-36.0) g/dL RDW Std Deviation 43.1 (36.4-46.3) fL RDW Coeff of Chen 13.1 (11.5-14.5) % Plt Count 268 (130-400) K/uL MPV 10.0 (9.4-12.4) fL Immature Gran % (Auto) 1.5 % Neut % (Auto) 59.4 % Lymph % (Auto) 29.2 % Perry % (Auto) 5.8 % Eos % (Auto) 2.8 % Baso % (Auto) 1.3 % Neut # (Auto) 3.15 (1.40-6.50) K/uL Lymph # (Auto) 1.55 (1.2-3.4) K/uL Perry # (Auto) 0.31 (0.11-0.59) K/uL Eos # (Auto) 0.15 (0-0.50) K/uL Baso # (Auto) 0.07 (0-0.2) K/uL Immature Gran # (Auto) 0.08 (0.01-0.20) K/uL Sodium 141 (136-145) mmol/L Potassium 3.6 (3.5-5.1) mmol/L Chloride 105 (98-107) mmol/L Carbon Dioxide 30 (21-32) mmol/L Anion Gap 6 (3-11) BUN 6 (6-23) mg/dl Creatinine 0.79 (0.6-1.2) mg/dl Est Cr Clr Drug Dosing 80.8 ml/min Est GFR ( Amer) 100.5 ml/min Est GFR (Non-Af Amer) 86.7 ml/min BUN/Creatinine Ratio 7.6 L (10-20) Glucose 103 H (70-99(Fasting)) mg/dl Calcium 9.9 (8.5-10.1) mg/dl Magnesium 1.9 (1.7-2.4) mg/dl Total Bilirubin 0.6 (0.2-1.0) mg/dl AST 115 H (13-39) U/L ALT 237 H (7-52) U/L Alkaline Phosphatase 351 H (34-104) U/L Total Protein 7.3 (6.0-8.3) gm/dl Albumin 4.1 (3.4-5.0) gm/dl Globulin 3.2 (2.5-4.0) gm/dl Albumin/Globulin Ratio 1.3 (0.9-2) Lipase 40 (11-82) U/L 25-OH Vitamin D Total (30-100) ng/ml TSH 3.253 (0.300-4.500) uIu/ml PTH Intact (12.0-88.0) pg/ml 10/12/22 10/11/22 Range/Units 07:38 Unknown WBC (4.8-10.8) K/ul RBC (4.20-5.40) M/uL Hgb (12.0-16.0) g/dl Hct (37.0-47.0) % MCV (80.0-100.0) fL MCH (25.0-34.0) pg MCHC (32.0-36.0) g/dL RDW Std Deviation (36.4-46.3) fL RDW Coeff of Chen (11.5-14.5) % Plt Count (130-400) K/uL MPV (9.4-12.4) fL Immature Gran % (Auto) % Neut % (Auto) % Lymph % (Auto) % Perry % (Auto) % Eos % (Auto) % Baso % (Auto) % Neut # (Auto) (1.40-6.50) K/uL Lymph # (Auto) (1.2-3.4) K/uL Perry # (Auto) (0.11-0.59) K/uL Eos # (Auto) (0-0.50) K/uL Baso # (Auto) (0-0.2) K/uL Immature Gran # (Auto) (0.01-0.20) K/uL Sodium (136-145) mmol/L Potassium (3.5-5.1) mmol/L Chloride (98-107) mmol/L Carbon Dioxide (21-32) mmol/L Anion Gap (3-11) BUN (6-23) mg/dl Creatinine (0.6-1.2) mg/dl Est Cr Clr Drug Dosing ml/min Est GFR ( Amer) ml/min Est GFR (Non-Af Amer) ml/min BUN/Creatinine Ratio (10-20) Glucose (70-99(Fasting)) mg/dl Calcium (8.5-10.1) mg/dl Magnesium (1.7-2.4) mg/dl Total Bilirubin (0.2-1.0) mg/dl AST (13-39) U/L ALT (7-52) U/L Alkaline Phosphatase (34-104) U/L Total Protein (6.0-8.3) gm/dl Albumin (3.4-5.0) gm/dl Globulin (2.5-4.0) gm/dl Albumin/Globulin Ratio (0.9-2) Lipase (11-82) U/L 25-OH Vitamin D Total 33.8 (30-100) ng/ml TSH (0.300-4.500) uIu/ml PTH Intact 30.5 (12.0-88.0) pg/ml PG Care Time/CCT Total # of Minutes Spent Total Time Spent with Patient: Total time spent is greater than 50% in coordination of care (as documented) at patient's floor/unit and/or counseling patient: Coding Level of Care Code 92882 SUB INP/OBS CARE MIN Diagnoses Diverticulitis K57.92 Chronic migraine G43.709 Gastritis K29.70 Breast cancer C50.919 Hypercalcemia E83.52 LFT elevation R79.89
[2022-10-12 08:30] LABS: Albumin Globulin Ratio 1.3 (0.9-2); Albumin Level 4.1 gm/dl (3.4-5.0); BUN Creatinine Ratio 7.6 (10-20); Bilirubin,Total 0.6 mg/dl (0.2-1.0); Calcium 9.9 mg/dl (8.5-10.1); Creatinine Clr Calc Pharmacy 80.8 ml/min; Est GFR (African American) 100.5 ml/min; Est GFR (Non-African American) 86.7 ml/min; Globulin 3.2 gm/dl (2.5-4.0); Magnesium 1.9 mg/dl (1.7-2.4); Potassium 3.6 mmol/L (3.5-5.1); Total Protein 7.3 gm/dl (6.0-8.3)
[2022-10-12 08:47] LABS: Basophils # (auto) 0.07 K/uL (0-0.2); Basophils % (auto) 1.3 %; Eosinophils # (auto) 0.15 K/uL (0-0.50); Eosinophils % (auto) 2.8 %; Immature Granulocytes # (auto) 0.08 K/uL (0.01-0.20); Immature Granulocytes % (auto) 1.5 %; Lymphocytes # (auto) 1.55 K/uL (1.2-3.4); Lymphocytes % (auto) 29.2 %; Monocytes # (auto) 0.31 K/uL (0.11-0.59); Monocytes % (auto) 5.8 %; Neutrophils # (auto) 3.15 K/uL (1.40-6.50); Neutrophils % (auto) 59.4 %
[2022-10-12] MEDS ORDERED: PROCHLORPERAZINE 5 MG/ML 2 ML VIAL IV STA (09:54)
[2022-10-12] MEDS: PANTOprazole 40 MG in SYRINGE 0 ML IV SCH ×2 (10:00→19:52)
[2022-10-12] MEDS ORDERED: PROCHLORPERAZINE 10 MG in SYRINGE 8 ML IV ONE (10:00)
[2022-10-12] MEDS: diphenhydrAMINE 50 MG/ML VIAL IV PRN (12:02)
--- NOTE | 2022-10-12 12:09 | Ultrasound Report ---
US liver CLINICAL HISTORY: eval elevated LFTs, hx cholecystectomy COMPARISON STUDY: MRCP September 24, 2020 CT of the abdomen and pelvis October 10, 2022. FINDINGS: Hepatic echogenicity is increased. No hepatic lesions are identified. There is no biliary d uctal dilatation status post cholecystectomy. Common bile duct measures 4 mm in caliber. Pancreatic b graham is normal. Head and tail are slightly obscured. There is mild right hydronephrosis. Small calculu s within lower pole of the right kidney is noted. IMPRESSION: 1. No biliary ductal dilatation status post cholecystectomy. 2. Hepatic steatosis. 3. Mild right hydronephrosis which has developed since prior CT. Small right renal calculus. ACT 112: Negative or not required by law. Electronically signed by: Olayinka Silva M.D. 10/12/2022 12:07 PM
[2022-10-12] MEDS ORDERED: KETOROLAC TROMETHAMINE 15 MG/ML VIAL IV ONE (12:10)
[2022-10-12] MEDS ORDERED: KETOROLAC TROMETHAMINE 15 MG/ML VIAL IV PRN (13:17)
[2022-10-12 14:32] LABS: Appearance Urine Clear (Clear); Bilirubin Urine Negative (Negative); Blood Urine Negative (Negative); Color Urine Yellow; Glucose Urine UA Negative (Negative); Ketones Urine Negative (Negative); Leukocyte Esterase Urine Negative (Negative); Nitrite Urine Negative (Negative); Protein Urine Negative (Negative); Urobilinogen Urine Negative (Negative); pH Urine 8.5 (4.5-7.5)
[2022-10-12] MEDS: TAMSULOSIN HCL 0.4 MG CAP PO SCH (19:51)
[2022-10-12] MEDS: ENOXAPARIN INJ 40 MG/0.4 ML SYR SQ SCH (19:52)
[2022-10-13] MEDS: PIPERACILLIN/TAZOBACTAM 3.375 GM in DEXTROSE 5% 100 ML IV SCH ×3 (03:31→18:06)
[2022-10-13] MEDS: LACTATED RINGER'S 1,000 ML IV SCH (05:00)
[2022-10-13] MEDS: PANTOprazole 40 MG in SYRINGE 0 ML IV SCH (07:50)
--- NOTE | 2022-10-13 07:59 | Hospitalist Progress Note ---
Date of Service October 13, 2022 Assessment & Plan (1) Diverticulitis: Plan: Had initially felt to have kidney stone and put on cipro/flomax, then discovered had acute diverticulitis and was placed on cipro/flagyl as outpatient w/ clear liquid diet (however patient reported to me she did not get education on dietary modifications and initially was eating cheeseburger/fries before looking up on google about limiting her oral intake/bowel rest) , had progression of nausea/bloating/pain and presented to ER 10/08 CTAP w/ progression of acute diverticulitis of the distal descending colon. Increase in associated inflammation since CT of October 06, 2022. No free air. No abscess. No bowel obstruction. B/l nephrolithiasis, no ureteral calculi or hydronephrosis IV Zosyn -- plan to complete course w/ PO Augmentin given failure cipro/flagyl IVF 100cc/hr, can d/c this afternoon if tolerating advancement of diet to full liquids WBC wnl, afebrile Protonix IV BID for GI symptoms, can transition to PO BID Pain control/antiemetics +BM 10/12, no further diarrhea reported Labs from AM pending -- electrolyte replacement as needed Planning for advancement to low fiber diet in am if continues to be stable -- will need information provided for low fiber diet dining room tables set up attendant to assist w/ f/u GI for scope in 6-8 weeks outpatient (2) Chronic migraine: Plan: Pain control - tylenol, phenergan available. Given compazine and toradol 10/12 Headache improved, only mild -- improved w/ caffeine this morning Of note, headaches PRECEDED her dx breast ca, prior imaging w/o metastatic disease Additional dose of toradol as needed (also for help w/ her CVA tenderness/kidney stone) (3) Gastritis: Plan: Possible diagnosis with epigastric pain/chest pain during ER visit with resolution of symptoms after GI cocktail. Trop negative. EKG NSR Given famotidine IV and continued on protonix daily Reporting some upper epigastric discomfort. Lipase wnl and increased protonix to BID / continue ppi bid, converted to PO as tolerating intake (4) Breast cancer: Plan: From note Aug 2020 in system w/ detection on routine mammo Jul 2020. Core bx ER neg, [place] neg, HER2 neg. Breast MRI Jul 2020, chemo port placed Sep 20 and bone scan w/o metastatic involvement. Started chemo at that time through December, and per patient she had underwent b/l mastectomy and is not on any maintenance medications Had clot form @ port in December 2020, was on blood thinner x 1 month and port removed F/u outpt w/ oncology for routine monitoring (5) Hypercalcemia: Plan: given hx stones, check vit D to ensure no deficiency given Ca 10.9 on admit. Vit D 33.8, PTH 30.5 however calcium normalized. Would f/u outpatint and further eval if any elevations when resolved from illness to r/o underlying malignancy does have pulm nodules being monitored of note (6) LFT elevation: Plan: slightly elevated in ER 10/06 w/ AST 71/ALT 107 Slightly worsened on admission to AST 31, ALT 80, ALP 186 but TB was normal Patient is s/p cholecystectomy -- does admit occasional wine intake, no excessive TSH wnl 3.2 -- off meds for years in patient w/ prior hx hypothyroidism CK wnl ?med related -- methocarbamol at home but hadn't gotten recently. Multiple doses morphine in ER, switched to Dilaudid as needed for breakthrough and decreased her tylenol to 2gm max daily. Denied RUQ pain on exam but was slightly tender epigastric region. Lipase wnl. RUQ U/S check showed R hydro/stone Urology consulted as below (7) Kidney stone: Plan: initially thought to have stone by PCP and placed on flomax/cipro before known diverticulitis as above RUQ imaging w/ Mild right hydronephrosis which has developed since prior CT. Small right renal calculus. Placed on flomax HS - would continue at d/c UOP great, Cr stable, d/c IVF this afternoon planned Urology consulted, but suspect conservative tx and outpt f/u -- they have not yet seen this morning Plan VTE Prophylaxis - Lovenox 40mg SQ daily (increased risk due to history of cancers and prior clot although this was around a central line) advanced diet to full liquid -- consider low fiber tonight vs tomorrow morning and possible d/c Admission and Anticipated Discharge Date Admission Date: October 10, 2022 Supervising Physician Co-Signing Physician Notes JULIANO Supervision Note: I did not personally see or examine the patient today, but I verified all colon points of JULIANO Maldonado's assessment and plan with the following exceptions/additions: None Subjective eval this morning, working on her laptop denies ANY abdominal pain, does have some R flank pain - discussed stone and urology consulted. no passage of stone/hematuria reported. discussed probably will need outpt f/u she would like to advance her diet, call to kitchen to send up full liquid. discussed possible low fiber tonight if she was wanting d/c but she did agree she would prefer to stay overnight and slow advancement of diet. if tolerating diet will d/c IVF this afternoon, possible low fiber diet for breakfast in am and d/c. questions/concerns addressed at this time. Physical Exam Physical Exam: General :WD/WN female sitting up in recliner, NAD, working on laptop HEENT: head normocephalic, atraumatic, mm MOIST, trachea midline Resp: CTAB, no w/c, 97% on RA CV: RRR, no significant m/r/g GI: +BS, soft/NT, no rebound/guarding : no enriquez, +R sided CVA tenderness MSK/Neuro: no focal deficit, no slurred speech, answering questions appropriately Psych: AO, pleasant and cooperative Results & Data Results & Data ([facility]) Vital Signs (Past 12 Hours) Vital Signs Temp Pulse Resp BP Pulse Ox O2 Del Method 10/13/22 07:36 36.4 C L 61 18 122/79 97 Room Air 10/12/22 21:42 36.6 C 63 16 134/83 95 Room Air Laboratory Results 10/12/22 10/12/22 10/12/22 Range/Units 14:15 07:38 07:38 WBC (4.8-10.8) K/ul RBC (4.20-5.40) M/uL Hgb (12.0-16.0) g/dl Hct (37.0-47.0) % MCV (80.0-100.0) fL MCH (25.0-34.0) pg MCHC (32.0-36.0) g/dL RDW Std Deviation (36.4-46.3) fL RDW Coeff of Chen (11.5-14.5) % Plt Count (130-400) K/uL MPV (9.4-12.4) fL Immature Gran % (Auto) % Neut % (Auto) % Lymph % (Auto) % Ferry % (Auto) % Eos % (Auto) % Baso % (Auto) % Neut # (Auto) (1.40-6.50) K/uL Lymph # (Auto) (1.2-3.4) K/uL Ferry # (Auto) (0.11-0.59) K/uL Eos # (Auto) (0-0.50) K/uL Baso # (Auto) (0-0.2) K/uL Immature Gran # (Auto) (0.01-0.20) K/uL Sodium 141 (136-145) mmol/L Potassium 3.6 (3.5-5.1) mmol/L Chloride 105 (98-107) mmol/L Carbon Dioxide 30 (21-32) mmol/L Anion Gap 6 (3-11) BUN 6 (6-23) mg/dl Creatinine 0.79 (0.6-1.2) mg/dl Est Cr Clr Drug Dosing 80.8 ml/min Est GFR ( Amer) 100.5 ml/min Est GFR (Non-Af Amer) 86.7 ml/min BUN/Creatinine Ratio 7.6 L (10-20) Glucose 103 H (70-99(Fasting)) mg/dl Calcium 9.9 (8.5-10.1) mg/dl Magnesium 1.9 (1.7-2.4) mg/dl Total Bilirubin 0.6 (0.2-1.0) mg/dl AST 115 H (13-39) U/L ALT 237 H (7-52) U/L Alkaline Phosphatase 351 H (34-104) U/L Total Protein 7.3 (6.0-8.3) gm/dl Albumin 4.1 (3.4-5.0) gm/dl Globulin 3.2 (2.5-4.0) gm/dl Albumin/Globulin Ratio 1.3 (0.9-2) Lipase 40 (11-82) U/L TSH 3.253 (0.300-4.500) uIu/ml PTH Intact (12.0-88.0) pg/ml Urine Color Yellow Urine Appearance Clear (Clear) Urine pH 8.5 H (4.5-7.5) Ur Specific Mayo 1.010 (1.000-1.030) Urine Protein Negative (Negative) Urine Glucose (UA) Negative (Negative) Urine Ketones Negative (Negative) Urine Blood Negative (Negative) Urine Nitrite Negative (Negative) Urine Bilirubin Negative (Negative) Urine Urobilinogen Negative (Negative) Ur Leukocyte Esterase Negative (Negative) 10/12/22 10/12/22 Range/Units 07:38 07:38 WBC 5.31 (4.8-10.8) K/ul RBC 4.44 (4.20-5.40) M/uL Hgb 14.0 (12.0-16.0) g/dl Hct 40.1 (37.0-47.0) % MCV 90.3 (80.0-100.0) fL MCH 31.5 (25.0-34.0) pg MCHC 34.9 (32.0-36.0) g/dL RDW Std Deviation 43.1 (36.4-46.3) fL RDW Coeff of Chen 13.1 (11.5-14.5) % Plt Count 268 (130-400) K/uL MPV 10.0 (9.4-12.4) fL Immature Gran % (Auto) 1.5 % Neut % (Auto) 59.4 % Lymph % (Auto) 29.2 % Ferry % (Auto) 5.8 % Eos % (Auto) 2.8 % Baso % (Auto) 1.3 % Neut # (Auto) 3.15 (1.40-6.50) K/uL Lymph # (Auto) 1.55 (1.2-3.4) K/uL Ferry # (Auto) 0.31 (0.11-0.59) K/uL Eos # (Auto) 0.15 (0-0.50) K/uL Baso # (Auto) 0.07 (0-0.2) K/uL Immature Gran # (Auto) 0.08 (0.01-0.20) K/uL Sodium (136-145) mmol/L Potassium (3.5-5.1) mmol/L Chloride (98-107) mmol/L Carbon Dioxide (21-32) mmol/L Anion Gap (3-11) BUN (6-23) mg/dl Creatinine (0.6-1.2) mg/dl Est Cr Clr Drug Dosing ml/min Est GFR ( Amer) ml/min Est GFR (Non-Af Amer) ml/min BUN/Creatinine Ratio (10-20) Glucose (70-99(Fasting)) mg/dl Calcium (8.5-10.1) mg/dl Magnesium (1.7-2.4) mg/dl Total Bilirubin (0.2-1.0) mg/dl AST (13-39) U/L ALT (7-52) U/L Alkaline Phosphatase (34-104) U/L Total Protein (6.0-8.3) gm/dl Albumin (3.4-5.0) gm/dl Globulin (2.5-4.0) gm/dl Albumin/Globulin Ratio (0.9-2) Lipase (11-82) U/L TSH (0.300-4.500) uIu/ml PTH Intact 30.5 (12.0-88.0) pg/ml Urine Color Urine Appearance (Clear) Urine pH (4.5-7.5) Ur Specific Mayo (1.000-1.030) Urine Protein (Negative) Urine Glucose (UA) (Negative) Urine Ketones (Negative) Urine Blood (Negative) Urine Nitrite (Negative) Urine Bilirubin (Negative) Urine Urobilinogen (Negative) Ur Leukocyte Esterase (Negative) PG Care Time/CCT Total # of Minutes Spent Total Time Spent with Patient: Total time spent is greater than 50% in coordination of care (as documented) at patient's floor/unit and/or counseling patient: Coding Level of Care Code 14801 SUB INP/OBS CARE MIN Diagnoses Diverticulitis K57.92 Chronic migraine G43.709 Gastritis K29.70 Breast cancer C50.919 Hypercalcemia E83.52 LFT elevation R79.89 Kidney stone N20.0
[2022-10-13 11:53] LABS: Hematocrit (blood only) 38.4 % (37.0-47.0); Hemoglobin 13.2 g/dl (12.0-16.0); Mean Corpuscular Hemoglobin 30.6 pg (25.0-34.0); Mean Corpuscular Hgb Conc 34.4 g/dL (32.0-36.0); Mean Corpuscular Volume 88.9 fL (80.0-100.0); Mean Platelet Volume 10.8 fL (9.4-12.4); Platelet Count 255 K/uL (130-400); RDW Coefficient of Variation 13.2 % (11.5-14.5); RDW Standard Deviation 42.9 fL (36.4-46.3); Red Blood Count 4.32 M/uL (4.20-5.40); White Blood Count 5.77 K/ul (4.8-10.8)
[2022-10-13 12:14] LABS: Albumin Globulin Ratio 1.2 (0.9-2); Albumin Level 3.8 gm/dl (3.4-5.0); BUN Creatinine Ratio 5.2 (10-20); Bilirubin,Total 0.4 mg/dl (0.2-1.0); Calcium 9.8 mg/dl (8.5-10.1); Creatinine Clr Calc Pharmacy 82.9 ml/min; Est GFR (African American) 103.6 ml/min; Est GFR (Non-African American) 89.4 ml/min; Globulin 3.3 gm/dl (2.5-4.0); Potassium 3.3 mmol/L (3.5-5.1); Total Protein 7.1 gm/dl (6.0-8.3)
[2022-10-13 12:16] LABS: Basophils # (auto) 0.05 K/uL (0-0.2); Basophils % (auto) 0.9 %; Eosinophils # (auto) 0.17 K/uL (0-0.50); Eosinophils % (auto) 2.9 %; Immature Granulocytes # (auto) 0.06 K/uL (0.01-0.20); Lymphocytes % (auto) 31.2 %; Monocytes # (auto) 0.37 K/uL (0.11-0.59); Monocytes % (auto) 6.4 %; Neutrophils # (auto) 3.32 K/uL (1.40-6.50); Neutrophils % (auto) 57.6 %
[2022-10-13] MEDS ORDERED: POTASSIUM CHLORIDE CRTAB 20 MEQ TABCR PO STA (12:25)
[2022-10-13] MEDS ORDERED: MAGNESIUM SULFATE / D5W 1 GM/100 ML BAG IV ONE (12:25)
--- NOTE | 2022-10-13 13:44 | Urology Consultation ---
Date of Consultation October 13, 2022 Assessment & Plan (1) Kidney stone: (2) Hydronephrosis, right: 51 yo F admitted for management of acute diverticulitis after failing outpatient treatment. Urology consulted for evaluation of right hydronephrosis. Subjectively improving from diverticulitis. Pain improved, tolerating full liquid diet. Urinalysis on admission was not suggestive of infection. No urine culture pending. She is currently on IV Zosyn for treatment of acute diverticulitis. Mild right hydronephrosis and right renal stone noted on liver ultrasound on 10/12, performed due to elevated LFTs. CT A/P on 10/10 showed bilateral nephrolithiasis, no ureteral stones or hydronephrosis. She is not having right flank pain at present. She is afebrile, creatinine normal and no leukocytosis. No acute intervention warranted at this time. We discussed options for management including observation given her other acute issues. Continue supportive care, antibiotics and medical management per hospital medicine service. Recommend continue tamsulosin. We will arrange outpatient follow-up with our service with repeat imaging. History of Present Illness Attending Physician: Shira Trinidad MD History of Present Illness This is a 51-year-old female with history of breast cancer, migraine, and nephrolithiasis who presented to the emergency department on 10/10/2022 with persistent left lower quadrant abdominal pain with associated nausea and vomiting. She was seen initially by her PCP who ordered a CT abdomen and pelvis. She was prescribed ciprofloxacin and tamsulosin for suspected kidney stone. However when the results of the CT showed diverticulitis she was started on metronidazole in addition to Ciprofloxacin. Her abdominal pain was worsening so she was referred to the emergency department. On arrival, she was afebrile, hemodynamically stable. Lab work independently reviewed. CBC showed WBC 8.92, hemoglobin 13.7. Chemistry showed a creatinine of 0.85. Urinalysis showed 1+ LE, 1-5 WBC, 0-4 RBC, negative for bacteria. CT A/P showed progression of acute diverticulitis of the distal descending colon, increase in associated inflammation since prior CT on 10/06/2022. No free air, no abscess. Bilateral nephrolithiasis, no ureteral calculi or hydronephrosis. ER course included IV fluids, Zosyn, morphine, Zofran. She was admitted to the hospital medicine service. Urology consulted for evaluation of right hydronephrosis, stone, nausea. Patient underwent liver ultrasound on 10/12/2022 for evaluation of elevated LFTs, history of cholecystectomy. Liver ultrasound showed mild right hydronephrosis which has developed since prior CT. Small right renal calculus. Chart review: Afebrile Creatinine - 0.77 WBC - 5.77 Hgb 13.2 UA on admission 1+ LE, 1-5 WBC, 0-4 RBC, negative for bacteria. No urine culture pending On IV Zosyn Imaging Liver US - IMPRESSION: 1. No biliary ductal dilatation status post cholecystectomy. 2. Hepatic steatosis. 3. Mild right hydronephrosis which has developed since prior CT. Small right renal calculus. Patient seen and examined at bedside this afternoon. She is awake, alert and sitting up in bedside chair. She reports left lower quadrant pain is improving. No right flank pain at present. No nausea or vomiting. She is tolerating full liquid diet. She is voiding without difficulty. No dysuria or hematuria. No fever or chills. She reports history of kidney stones. Last intervention was ESWL in 2019. Reports no issues with stones since her last surgery. Allergies Allergy/AdvReac Type Severity Reaction Status Date / Time codeine Allergy Severe TACHYCARDIA, Verified 10/10/22 15:26 CHEST PAIN Home Medications Medication Instructions Recorded Confirmed Type biotin 10 mg tablet 10 mg PO QAM 07/17/21 10/10/22 History multivitamin 1 tab PO QAM 07/17/21 10/10/22 History ciprofloxacin HCl 500 mg tablet 500 mg PO Q12 10/10/22 10/10/22 History metronidazole 500 mg tablet 500 mg PO Q8 10/10/22 10/10/22 History tamsulosin 0.4 mg capsule 0.4 mg PO HS 10/10/22 10/10/22 History pantoprazole 40 mg tablet,delayed 40 mg PO DAILY #30 tabs 10/11/22 Rx release Patient History Medical History History of blood clots CLOT FORMED AT A-PORT SIDE>DECEMBER 2020 (WAS ON BLOOD THINNER FOR 1 MONTH) A-PORT REMOVED History of kidney stones Hodgkin disease HX OF, HX CHEMO Hx of pancreatitis HX: breast cancer CHEMO 08/2020>12/2020 THEN SURGERY Hypothyroid Hypothyroidism Migraine Surgical History Family history of reaction to anesthesia mother nausea H/O bilateral mastectomy WITH RECONSTRUCTION H/O breast reconstruction H/O tubal ligation History of 3 sections 1995, 1997, 2002 History of anesthesia reaction REPORTS HX CHEMO BLEOMYCIN (?SPELLING/PT NOT SURE) - WAS TOLD THAT IF HAVING ANESTHESIA TO NOTIFY OF BLEOMYCIN HX AND OXYGEN TOXICITY (PT REPORTS HAS NEVER HAD PROBLEM WITH) History of colonoscopy History of esophagogastroduodenoscopy (EGD) History of lithotripsy History of lung biopsy History of tonsillectomy History of vascular access device A-PORT INSERTION AND REMOVAL History of wisdom tooth extraction Hx of bilateral breast reduction surgery Hx of cholecystectomy PONV (postoperative nausea and vomiting) NAUSEA ONLY Family History Mother Breast cancer Father Colorectal cancer Grandmother (Maternal) Breast cancer Uterine cancer Other No family history of bleeding disorder Social History Smoking Status: Never smoker Second Hand Exposure: No; Hx Alcohol Use: No Hx Substance Use: No Preferred Language: Luxembourgish Communication Ability: Effective Visual Impairment: No Limitations Hearing Ability: Normal Sheep Shearer Required: No Beliefs That Will Affect Care: None marital status: Current Living Situation: Spouse current occupational status: employed current occupation: human capital analyst @ [employer] Feels Safe at Home: Yes Assistive Devices: None Review of Systems Review of Systems: All systems reviewed & are unremarkable except as noted in HPI & below Physical Exam Constitutional: well developed and well nourished; no acute distress and not ill appearing Eyes: no scleral abnormality Neck: normal visual inspection Respiratory: normal respiratory effort and able to speak in complete sentences; no respiratory distress and no labored breathing Cardiovascular: Extremities: no pedal edema Gastrointestinal (Abdomen): Inspection/Auscultation: abdomen normal to inspection; abdomen not distended Percussion/Palpation: + abdomen tender (LLQ) and abdomen soft; no guarding Musculoskeletal: Head/Neck/Chest: normocephalic and head atraumatic Skin: no rashes noted on exposed skin Neurologic: moves all extremities and awake Psychiatric: Orientation: alert and oriented x 3 Genitourinary: mild tenderness over right flank Results & Data ([employer] [facility]) Vital Signs (Past 12 Hours) Vital Signs Temp Pulse Resp BP Pulse Ox O2 Del Method 10/13/22 07:36 36.4 C L 61 18 122/79 97 Room Air PG Care Time/CCT Total # of Minutes Spent Total Time Spent with Patient: Total time spent is greater than 50% in coordination of care (as documented) at patient's floor/unit and/or counseling patient: Coding Level of Care Code INP/OBS CONSULT LVL 3, 45 MIN Diagnoses Kidney stone N20.0 Hydronephrosis, right N13.30
[2022-10-13] MEDS: PANTOprazole 40 MG TAB PO SCH (20:18)
[2022-10-13] MEDS: ENOXAPARIN INJ 40 MG/0.4 ML SYR SQ SCH (20:18)
[2022-10-13] MEDS: TAMSULOSIN HCL 0.4 MG CAP PO SCH (20:19)
[2022-10-14] MEDS: PIPERACILLIN/TAZOBACTAM 3.375 GM in DEXTROSE 5% 100 ML IV SCH ×2 (03:18→10:29)
--- NOTE | 2022-10-14 07:41 | Discharge Summary ---
Date of Service October 14, 2022 Admission HPI Per Admitting Provider November Rosalee is a 51-year-old female who presents to the ER with abdominal pain. Her initial symptoms started Thursday night (6 days ago) with left lower quadrant pain. She has a history of kidney stones and although this felt different as more anteriorly she initially thought this was the diagnosis. She went to see a PCP on Thursday (4 days ago) who ordered CT abdomen pelvis. She was initially prescribed ciprofloxacin and tamsulosin due to suspected kidney stone however when results of the CT showed diverticulitis the following day she was taken off tamsulosin and started on metronidazole. Although she was not told to change her diet she read about the diagnosis online and started on clear liquids with the occasional toast. She did not feel any significant improvement and abdominal pain was slightly getting worse therefore she called her PCP who advised her to go to the ER. She denies any diarrhea, constipation, vomiting, melena or bright red blood in stool. She is currently having nausea after pain medication given in the emergency room. She has no history of diverticulitis. Last colonoscopy in [address] Chávez. Diverticulosis was noted on colonoscopy but otherwise was unremarkable and recommended 5-year follow-up due to family history of colon cancer. In the emergency room CT abdomen pelvis was concerning for progression of acute diverticulitis with increasing associated inflammation however white blood count has improved from 13.83-8.92 today. Given her worsening symptoms and imaging she is referred to medicine for admission and ongoing management of worsening diverticulitis. Admission Exam Per Admitting Provider Constitutional: WD/WN, vitals as above ENMT: external ear and nose normal, oropharynx normal Neck: trachea midline, no thyromegaly Respiratory: normal respiratory effort, lungs clear to auscultation Cardiovascular: RRR, no murmur, no edema Gastrointestinal (Abdomen): Percussion/Palpation: + abdomen tender (LLQ) and abdomen soft; no guarding and abdomen not rigid Musculoskeletal: no cyanosis or clubbing, extremities motor strength 5/5 Skin: no rashes, warm and dry Neurologic: moves all extremities and awake; not confused Psychiatric: A+Ox3, euthymic affect Principal Diagnosis Diverticulitis, Failure outpatient therapy Discharge Exam General WD/WN female sitting up in chair, NAD HEENT: head normocephalic, atraumatic, mm MOIST, trachea midline Resp: CTAB, no w/c, 97% on RA CV: RRR, no significant m/r/g GI: +BS, soft/NT, no rebound/guarding : no enriquez, slight R sided CVA tenderness, improved MSK/Neuro: no focal deficit, no slurred speech, answering questions appropriately Psych: AOx3, pleasant and cooperative Discharge Data Allergies Allergy/AdvReac Type Severity Reaction Status Date / Time codeine Allergy Severe TACHYCARDIA, Verified 10/10/22 15:26 CHEST PAIN Consultations 10/10/22 13:51 ED Decision to Admit Stat 10/12/22 12:29 Consult Urology Routine Ordered Studies Abdomen/Pelvis CT 10/10/22 10:46 CT OF THE ABDOMEN AND PELVIS WITH CONTRAST CLINICAL HISTORY: Worsening left lower quadrant pain. COMPARISON STUDY: CT of the abdomen and pelvis October 06, 1999 2300 TRAVERSE October 2022. TECHNIQUE: Following IV administration of 87 mL of Optiray, axial images of the abdomen and pelvis were obtained from the lung bases to the proximal femurs. Images were reviewed in the axial, sagittal, and coronal planes. IV contrast was administered without complication. Automated exposure control was utilized for the study. A dose lowering technique was utilized adhering to the principles of ALARA. CT DOSE: 399.19 mGy.cm FINDINGS: Elevation of the left hemidiaphragm is again noted. Dense vascular calcification remains unchanged from earlier exams. 1 cm subpleural right lower lobe nodule is again noted. This remains indeterminate. No pneumatosis, free air or portal venous gas is present. There is hepatic steatosis. No significant biliary ductal dilatation is noted status post cholecystectomy. Bilateral renal calculi measure up to 4 mm. There are no ureteral calculi and there is no hydronephrosis. A 2 cm left renal lesion was shown to represent a cyst on prior ultrasound. 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 There is no evidence for a bowel obstruction. The appendix is normal. An inflamed diverticulum of the distal descending colon is noted. Moderate associated colonic wall thickening and inflammation is noted with associated fluid. Inflammation has increased since CT of October 06, 2022. There is no free air. No associated abscess is present. Trace fluid within pelvis is noted. Postoperative findings within the anterior abdominal wall are incidentally noted. There are no acute fractures. No lymphadenopathy is present. IMPRESSION: 1. Progression of acute diverticulitis of the distal descending colon. Increase in associated inflammation since CT of October 06, 2022. No free air. No abscess. 2. No bowel obstruction. 3. Bilateral nephrolithiasis. No ureteral calculi or hydronephrosis. ACT 112: Negative or not required by law. Electronically signed by: Olayinka Sliva M.D. 10/10/2022 1:46 PM Liver Ultrasound 10/12/22 10:06 US liver CLINICAL HISTORY: eval elevated LFTs, hx cholecystectomy COMPARISON STUDY: MRCP September 24, 2020 CT of the abdomen and pelvis October 10, 2022. FINDINGS: Hepatic echogenicity is increased. No hepatic lesions are identified. There is no biliary ductal dilatation status post cholecystectomy. Common bile duct measures 4 mm in caliber. Pancreatic body is normal. Head and tail are slightly obscured. There is mild right hydronephrosis. Small calculus within lower pole of the right kidney is noted. IMPRESSION: 1. No biliary ductal dilatation status post cholecystectomy. 2. Hepatic steatosis. 3. Mild right hydronephrosis which has developed since prior CT. Small right renal calculus. ACT 112: Negative or not required by law. Electronically signed by: Olayinka Silva M.D. 10/12/2022 12:07 PM Hospital Course (1) Diverticulitis: Had initially felt to have kidney stone and put on cipro/flomax, then discovered had acute diverticulitis and was placed on cipro/flagyl as outpatient w/ clear liquid diet (however patient reported to me she did not get education on dietary modifications and initially was eating cheeseburger/fries before looking up on google about limiting her oral intake/bowel rest) , had progression of nausea/bloating/pain and presented to ER /8 Imaging w/ progression of acute diverticulitis of the distal descending colon. Increase in associated inflammation since CT of October 06, 2022. No free air. No abscess. No bowel obstruction. Noted b/l nephrolithiasis, no ureteral calculi or hydronephrosis (initially) Placed on IV Zosyn, pain control/antiemetics prn, IVF, supportive care Diet advanced to low fiber AM 2, tolerating NO ABDOMINAL/LLQ pain on exam (does have some R CVA discomfort, UA neg for infection on admit- RUQ w/ R sided hydro/stone, Urology consulted, rx to continue flomax HS and f/u outpatient - see below). Low susp for any ischemic process given no abdominal pain on exam +BM 10/12 loose, no blood. +BM overnight 10/13-10/14 (off IVF since afternoon 10/13) MELENA appearance. ?diverticular vs more likely possible PUD disease underlying w/ use of ibuprofen for migraines and "CP" more so gastritis symptoms improved/resolved since GI cocktail in ER and use of protonix Cdiff NEGATIVE, checked for loose stools on abx Of note, patient believes she may have lactose intolerance/possible celiac -- had been having dairy w/ liquid diet, could have caused bleeding. Sent IgA/celiac panel and stool fat/calprotectin prior to d/c and can have outpt follow up +/- EGD with her c-scope (family hx colon ca, prior c-scope w/ Dr Case) Tolerating low fiber diet for breakfast/lunch Rx for Augmentin to complete course abx at discharge. Discussed w/ GI given need for outpt f/u c-scope for her diverticulitis and felt given no abdominal pain/WBC wnl/afebrile and hgb actually 14.2 from 13.2 w/o signs of dehydration that patient can be discharged and have outpatient follow up. Encouraged avoidance of NSAIDs at home and to return to ER if any worsening abdominal pain/bleeding/worsening diarrhea (2) Chronic migraine: Pain control/tylenol -- limit use to 2gm or less daily given LFT elevation RUQ US to r/o any retained stone -- no CBD dilation, no further epigastric discomfort (lipase wnl) GIven dose compazein + toradol x 1 10/12 w/ improvement/resolution Given 1gm PO tylenol prior to d/c No worrisome sx at this time/worst headache/etc warranting CT/MRI head at this time She typically gets headaches from caffeine withdrawal as well F/u PCP (3) Gastritis: Possible diagnosis with epigastric pain/chest pain during ER visit with resolution of symptoms after GI cocktail. Trop negative. EKG NSR. Lipase wnl Given famotidine IV and continued on protonix daily which was increased to BID / w/ resolution in symptoms and patient to continue PPI BID. Carafate deferred given improvement in symptoms but discussed avoidance of alcohol/NSAIDs Outpt GI f/u (4) Breast cancer: From note Aug 2020 in system w/ detection on routine mammo Jul 2020. Core bx ER neg, NE neg, HER2 neg. Breast MRI Jul 2020, chemo port placed Sep 20 and bone scan w/o metastatic involvement. Started chemo at that time through December, and per patient she had underwent b/l mastectomy and is not on any maintenance medications Had clot form @ port in December 2020, was on blood thinner x 1 month and port removed F/u outpt w/ oncology for routine monitoring (5) Hypercalcemia: given hx stones, check vit D to ensure no deficiency given Ca 10.9 on admit. Could have been from acute illness as well Vit D 33.8, PTH 30.5 however calcium normalized. Would f/u outpatient and further eval if any elevations when resolved from illness to r/o underlying malignancy does have pulm nodules being monitored of note -- f/u outpatient (6) LFT elevation: slightly elevated in ER 10/06 w/ AST 71/ALT 107 Slightly worsened on admission to AST 31, ALT 80, ALP 186 but TB was normal Patient is s/p cholecystectomy -- does admit occasional wine intake, no excessive TSH wnl 3.2 -- off meds for years in patient w/ prior hx hypothyroidism CK wnl ?med related -- methocarbamol at home but hadn't gotten recently. Multiple doses morphine in ER, switched to Dilaudid as needed for breakthrough and decreased her tylenol to 2gm max daily. Denied RUQ pain on exam but was slightly tender epigastric region. Lipase wnl. RUQ U/S check showed R hydro/stone LFTs w/ continued improvement on repeat Avoid hepatotoxic agents at d/c, limit Tylenol/alcohol use (7) Kidney stone: initially thought to have stone by PCP and placed on flomax/cipro before known diverticulitis as above RUQ imaging w/ Mild right hydronephrosis which has developed since prior CT. Small right renal calculus. Placed on flomax HS - continued at d/c UOP great, Cr stable, d/c IVF and UOP continued Urology consulted Discussed and they would avoid obtaining renal US for further eval conservative treatment and f/u outpatient and continue flomax recommended Plan VTE Prophylaxis - Lovenox 40mg SQ daily while inpatient Total Time Total Time Spent Total Time Spent (In Minutes): 45 Discharge Plan Discharge Items Patient Disposition: Home - Self-Care Reason For Visit: ACUTE DIVERTICULITIS Discharge Diagnosis: Acute Diverticulitis, Kidney Stone Goals: You have been hospitalized for an acute medical problem. During your stay at [facility], we have made an effort to correct the problem that brought you to the hospital while keeping you as comfortable as possible. Medications were used to bring your condition under control and your discharge instructions will include directions for any medications you should take after leaving the hospital. Please make sure you see your Primary Care Provider as part of your follow up plan. Activity: As commented below Non-emergency contact: Primary Care Provider, Deadener and Urologist Call non-emergency contact if: you have any medication questions, your symptoms worsen, your pain is concerning for you and you have a fever Follow-up/Referrals: Pancho Chávez DO [Physician] - (6-8 weeks) Braxton Pena MD [Physician] - Aelx Durand M.D. [Primary Care Provider] - Diet: Low Fiber and Lactose Intolerant Maditl Attending Provider Instructions: You have been hospitalized for acute diverticulitis which had failed outpatient oral antibiotics initially, however as discussed this could have been due to lack of dietary restriction. You were treated with IV antibiotics with ZOSYN and will be sent home on Augmentin to complete a course. This will be twice daily for an additional 5 days days to complete a 10 day course. Your next dose will be due tonight. We used protonix for reflux symptoms and this can be continued twice a day at discharge and follow up with Dr Chávez for any concerns. You were placed on bowel rest initially and your diet has been slowly advanced. You should continue a LOW FIBER diet for two weeks and then can advance diet as tolerated. Given discussion of the possible underlying lactose intolerance or celiac, would recommend avoiding dairy as this can cause some blood in your stool. You should avoid NSAIDs (ibuprofen, aleve, naproxen, motrin) that could worsen bleeding. Given your reported chest pain on admission and NSAID use for migraine, you could have some underlying peptic ulcer disease, and again are being sent on protonix twice daily. If any ongoing issues, primary care can add carafate but your symptoms have been stable on protonix currently and your hemoglobin level is actually higher than the day before. You will need to have follow up colonoscopy after this infection is cleared up and can follow up with Dr Chávez as he did your previous scope. You were also then found to have evidence for hydronephrosis (fluid back up to kidney) likely from a kidney stone and urology was consulted and recommendations are to continue to stay hydrated and continue flomax 0.4mg at night. You will need to have follow up with Urology after treatment for your diverticulitis and between your trips for repeat evaluation/imaging and determination if treatment is required if you do not pass the stone by yourself. Would avoid any alcohol for the next week as well as your liver enzymes were elevated (which could be from infection, right upper quadrant ultrasound was negative for any obstruction, just noted fatty liver). These levels have continued to improve on repeat and are almost back to normal. I would avoid use of the methocarbamol for headaches in the meantime as these can elevate these levels as well. Please follow up with your business intelligence reporting analyst/oncologist for routine screening/testing and maintenance surveillance for your lung nodules on previous imaging. You should follow up with your primary care provider to monitor your status after discharge from the hospital in the next 7-10 days. Please return to the ER if you have any worsening abdominal pain, fever, inability to tolerate oral intake, increased bleed, increased flank pain, nausea, or for any other symptoms that are concerning for you. Pending Studies at Discharge: Yes Studies:: Stool studies Stand-Alone Forms: My [facility] [employer], Work/School Release, Smoking Cessation Medications and DC Order Prescriptions: New amoxicillin-pot clavulanate 875-125 mg tablet 1 tab PO BID 6 Days Qty: 11 0RF tamsulosin 0.4 mg capsule 0.4 mg PO HS Qty: 30 0RF pantoprazole 40 mg tablet,delayed release (DR/EC) 40 mg PO BID Qty: 60 0RF Continued multivitamin Tablet 1 tab PO QAM biotin 10 mg Tablet 10 mg PO QAM Discontinued metronidazole 500 mg tablet 500 mg PO Q8 Rx Instructions: take for 10 days ordered 10/07/22 ciprofloxacin HCl 500 mg tablet 500 mg PO Q12 Rx Instructions: ordered 10/06/22 take for 7 days tamsulosin 0.4 mg capsule 0.4 mg PO HS Rx Instructions: ordered 10/06/22 take for 7 days Discharge Orders: Discharge Order (Routine); Ordered 10/14/22 Ordered By: Radha Valdez/Other Patient Handouts: Low-Fiber Diet Admission Data Admit Date/Time: 10/10/22 14:59 Attending Provider: Cheryl Rizvi Admit Provider: Kurt Howard Primary Care Provider: Alex Durand Other Providers: Kurt Howard ; Braxton Pena ; Shira Trinidad Other Interventions: Discharge Summary Assessment (RN) Last Done: 10/14/22 12:17 Supervising Physician Co-Signing Physician Notes PA Supervision Note: I personally saw and examined the patient. I verified all colon points and agree with JULIANO Maldonado with the following exceptions and/or additions: Subjective: 51 yo F Hx diverticulitis admitted following treatment failure outpatient for a diverticulitis flare. Symptoms improving greatly with IV antibiotics, no abdominal pain at this time and tolerating meals well without issues. Had some blood in stools today, without symptoms of dizziness or lightheadedness. Had some diarrhea during admission, resolved. Physical exam: Vitals reviewed Gen: Alert and oriented, NAD CV: RRR no mgr nl S1S2 Pulm: CTAB no wcr Abd: +BS soft NT ND no masses Ext: no edema, 2+ DP pulses Skin: no rashes, warm/dry Neuro: No focal neurologic deficits Labs, Rads, and ECG reviewed Assessment and Plan: Diverticulitis: Agree with Augmentin course to complete on 10/20. Given symptomatically improving patient is stable for discharge home with outpatient GI follow up for colonoscopy. Blood in stool: blood in stool today, Hgb 14.2 and not atypical to have some small amount of blood in stool with diverticular flare, but could also be secondary to PUD. GI aware and will perform outpatient EGD when she has her colonoscopy for the above. BID PPI PO on discharge, and avoidance of NSAIDs until GI evaluation. Nephrolithiasis: History of, with evidence of small right renal calculus with mild hydronephrosis. No evidence of infected stone. Urology consulted and recommended tamsulosin/outpatient follow up. Plan otherwise as stated above. Coding Level of Care Code HOSP INP/OBS DISCH >30 MIN Diagnoses Diverticulitis K57.92 Chronic migraine G43.709 Gastritis K29.70 Breast cancer C50.919 Hypercalcemia E83.52 LFT elevation R79.89 Kidney stone N20.0
[2022-10-14 08:06] LABS: Hematocrit (blood only) 40.5 % (37.0-47.0); Hemoglobin 14.2 g/dl (12.0-16.0); Mean Corpuscular Hemoglobin 31.1 pg (25.0-34.0); Mean Corpuscular Hgb Conc 35.1 g/dL (32.0-36.0); Mean Corpuscular Volume 88.6 fL (80.0-100.0); Mean Platelet Volume 9.5 fL (9.4-12.4); Platelet Count 365 K/uL (130-400); RDW Coefficient of Variation 13.1 % (11.5-14.5); RDW Standard Deviation 41.8 fL (36.4-46.3); Red Blood Count 4.57 M/uL (4.20-5.40); White Blood Count 8.71 K/ul (4.8-10.8)
[2022-10-14 08:18] LABS: Albumin Globulin Ratio 1.2 (0.9-2); Albumin Level 3.8 gm/dl (3.4-5.0); BUN Creatinine Ratio 6.7 (10-20); Bilirubin,Total 0.5 mg/dl (0.2-1.0); Calcium 9.9 mg/dl (8.5-10.1); Creatinine Clr Calc Pharmacy 85.1 ml/min; Est GFR (Non-African American) 92.3 ml/min; Globulin 3.3 gm/dl (2.5-4.0); Magnesium 1.9 mg/dl (1.7-2.4); Potassium 4.2 mmol/L (3.5-5.1); Total Protein 7.1 gm/dl (6.0-8.3)
[2022-10-14] MEDS: PANTOprazole 40 MG TAB PO SCH (08:47)
[2022-10-14] MEDS ORDERED: ACETAMINOPHEN 500 MG TAB PO ONE (08:59)
[2022-10-15 13:27] LABS: IgA Serum 270 mg/dL (47-310); Tis Trans IgA <1.0 U/mL
[2022-10-19 20:18] LABS: Calprotectin, Stool 989 mcg/g
== END 2022-10-14 13:48 | disposition home or self-care (01) | DRG 391 ==
LOC: ED 10:15 → SUATTDRO 14:59 → 3N 14:59